=== PATIENT | female | born 1935 | race Caucasian/White ===

== ENCOUNTER 2016-06-19 20:59 | Inpatient (IN) | payer OTHER, MEDICAID ==
[~2016-06-19] VITALS: Ht 149.9 cm; Wt 35.8 kg
[2016-06-19 21:25] VITALS: Ht 149.9 cm; Wt 35.8 kg
[2016-06-19] MEDS ORDERED: SOD CHLORIDE 0.9% 1,000 ML IV STA (21:25)
[2016-06-19 21:37] LABS: ADD SCAN DIFF NO
[2016-06-19 21:39] LABS: ABNORMAL IP MESSAGE 1; HEMATOCRIT 43.8 % (37.0-47.0); HEMOGLOBIN 14.2 g/dl (12.0-16.0); MEAN CORPUSCULAR HEMOGLOBIN 28.9 pg (29.0-33.0); MEAN CORPUSCULAR HGB CONC 32.4 g/dl (32.0-37.0); MEAN CORPUSCULAR VOLUME 89.2 fl (82.0-101.0); MEAN PLATELET VOLUME 9.8 fl (7.4-10.4); PLATELET COUNT 291 10^3/UL (140-415); RED BLOOD COUNT 4.91 10^6/ul (4.20-5.40); RED CELL DISTRIBUTION WIDTH 12.3 % (11.5-14.5); WHITE BLOOD COUNT 21.2 10^3/ul (4.8-10.8)
[2016-06-19 21:50] LABS: INR 1.08; PT RATIO 1.1
[2016-06-19 21:52] LABS: ALBUMIN 3.6 g/dl (3.3-4.9)
[2016-06-19 21:53] LABS: POTASSIUM 3.9 mmol/L (3.5-5.1)
[2016-06-19 21:55] LABS: ALBUMIN/GLOBULIN RATIO 1.56; BILIRUBIN,INDIRECT 0.7 mg/dl (0-1.1); BILIRUBIN,TOTAL 0.7 mg/dl (0.2-1.3); CALCIUM 9.2 mg/dl (8.4-10.2); CREATININE 0.6 mg/dl (0.44-1.00); TOTAL PROTEIN 5.9 g/dl (6.1-8.1)
[2016-06-19 22:05] LABS: TROPONIN-I 0.049 ng/ml (0.00-0.12)
--- NOTE | 2016-06-19 22:07 | RADRPT ---
PROCEDURE: XR Chest. CLINICAL INDICATION: Chest pain. Abdominal pain TECHNIQUE: Portable AP upright view of the chest was obtained. COMPARISON: None. FINDINGS: The cardiomediastinal silhouette is within normal limits. The lungs are hyperinflated but show no e vidence of infiltrates. There is no evidence for pleural effusion, pneumothorax or pulmonary vascul ar congestion. The osseous structures are intact with no evidence for acute abnormality. Calcificat ion of the aorta is present. No free air seen below the diaphragm. RPTAT:HJJR IMPRESSION: 1. Hyperinflation of the lungs concerning for chronic obstructive pulmonary disease without evidenc e of acute intrathoracic abnormality. 2. Aortic atherosclerosis is present. Physician Osvaldo Date Time Electronically viewed and signed by Antonio Garibay Physician on 06/19/2016 22:07 JR/
[2016-06-19 22:10] LABS: LYMPHOCYTES # 1.5 10^3/ul (0.8-2.9); MONOCYTE # 2.3 10^3/ul (0.3-0.9); NEUTROPHIL # 17.4 10^3/ul (1.6-7.5)
[2016-06-19 22:29] LABS: ADD UMIC YES; URINE BILIRUBIN (Dip) 1+ (NEGATIVE); URINE BLOOD (Dip) NEGATIVE (NEGATIVE); URINE COLOR YELLOW (YELLOW); URINE GLUCOSE (Dip) NEGATIVE (NEGATIVE); URINE KETONES (Dip) 15 (NEGATIVE); URINE LEUKOCYTE ESTERASE (Dip) NEGATIVE (NEGATIVE); URINE NITRITE (Dip) NEGATIVE (NEGATIVE); URINE TOTAL PROTEIN (Dip) 2+ (NEGATIVE); URINE UROBILINOGEN (Dip) 1.0 E.U./dL (0.1-1.0)
[2016-06-19 22:30] VITALS: TEMP 98.7
[2016-06-19] MEDS ORDERED: ACETAMINOPHEN 325 MG TAB PO PRN (22:30)
[2016-06-19] MEDS ORDERED: ONDANSETRON 4 MG INJ IV PRN (22:30)
[2016-06-19 22:45] LABS: SQUAMOUS EPITHELIAL CELL,UR MODERATE; URINE RBCS 0-2 /HPF (0)
--- NOTE | 2016-06-19 22:58 | ERA ---
ER Documentation Chief Complaint Date/Time DATE: 06/19/16 TIME: 22:56 Chief Complaint N/V X 6 MONTHS, MESENTERIC ISCHEMIA PER OUTSIDE HOSPITAL. HPI Patient is a 1-year-old female with CHF, hypertension, and diabetes who presents with mesenteric ischemia. The patient was brought in by ambulance. The patient was diagnosed with mesenteric ischemia at another hospital. The patient was transferred to [facility] for consultation with Dr. James who is planning to put in a stent. The patient has abdominal pain with nausea and vomiting over the past 6 months. She denies bloody stools. The abdominal pain was diffuse. Her white blood cell count was elevated at the outside hospital. Upon review of old medical records this is the first visit to our emergency department. She says that her primary doctor is in [place]. ROS All systems reviewed and are negative except as per history of present illness. Allergies Allergies: Coded Allergies: aspirin (Unverified Allergy, Unknown, 06/19/16) bee venom protein (honey bee) (Unverified Allergy, Unknown, 06/19/16) ibuprofen (Unverified Allergy, Unknown, 06/19/16) PMhx/Soc Anesthesia Reaction: No Hx Neurological Disorder: No Hx Respiratory Disorders: No Hx Psychiatric Problems: No Hx Miscellaneous Medical Probl: Yes (DM, CKD, COPD) Hx Alcohol Use: No Hx Substance Use: No Hx Tobacco Use: No Smoking Status: Unknown if ever smoked FmHx Family History: No diabetes Physical Exam Vitals Vital Signs Date Time Temp Pulse Resp B/P Pulse Ox O2 Delivery O2 Flow Rate FiO2 06/19/16 21:25 98.6 79 17 148/99 100 Physical Exam Const: Mild distress secondary to pain Head: Atraumatic Eyes: Normal Conjunctiva ENT: Normal External Ears, Nose and Mouth. Neck: Full range of motion..~ No meningismus. Resp: Clear to auscultation bilaterally Cardio: Regular rate and rhythm, no murmurs Abd: Soft, diffuse tenderness to palpation Skin: No petechiae or rashes Back: No midline or flank tenderness Ext: No cyanosis, or edema Neur: Awake and alert Psych: Normal Mood and Affect Result Diagram: 06/19/16213106/19/162131 Results 24 hrs Laboratory Tests Test 06/19/16 21:32 06/19/16 22:10 White Blood Count 21.210^3/ul Red Blood Count 4.9110^6/ul Hemoglobin 14.2g/dl Hematocrit 43.8% Mean Corpuscular Volume 89.2fl Mean Corpuscular Hemoglobin 28.9pg Mean Corpuscular Hemoglobin Concent 32.4g/dl Red Cell Distribution Width 12.3% Platelet Count 49711^3/UL Mean Platelet Volume 9.8fl Neutrophils % 82.0% Lymphocytes % 7.0% Monocytes % 11.0% Neutrophils # 17.410^3/ul Lymphocytes # 1.510^3/ul Monocytes # 2.310^3/ul Prothrombin Time 14.0Sec Prothrombin Time Ratio 1.1 INR International Normalized Ratio 1.08 Activated Partial Thromboplast Time 25.0Sec Sodium Level 136mmol/L Potassium Level 3.9mmol/L Chloride Level 98mmol/L Carbon Dioxide Level 26mmol/L Anion Gap 16 Blood Urea Nitrogen 15mg/dl Creatinine 0.60mg/dl Glucose Level 171mg/dl Calcium Level 9.2mg/dl Total Bilirubin 0.7mg/dl Direct Bilirubin 0.00mg/dl Indirect Bilirubin 0.7mg/dl Aspartate Amino Transf (AST/SGOT) 21IU/L Alanine Aminotransferase (ALT/SGPT) 26IU/L Alkaline Phosphatase 78IU/L Troponin I 0.049ng/ml Total Protein 5.9g/dl Albumin 3.6g/dl Globulin 2.30g/dl Albumin/Globulin Ratio 1.56 Lipase 13U/L Urine Color YELLOW Urine Clarity CLEAR Urine pH 6.0 Urine Specific [place] >=1.030 Urine Ketones 15 Urine Nitrite NEGATIVE Urine Bilirubin 1+ Urine Ictotest Pending Urine Urobilinogen 1.0 E.U./dL Urine Leukocyte Esterase NEGATIVE Urine Microscopic RBC 0-2/HPF Urine Microscopic WBC 0-2/HPF Urine Squamous Epithelial Cells MODERATE Urine Hemoglobin NEGATIVE Urine Glucose NEGATIVE% Urine Total Protein 2+ Current Medications Medications (Trade) Dose Ordered Sig/Gregory Route PRN Reason Start Time Stop Time Status Last Admin Dose Admin Sodium Chloride (NS) 1,000 ml @ 1,000 mls/hr Q1H STAT IV 06/19/16 21:25 06/19/16 22:24 DC 06/19/16 21:39 Ondansetron HCl (Zofran Inj) 4 mg BRIDGE ORDER PRN IV NAUSEA AND/OR VOMITING 06/19/16 22:30 06/20/16 22:29 Acetaminophen (Tylenol Tab) 650 mg ER BRIDGE PRN PO MILD PAIN/FEVER 06/19/16 22:30 06/20/16 22:29 Procedures/MDM EKG read by me: Rate/Rhythm: Regular rate and rhythm at a normal rate Intervals: Normal Impression: No evidence of ischemia or arrhythmia Smoking Cessation Therapy: Pt. was lectured for greater than 3 minutes on the health risks of continued smoking and the benefits of cessation. Patient is a 80-year-old female who presents with leukocytosis and acute mesenteric ischemia. I spoke with Dr. James who will see the patient in consultation. I spoke with Dr. Shah as the patient has SCAN O and will admit the patient to a medical surgical bed. Departure Diagnosis: Primary Impression: Leukocytosis Qualified Code: D72.829 - Leukocytosis, unspecified type Additional Impression: Acute mesenteric ischemia FRANCISCA SELBY MD Jun 19, 2016 22:58
[2016-06-19 23:04] LABS: ICTOTEST NEGATIVE (NEGATIVE)
[2016-06-19 23:30] VITALS: BP 138/62; RESP 18
[2016-06-20] MEDS ORDERED: LOVA20TA PO (01:34)
[2016-06-20] MEDS ORDERED: GABA300C16 PO (01:34)
[2016-06-20] MEDS ORDERED: CLOP75TA27 PO (01:34)
[2016-06-20] MEDS ORDERED: METF500T4 PO ×2 (01:34→06:22)
[2016-06-20] MEDS ORDERED: LISI40TA9 PO (01:34)
--- NOTE | 2016-06-20 01:40 | QN ---
Documentation Comment H&P dict a/p 1. gi: abdo pain, weight loss, nausea and vomiting, likely all related to mesenteric ischemia, await angiogram and anticipated angioplasty/stent 2. leukocytosis, likelty related to #1 3. dm 4. tobacco abuse, cessartion counselled 5. copd 6. dm 7. proph: KAYLEIGH Palm MD Jun 20, 2016 01:40
--- NOTE | 2016-06-20 01:57 | HP ---
DATE OF ADMISSION: 06/19/2016 CHIEF COMPLAINT: Abdominal pain. HISTORY OF PRESENT ILLNESS: Ms. Beckett presents to the emergency room at [facility] with ab dominal pain and nausea. This has been ongoing for the last 6 months or so, but has become progress ively worse with ____ pain with any attempt at eating. When she eats, the pain is worse. She occas ionally does vomit and occasionally not. She does state there has been mild diarrhea. No fevers or chills. She has known stenosis of the superior mesenteric artery for the last 6 months or so while this has been going on. She does acknowledge there has been approximately 40 pounds of weight loss over the same period of time. PAST MEDICAL HISTORY: Significant for tobacco abuse, hypertension, hyperlipidemia, COPD. MEDICATIONS OUTPATIENT: Include: 1. Plavix 75 mg daily. 2. Lisinopril 40 mg daily. 3. Lovastatin 20 mg daily. 4. Neurontin 300 mg daily. 5. Metformin 500 mg daily. ALLERGIES: 1. ASPIRIN. 2. IBUPROFEN. SOCIAL HISTORY: The patient lives at home in [place] with her , independent of activities of daily living. Does occasionally use a cane or walker for ambulation. Is a current smoker. Leonard es alcohol or illicit drug use. FAMILY HISTORY: Noncontributory. REVIEW OF SYSTEMS: Five systems reviewed and found not to be revealing. PHYSICAL EXAMINATION: VITAL SIGNS: Blood pressure is 138/62, pulse rate 68, respirations 18, temperature is 98.3, satting 95% on room air. GENERAL: Pleasant woman in no acute distress, alert, and oriented x3. HEENT: Normocephalic, atraumatic without scleral icterus, perioral cyanosis. Mucous membranes are dry. NECK: Soft and supple without masses. No evidence of jugular venous distention or carotid bruits. CHEST: Clear to auscultation and percussion bilaterally. HEART: Regular rate and rhythm. S1, S2. No added sounds. ABDOMEN: Soft, nontender, nondistended without palpable hepatosplenomegaly. EXTREMITIES: Without clubbing, cyanosis, or edema. Feet are cold. Pedal pulses are not palpable w ith delayed capillary refill. SKIN: Without rashes. NEUROLOGIC: Grossly intact. LABORATORY STUDIES: Reveal a hemoglobin of 14.2 g/dL, white count 21,200; platelets of 291,000. IN R is 1.08. Sodium 136, potassium 3.9, chloride 98, bicarbonate 26, BUN 15, creatinine 0.6, glucose 171. Liver function tests are unremarkable. UA is negative for signs of infection. The patient joseph d a chest x-ray, which is normal. She brings a copy of the report from a CT scan done in the ambula tory setting, which does comment on high grade stenosis of the superior mesenteric artery, which was done in April of this year. ASSESSMENT AND PLAN: 1. Gastrointestinal. The patient with abdominal pain, nausea, vomiting, weight loss, likely all re lated to superior mesenteric artery stenosis. Dr. James has been notified prior to the patient' s arrival and he plans to do angioplasty in the morning. We will plan to keep patient n.p.o. at thi s time. 2. Leukocytosis, almost certainly related to gastrointestinal complaint. Continue to monitor. 3. Cardiac. The patient with peripheral vascular disease. Continue secondary prevention. 4. Pulmonary. The patient with ongoing tobacco abuse, cessation is counseled. 5. Chronic obstructive pulmonary disease, currently quiescent. Continue to monitor. 6. Prophylaxis with DWAYNE hector. Dictated By: KAYLEIGH CUBA MD RER/NTS Conf#: [id number] DID#: [id number]
[2016-06-20] MEDS ORDERED: INSULIN ASPART [NOVOLOG] 3 ML PEN SC ONE (02:00)
[2016-06-20] MEDS ORDERED: LISINOPRIL 20 MG TAB PO PRN (02:00)
[2016-06-20] MEDS ORDERED: ALBUTEROL/IPRATROPIUM (NEB) 3 ML AMP HHN PRN (02:00)
[2016-06-20] MEDS ORDERED: ACETAMINOPHEN 325 MG TAB PO PRN (02:00)
[2016-06-20] MEDS: SOD CHLORIDE 0.9% 1,000 ML IV SCH ×3 (02:21→13:12)
[2016-06-20 07:53] VITALS: BP 135/64; RESP 19
[2016-06-20] MEDS: GABAPENTIN 300 MG CAP PO SCH (08:34)
[2016-06-20] MEDS: CLOPIDOGREL 75 MG TAB PO SCH (08:34)
[2016-06-20] MEDS: morphine 4 MG/ML VIAL IV PRN (10:42)
--- NOTE | 2016-06-20 12:39 | PN ---
Date/Time of Note Date/Time of Note DATE: 06/20/16 TIME: 12:38 Assessment/Plan VTE Prophylaxis VTE Prophylaxis Intervention: SCD's Lines/Catheters IV Catheter Type (from Nrsg): Saline Lock Assessment/Plan Assessment/Plan 80 yo female with: 1. Abdominal pain, nausea, vomiting, weight loss, likely all related to superior mesenteric artery stenosis and concerns for mesenteric ischemia now Dr. James has been notified prior to the patient's arrival and he plans to do angioplasty today per reports Keeping NPO Continue IVF and IV abx and anticoag with Lovenox added Follow up vascular recs after repeat CT today 2. Leukocytosis, almost certainly related to gastrointestinal complaint and possible ischemic colitis/mesenteric ischemia. Start Imipenem 3. Peripheral vascular disease. Continue secondary prevention. 4. Chronic obstructive pulmonary disease, with known tobacco use Nebs prn Monitor respiratory status. 5. Tobacco abuse, cessation is counseled. Prophylaxis: Lovenox treatment dose and PPI with GI ppx. Disposition: Vascular Surgery eval and mesenteric angio pending Subjective 24 Hr Interval Summary Free Text/Dictation Patient doing Ok today, pain controlled and NPO on IVF CT a/p with contrast pending and started on anticoag and abx per Vascular Exam/Review of Systems Vital Signs Vitals Vital Signs Date Time Temp Pulse Resp B/P Pulse Ox O2 Delivery O2 Flow Rate FiO2 06/20/16 07:53 98.0 80 19 135/64 100 06/19/16 22:30 Room Air Intake and Output 06/19/16 06/19/16 06/20/16 15:00 23:00 07:00 Intake Total 500 ml Balance 500 ml Exam Constitutional: alert, oriented, well developed Respiratory: clear to auscultation, normal air movement Cardiovascular: nl pulses, regular rate and rhythm Gastrointestinal: soft, tender (diffuse abdomen ) Musculoskeletal: nl extremities to inspection Extremities: normal pulses, other (no edema, clubbing or cyaosis ) Neurological: LABORER CHEMICAL PROCESSING II-XII intact, nl mental status, nl speech, nl strength Results Result Diagram: 06/19/16213106/19/162131 Results 24 hrs Laboratory Tests Test 06/19/16 21:32 06/19/16 22:10 06/20/16 02:19 06/20/16 03:14 White Blood Count 21.2 H Red Blood Count 4.91 Hemoglobin 14.2 Hematocrit 43.8 Mean Corpuscular Volume 89.2 Mean Corpuscular Hemoglobin 28.9 L Mean Corpuscular Hemoglobin Concent 32.4 Red Cell Distribution Width 12.3 Platelet Count 291 Mean Platelet Volume 9.8 Neutrophils % 82.0 H Lymphocytes % 7.0 L Monocytes % 11.0 Neutrophils # 17.4 H Lymphocytes # 1.5 Monocytes # 2.3 H Prothrombin Time 14.0 Prothrombin Time Ratio 1.1 INR International Normalized Ratio 1.08 Activated Partial Thromboplast Time 25.0 Sodium Level 136 Potassium Level 3.9 Chloride Level 98 Carbon Dioxide Level 26 Anion Gap 16 Blood Urea Nitrogen 15 Creatinine 0.60 Glucose Level 171 Calcium Level 9.2 Total Bilirubin 0.7 Direct Bilirubin 0.00 Indirect Bilirubin 0.7 Aspartate Amino Transf (AST/SGOT) 21 Alanine Aminotransferase (ALT/SGPT) 26 Alkaline Phosphatase 78 Troponin I 0.049 Total Protein 5.9 L Albumin 3.6 Globulin 2.30 Albumin/Globulin Ratio 1.56 Lipase 13 L Urine Color YELLOW Urine Clarity CLEAR Urine pH 6.0 Urine Specific [place] >=1.030 H Urine Ketones 15 Urine Nitrite NEGATIVE Urine Bilirubin 1+ H Urine Ictotest NEGATIVE Urine Urobilinogen 1.0 E.U./dL Urine Leukocyte Esterase NEGATIVE Urine Microscopic RBC 0-2 Urine Microscopic WBC 0-2 Urine Squamous Epithelial Cells MODERATE Urine Hemoglobin NEGATIVE Urine Glucose NEGATIVE Urine Total Protein 2+ H Bedside Glucose 176 156 Medications Medications Current Medications Sodium Chloride (NS) 1,000 ml @ 100 mls/hr Q10H IV Last administered on 02:21; Admin Dose 100 MLS/HR; Start 06/20/16 at 02:00 Acetaminophen (Tylenol Tab) 650 mg Q4H PRN PO PAIN AND OR ELEVATED TEMP; Start 06/20/16 at 02:00 Morphine Sulfate (morphine) 4 mg Q4H PRN IV pain Last administered on 10:42; Admin Dose 4 MG; Start 06/20/16 at 02:00 Ondansetron HCl (Zofran Inj) 4 mg Q4H PRN IV NAUSEA AND/OR VOMITING; Start 02/24 at 02:00 Hydralazine HCl (Apresoline) 25 mg Q6 PRN PO sbp>160; Start 06/20/16 at 02:00 Clopidogrel Bisulfate (plaVIX) 75 mg DAILY PO Last administered on 06/20/16 08 :34; Admin Dose 75 MG; Start 06/20/16 at 09:00 Gabapentin (Neurontin) 300 mg DAILY PO Last administered on 06/20/16 08:34; Admin Dose 300 MG; Start 06/20/16 at 09:00 Lisinopril (Zestril) 40 mg DAILY PRN PO ELEVATED BLOOD PRESSURE; Start at 02:00 Atorvastatin Calcium (Lipitor) 10 mg DAILY@21 PO ; Start 06/20/16 at 21:00 NITIN ZEPEDA Jun 20, 2016 12:39
[2016-06-20] MEDS ORDERED: IOHEXOL 14.3 MG(I)/ML (ADULT) BTL PO ONE (13:30)
[2016-06-20] MEDS: NICOTINE (21 MG/24 HR) PATCH TRANSDERM SCH (13:30)
[2016-06-20] MEDS ORDERED: ENOXAPARIN 40 MG/0.4 ML SYG SC SCH (13:30)
[2016-06-20] MEDS ORDERED: GLUCAGON 1 MG INJ IM PRN (14:00)
[2016-06-20] MEDS ORDERED: DEXTROSE 50% 50 ML SYRINGE IV PRN ×2 (14:00)
[2016-06-20] MEDS ORDERED: GLUCOSE GEL 15 GRAM TUBE BUCCAL PRN (14:00)
[2016-06-20] MEDS ORDERED: GLUCOSE GEL 15 GRAM TUBE PO PRN ×2 (14:00)
[2016-06-20 14:13] LABS: INR 1.17; PT RATIO 1.2
[2016-06-20 14:14] LABS: PARTIAL THROMBOPLASTIN TIME 27.2 Sec (25.0-35.0)
[2016-06-20] MEDS ORDERED: SOD CHLORIDE 0.9% 100 ML ONE (14:23)
[2016-06-20] MEDS ORDERED: IODIXANOL LOCM 100 ML BTL ONE (14:23)
[2016-06-20] MEDS: INSULIN ASPART [NOVOLOG] 3 ML PEN SC SCH ×3 (15:00→23:43)
[2016-06-20] MEDS: IMIPENEM-CILAST 250MG IV (PMX) 100 ML IVPB SCH ×2 (15:03→23:39)
--- NOTE | 2016-06-20 16:40 | RADRPT ---
PROCEDURE: CT Abdomen and Pelvis with contrast. CLINICAL INDICATION: Abdominal pain. Evaluate for mesenteric ischemia. TECHNIQUE: CT scan of the abdomen and pelvis with contrast was performed on a multi-detector high- resolution CT scanner. The patient was scanned following the uncomplicated intravenous administrati on of 75 cc of Visipaque 320. Coronal and sagittal reformatted images were obtained from the axial source images. Images were reviewed on a high-resolution PACS workstation. The total exam CTDI equal s 4.47 mGy and the total exam DLP equals 198.11 mGy-cm. One or more of the following dose reduction techniques were used: Automated exposure control. Adjustment of the mA and/or kV according to patient size. Use of iterative reconstruction technique. COMPARISON: None. FINDINGS: CT abdomen: The lung bases are clear. The heart size is normal, without pericardial thickening or effusion. Th e liver is normal in size and density without focal mass or intrahepatic biliary dilatation. The sp derek is normal in size and homogeneous in density. The stomach is partially collapsed, but is gross ly unremarkable. The pancreas as visualized is normal. The gallbladder and biliary tree are unrema rkable and there is no evidence for biliary dilatation. The adrenal glands are symmetric and normal . There is atrophic left kidney with mild delayed enhancement. Right kidney is unremarkable. There a re a few small cortical cysts in bilateral kidneys measures up to 1.2 cm in the lower pole right kid curt. Extensive concentric calcific atherosclerotic plaques are seen involving the abdominal aorta and jo ann ac arteries with no aneurysmal dilatation. There is some ostial stenosis of the celiac artery. Ther e is suspected high-grade stenosis of the SMA. There is severe ostial stenosis of the left renal art maddy. There is probable moderate stenosis of the right renal artery. There is probable moderate sten osis of the proximal left common iliac artery. Heavily calcified circumferential plaque involving t he iliac arteries with suspected a high-grade stenosis in mid distal right common iliac artery. There is no retroperitoneal lymphadenopathy. The willy hepatis region is clear. The bowel and mese ntery, as visualized, are equally unremarkable. CT pelvis: The evaluation of the pelvis is somewhat limited due to orthopedic hardware in the hips. The small bowel loops situated within the pelvis are unremarkable. The pelvic organs are normal. The pelvic sidewalls and inguinal regions are clear. The sigmoid colon and rectum are unremarkable. No mass, lymphadenopathy, or free fluid is seen. No acute inflammation is seen. The bladder is normal. The surrounding osseous structures are unremarkable. No osteolytic or osteoblastic lesion is detected. IMPRESSION: The evaluation of the vascularity is somewhat limited due to venous phase of the study. Consider CT A of the abdomen and pelvis for better assessment of the arteries. 1. 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 2. Heavily calcified circumferential plaque involving the abdominal aorta and iliac arteries with s uspected high-grade stenosis of the mid distal right common iliac artery and moderate stenosis of th e proximal left common iliac artery. 3. 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 4. No secondary signs of ischemic bowel. 5. Atrophic left kidney. RPTAT: BB .Arnaldo Carlin MD, MD Date Time Electronically viewed and signed by .Arnaldo Carlin MD, on 06/20/2016 16:40 .O/
[2016-06-20 19:00] VITALS: BP 115/52; RESP 20
[2016-06-20] MEDS: ATORVASTATIN 10 MG TAB PO SCH (21:12)
[2016-06-20] MEDS: DEXTROSE 5%-0.9% NACL 1,000 ML IV SCH (21:13)
--- NOTE | 2016-06-20 22:03 | CONS ---
DATE OF ADMISSION: 06/20/2016 DATE OF CONSULTATION: REASON FOR CONSULTATION: SMA stenosis. Thank you, Dr. Lloyd, for asking me to see this patient. HISTORY OF PRESENT ILLNESS: This is an 80-year-old female with a history of abdominal pain, previou sly had been worked up to have possible SMA stenosis. The patient has lost 40 pounds over the cours e of the last 6 months. The patient tells me that her pain is mostly in the mid abdomen and does ge t worse after eating. The patient was admitted, was kept n.p.o., had a CT of the abdomen with contr ast which has shown high-grade stenosis of the superior mesenteric artery, ____ heavily calcified ci rcumferential plaque involving the abdominal aorta and iliac arteries and high-grade stenosis of the right common iliac artery, moderate stenosis of the proximal left common iliac artery. PAST MEDICAL HISTORY: Significant for history of coronary artery disease. 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 Also positive for diabetes. PAST SURGICAL HISTORY: None. MEDICATIONS: 1. Plavix. 2. Lisinopril. 3. Lovastatin. 4. ____. 5. Metformin. ALLERGIES: NONE. SOCIAL HISTORY: Positive for smoking and is a current smoker. PHYSICAL EXAMINATION: GENERAL: The patient is awake, alert. She tells me her pain has subsided. VITAL SIGNS: Blood pressure is 135/64, pulse is 80, respirations 19, saturation is 100%. CARDIOVASCULAR: Regular rate and rhythm. Normal S1, S2. LUNGS: Clear. ABDOMEN: Soft. Nontender at the time of the exam. EXTREMITIES: Warm. Palpable femoral pulses. LABORATORY VALUES: White count is 21 with a left-sided shift, hemoglobin 14. INR 1.17 and a creati nine of 0.6. 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 RECOMMENDATIONS: The patient will need an angiogram, possible angioplasty. However, she is at high risk of dissection secondary to high calcification. RECOMMENDATIONS: The patient will need cardiac clearance secondary to previous MIs and congestive h eart failure prior to any procedures which may bleed into open surgical procedure. Discussed with t he patient. Will discuss with Dr. Lloyd. Dictated By: MALIA BUTLER/MARIBELL Conf#: [id number] [facility]#: [id number]
[2016-06-21] MEDS: morphine 4 MG/ML VIAL IV PRN ×2 (03:58→21:59)
[2016-06-21] MEDS: INSULIN ASPART [NOVOLOG] 3 ML PEN SC SCH ×3 (05:41→18:08)
[2016-06-21] MEDS: DEXTROSE 5%-0.9% NACL 1,000 ML IV SCH ×3 (05:43→21:55)
[2016-06-21 05:58] LABS: ADD SCAN DIFF NO
[2016-06-21 06:03] LABS: BASOPHILS % 0.4 % (0.0-2.0); EOSINOPHILS % 0.2 % (0.0-7.0); HEMATOCRIT 36.3 % (37.0-47.0); HEMOGLOBIN 11.6 g/dl (12.0-16.0); LYMPHOCYTES # 0.8 10^3/ul (0.8-2.9); LYMPHOCYTES % 10.2 % (15.0-51.0); MEAN CORPUSCULAR HEMOGLOBIN 29.1 pg (29.0-33.0); MEAN CORPUSCULAR VOLUME 91.2 fl (82.0-101.0); MEAN PLATELET VOLUME 10.1 fl (7.4-10.4); MONOCYTE # 1.2 10^3/ul (0.3-0.9); MONOCYTES % 15.1 % (0.0-11.0); NEUTROPHILS % 73.7 % (39.0-77.0); PLATELET COUNT 217 10^3/UL (140-415); RED BLOOD COUNT 3.98 10^6/ul (4.20-5.40); RED CELL DISTRIBUTION WIDTH 12.5 % (11.5-14.5); WHITE BLOOD COUNT 8.2 10^3/ul (4.8-10.8)
[2016-06-21 06:18] LABS: MAGNESIUM 1.5 mg/dl (1.7-2.5)
[2016-06-21 06:20] LABS: ALBUMIN 2.3 g/dl (3.3-4.9); ALBUMIN/GLOBULIN RATIO 1.15; BILIRUBIN,INDIRECT 0.2 mg/dl (0-1.1); BILIRUBIN,TOTAL 0.2 mg/dl (0.2-1.3); CALCIUM 7.6 mg/dl (8.4-10.2); CREATININE 0.5 mg/dl (0.44-1.00); POTASSIUM 3.6 mmol/L (3.5-5.1); TOTAL PROTEIN 4.3 g/dl (6.1-8.1)
[2016-06-21 07:31] VITALS: BP 112/56; RESP 16
[2016-06-21] MEDS: GABAPENTIN 300 MG CAP PO SCH (08:53)
[2016-06-21] MEDS: CLOPIDOGREL 75 MG TAB PO SCH (08:53)
[2016-06-21] MEDS: IMIPENEM-CILAST 250MG IV (PMX) 100 ML IVPB SCH ×2 (08:54→21:15)
[2016-06-21] MEDS: NICOTINE (21 MG/24 HR) PATCH TRANSDERM SCH (09:11)
[2016-06-21 10:48] LABS: CK-MB 5.62 ng/ml (0.0-2.4)
[2016-06-21 10:51] LABS: TROPONIN-I 0.028 ng/ml (0.00-0.12)
[2016-06-21] MEDS ORDERED: MAGNESIUM SULFATE 2 GM/50 ML 50 ML IVPB ONE (11:00)
--- NOTE | 2016-06-21 13:38 | CONS ---
DATE OF ADMISSION: 06/20/2016 DATE OF CONSULTATION: 06/21/2016 REASON FOR CONSULTATION: Preoperative evaluation. REQUESTING PHYSICIAN: Dr. Zepeda HISTORY OF PRESENT ILLNESS: Ms. Beckett is an 80-year-old female with a history of ongoing tobacco us e, hypertension, dyslipidemia, chronic obstructive pulmonary disease, who presents with 6 months of worsening abdominal pain with decreased p.o. intake and significant weight loss of approximately 30 to 40 pounds. The patient since arrival has undergone abdominal pelvic CT which revealed a suspecte d high-grade stenosis of the SMA and a heavily calcified circumferential plaque involving the abdomi nal aortoiliac arteries, suspect high-grade stenosis of the mid distal right common iliac artery and moderate stenosis of the proximal left common iliac. 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 The patient additionally was noted to have a white blood cell count on admission of 21. 2. Sodium low 134 with a normal creatinine and BUN ratio. Normal PT/INR and a negative UA. The pa francisnt's electrocardiogram reveals normal sinus rhythm, rate of 62 with normal axis and inferior biph asic T-wave abnormalities. The patient subsequently has been evaluated by vascular surgery, Dr. Kimani mcginnis, with plans to attempt a percutaneous procedure which may turn into an open procedure, and as was requested for preoperative evaluation. At this time, the patient denies chest pain, shor tness of breath, but does state that she had a VT in 2004, for which she did not receive a stent, an giogram or stress test. The patient at this time does not to exertional activities. PAST MEDICAL HISTORY: As above in the HPI. MEDICATIONS CURRENTLY IN THE HOSPITAL: 1. Lipitor 10 mg at bedtime. 2. IV fluid hydration. 3. Imipenem 4. Lovenox 40 mg subcutaneous daily. 5. Plavix 75 mg daily. 6. Gabapentin 300 mg daily. 7. Tylenol p.r.n. 8. Morphine p.r.n. 9. Zofran p.r.n. 10. Zestril 40 mg p.o. p.r.n. 11. Hydralazine p.o. p.r.n. MEDICATIONS CURRENTLY IN HOSPITAL: 1. Magnesium. 2. Lipitor 20 mg at bedtime. 3. IV fluid hydration. 4. Imipenem 5. Lovenox 35 mg subcutaneous daily. 6. Plavix 75 mg daily. 7. Gabapentin 300 mg daily. 8. Tylenol p.r.n. 9. Morphine p.r.n. 10. Zofran p.r.n. 11. Hydralazine p.r.n. 12. Zestril p.r.n. 13. DuoNeb p.r.n. ALLERGIES 1. ASPIRIN. 2. IBUPROFEN. SOCIAL HISTORY: Positive ongoing tobacco usage. Rare social ETOH. No illicit drug use. FAMILY HISTORY: No history of sudden cardiac or early CAD. REVIEW OF SYSTEMS: As above in the HPI. CONSTITUTIONAL: No fevers or chills. PULMONARY: No current shortness of breath. CARDIOVASCULAR: No current chest pain. GASTROINTESTINAL: Abdominal pain. GENITOURINARY: No hematuria. MUSCULOSKELETAL: Degenerative joint disease. PSYCHIATRIC: The patient denies depression. NEUROLOGIC: No documented history of CVA. PHYSICAL EXAMINATION: VITAL SIGNS: Temperature 98.4, blood pressure 112/56, pulse 68, respirations 16, temperature . GENERAL: The patient is alert, awake, complaining of mild abdominal discomfort. NECK: JVP approximately 8 cm of water. CHEST: Fair air movement throughout. HEART: Regular rate and rhythm. Normal S1, S2. A I/ systolic murmur, nondisplaced PMI. ABDOMEN: Positive bowel sounds. Soft. EXTREMITIES: No edema. 1+ pulses bilaterally posterior tibial. LABORATORIES: As above in HPI, with most recently from today, sodium 134, potassium 3.6, creatinine 0.5, BUN 8. White blood cell count 8.2, hemoglobin 11.6, platelet count 217. INR 1.1. UA negativ e. IMAGING STUDIES: As above in HPI. No further imaging studies for my review at this time. ECG: As above in HPI. No further electrocardiograms for my review at this time. IMPRESSION: 1. Preoperative evaluation prior to treatment for likely ischemic bowel. 2. History of myocardial infarction. 3. Abnormal electrocardiogram, with biphasic inferior T-wave abnormalities. 4. Hypertension, borderline. 5. Dyslipidemia. 6. Ongoing tobacco usage. 7. Ischemic bowel. 8. Poor p.o. intake secondary to ischemic bowel, with subsequent weight loss. 9. Hyponatremia. RECOMMENDATIONS: 1. At this time would check a repeat EKG to assess for any significant changes and one additional t roponin to ensure the patient has not had any recent coronary syndrome lending to abnormal electroca rdiogram findings. 2. Additionally check a fasting lipid panel for general risk stratification and adjust the patient' s statin therapy as necessary. 3. Will follow the patient's blood pressure currently off antihypertensives, but if blood pressure does continue to elevate intermittently will start the patient on a beta cira in the setting of p robable coronary artery disease. 4. Check a 2D echo to further assess the patient's ejection fraction, wall motion or any major valv e abnormalities, given the possibility of significant vascular procedure with stressing the body, mu ltiple cardiac risk factors, EKG abnormalities, I believe this patient would benefit from further ri sk stratification, inpatient stress testing will thus be scheduled to take place in the morning. Thank you for allowing me to take part in the care of this patient. I will continue to follow along very closely with you. Further recommendations will be made as the patient progresses through her inpatient hospital clinical course. Dictated By: BALDO MCARTHUR/MARIBELL Conf#: [id number] DID#: [id number] CC: NITIN ZEPEDA MD;*EndCC*
--- NOTE | 2016-06-21 14:47 | PN ---
Date/Time of Note Date/Time of Note DATE: 06/21/16 TIME: 14:00 Assessment/Plan VTE Prophylaxis VTE Prophylaxis Intervention: SCD's Lines/Catheters IV Catheter Type (from Nrsg): Peripheral IV Assessment/Plan Assessment/Plan 80 yo female with: 1. Abdominal pain, nausea, vomiting, weight loss, likely all related to superior mesenteric artery stenosis and concerns for mesenteric ischemia now Dr. James has been notified prior to the patient's arrival and he plans to do angioplasty today per reports CT a/p here with suspected high-grade stenosis of the SMA. Per Dr Etienne, patient needs Cardiology eval, appreciate Dr Brannon' evaluation, given high risk of procedure, patient will require stress test in AM and further rec per Cardio and scheduling of procedure per Dr Etienne Will put on clears with NPO after midnight if Ok with Vascular Continue IVF and IV abx and anticoag with Lovenox 40 mg q24h per pharm recs Follow up vascular recs after repeat CT today 2. Leukocytosis, almost certainly related to gastrointestinal complaint and possible ischemic colitis/mesenteric ischemia. WBC back down to normal. On Imipenem 3. Peripheral vascular disease. Continue secondary prevention. 4. Chronic obstructive pulmonary disease, with known tobacco use Nebs prn Monitor respiratory status. 5. Tobacco abuse, cessation is counseled. Nicotine patch Prophylaxis: Lovenox treatment dose and PPI with GI ppx. Disposition: Clears, NPO after midnight, Stress test in AM, and vascular Surgery eval and mesenteric angio pending cardio evaluation. Subjective 24 Hr Interval Summary Free Text/Dictation Patient doing Ok this AM Cardiac eval ongoing with stress test planned for AM Clears and NPO after MN Exam/Review of Systems Vital Signs Vitals Vital Signs Date Time Temp Pulse Resp B/P Pulse Ox O2 Delivery O2 Flow Rate FiO2 06/21/16 07:31 98.4 68 16 112/56 96 06/19/16 22:30 Room Air Intake and Output 06/20/16 06/20/16 06/21/16 15:00 23:00 07:00 Intake Total 700 ml 900 ml 750 ml Output Total 200 ml Balance 700 ml 900 ml 550 ml Exam Constitutional: alert, frail, oriented Respiratory: clear to auscultation, normal air movement Cardiovascular: nl pulses, regular rate and rhythm Gastrointestinal: other (diffuse TTP), soft Musculoskeletal: nl extremities to inspection Extremities: normal pulses, other (no edema, clubbing or cyanosis ) Neurological: YOUTUBER II-XII intact, nl mental status, nl speech, nl strength Results Result Diagram: 06/21/1651706/21/1618 Results 24 hrs Laboratory Tests Test 06/20/16 15:20 06/20/16 19:08 06/20/16 19:37 06/20/16 19:53 Bedside Glucose 79 65 L 144 158 Test 06/20/16 23:38 06/21/16 05:18 06/21/16 05:36 06/21/16 10:18 Bedside Glucose 150 159 White Blood Count 8.2 # Red Blood Count 3.98 L Hemoglobin 11.6 L Hematocrit 36.3 L Mean Corpuscular Volume 91.2 Mean Corpuscular Hemoglobin 29.1 Mean Corpuscular Hemoglobin Concent 32.0 Red Cell Distribution Width 12.5 Platelet Count 217 # Mean Platelet Volume 10.1 Neutrophils % 73.7 Lymphocytes % 10.2 L Monocytes % 15.1 H Eosinophils % 0.2 Basophils % 0.4 Nucleated Red Blood Cells % 0.0 Neutrophils # 6.0 Lymphocytes # 0.8 Monocytes # 1.2 H Eosinophils # 0.0 Basophils # 0.0 Nucleated Red Blood Cells # 0.0 Sodium Level 134 L Potassium Level 3.6 Chloride Level 107 Carbon Dioxide Level 27 Anion Gap 4 #L Blood Urea Nitrogen 8 Creatinine 0.50 Glucose Level 166 Calcium Level 7.6 L Phosphorus Level 2.0 L Magnesium Level 1.5 L Total Bilirubin 0.2 Direct Bilirubin 0.00 Indirect Bilirubin 0.2 Aspartate Amino Transf (AST/SGOT) 17 Alanine Aminotransferase (ALT/SGPT) 26 Alkaline Phosphatase 59 Total Protein 4.3 #L Albumin 2.3 #L Globulin 2.00 Albumin/Globulin Ratio 1.15 Creatine Kinase 52 Creatine Kinase Index 10.8 Creatinine Kinase MB (Mass) 5.62 H Troponin I 0.028 Test 06/21/16 11:59 Bedside Glucose 164 Medications Medications Current Medications Acetaminophen (Tylenol Tab) 650 mg Q4H PRN PO PAIN AND OR ELEVATED TEMP; Start 06/20/16 at 02:00 Morphine Sulfate (morphine) 4 mg Q4H PRN IV pain Last administered on t 03:58; Admin Dose 4 MG; Start 06/20/16 at 02:00 Ondansetron HCl (Zofran Inj) 4 mg Q4H PRN IV NAUSEA AND/OR VOMITING; Start 02/24 at 02:00 Hydralazine HCl (Apresoline) 25 mg Q6 PRN PO sbp>160; Start 06/20/16 at 02:00 Clopidogrel Bisulfate (plaVIX) 75 mg DAILY PO Last administered on 06/21/16 08 :53; Admin Dose 75 MG; Start 06/20/16 at 09:00 Gabapentin (Neurontin) 300 mg DAILY PO Last administered on 06/21/16 08:53; Admin Dose 300 MG; Start 06/20/16 at 09:00 Lisinopril (Zestril) 40 mg DAILY PRN PO ELEVATED BLOOD PRESSURE; Start at 02:00 Atorvastatin Calcium 10 mg 10 mg DAILY@21 PO Last administered on 06/20/16 21: 12; Admin Dose 10 MG; Start 06/20/16 at 21:00 Imipenem/ Cilastatin Sodium (Primaxin 250 Mg/ 100 ml (Pmx)) 100 ml @ 100 mls/ hr Q12 IVPB Last administered on 06/21/16 08:54; Admin Dose 100 MLS/HR; Start 06/20/16 at 14:30 Nicotine (Nicoderm 21 Mg/ 24hr) 1 patch DAILY TRANSDERM Last administered on 09:11; Admin Dose 1 PATCH; Start 06/20/16 at 13:30 Insulin Aspart (Novolog Insulin Pen) NOVOLOG *MILD* ALGORI... Q6 SC Last administered on 06/21/16 12:30; Admin Dose 1 UNIT; Start 06/20/16 at 14:30 Miscellaneous Information 1 ea NOTE XX ; Start 06/20/16 at 14:00 Glucose (Glutose) 15 gm Q15M PRN PO DECREASED GLUCOSE; Start 06/20/16 at 14:00 Glucose (Glutose) 22.5 gm Q15M PRN PO DECREASED GLUCOSE; Start 06/20/16 at 14: 00 Dextrose (D50w Syringe) 25 ml Q15M PRN IV DECREASED GLUCOSE Last administered on 06/20/16 19:19; Admin Dose 25 ML; Start 06/20/16 at 14:00 Dextrose (D50w Syringe) 50 ml Q15M PRN IV DECREASED GLUCOSE; Start 06/20/16 at 14:00 Glucagon (Glucagen) 1 mg Q15M PRN IM DECREASED GLUCOSE; Start 06/20/16 at 14:00 Glucose 15 gm 15 gm Q15M PRN BUCCAL DECREASED GLUCOSE; Start 06/20/16 at 14:00 Dextrose/Sodium Chloride (D5-NS) 1,000 ml @ 100 mls/hr Q10H IV Last administered on 06/21/16t 09:15; Admin Dose 100 MLS/HR; Start 06/20/16 at 20:30 Enoxaparin Sodium (Lovenox) 40 mg Q24H SC ; Start 06/21/16 at 14:00 Procedures Procedures PROCEDURE: CT Abdomen and Pelvis with contrast. CLINICAL INDICATION: Abdominal pain. Evaluate for mesenteric ischemia. TECHNIQUE: CT scan of the abdomen and pelvis with contrast was performed on a multi-detector high-resolution CT scanner. The patient was scanned following the uncomplicated intravenous administration of 75 cc of Visipaque 320. Coronal and sagittal reformatted images were obtained from the axial source images. Images were reviewed on a high-resolution PACS workstation. The total exam CTDI equals 4.47 mGy and the total exam DLP equals 198.11 mGy-cm. One or more of the following dose reduction techniques were used: Automated exposure control. Adjustment of the mA and/or kV according to patient size. Use of iterative reconstruction technique. COMPARISON: None. FINDINGS: CT abdomen: The lung bases are clear. The heart size is normal, without pericardial thickening or effusion. The liver is normal in size and density without focal mass or intrahepatic biliary dilatation. The spleen is normal in size and homogeneous in density. The stomach is partially collapsed, but is grossly unremarkable. The pancreas as visualized is normal. The gallbladder and biliary tree are unremarkable and there is no evidence for biliary dilatation. The adrenal glands are symmetric and normal. There is atrophic left kidney with mild delayed enhancement. Right kidney is unremarkable. There are a few small cortical cysts in bilateral kidneys measures up to 1.2 cm in the lower pole right kidney. Extensive concentric calcific atherosclerotic plaques are seen involving the abdominal aorta and iliac arteries with no aneurysmal dilatation. There is some ostial stenosis of the celiac artery. There is suspected high-grade stenosis of the SMA. There is severe ostial stenosis of the left renal artery. There is probable moderate stenosis of the right renal artery. There is probable moderate stenosis of the proximal left common iliac artery. Heavily calcified circumferential plaque involving the iliac arteries with suspected a high-grade stenosis in mid distal right common iliac artery. There is no retroperitoneal lymphadenopathy. The willy hepatis region is clear. The bowel and mesentery, as visualized, are equally unremarkable. CT pelvis: The evaluation of the pelvis is somewhat limited due to orthopedic hardware in the hips. The small bowel loops situated within the pelvis are unremarkable. The pelvic organs are normal. The pelvic sidewalls and inguinal regions are clear. The sigmoid colon and rectum are unremarkable. No mass, lymphadenopathy , or free fluid is seen. No acute inflammation is seen. The bladder is normal. The surrounding osseous structures are unremarkable. No osteolytic or osteoblastic lesion is detected. IMPRESSION: The evaluation of the vascularity is somewhat limited due to venous phase of the study. Consider CTA of the abdomen and pelvis for better assessment of the arteries. 1. 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 2. Heavily calcified circumferential plaque involving the abdominal aorta and iliac arteries with suspected high-grade stenosis of the mid distal right common iliac artery and moderate stenosis of the proximal left common iliac artery. 3. 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 4. No secondary signs of ischemic bowel. 5. Atrophic left kidney. RPTAT: BB .Arnaldo Carlin MD, MD Date Time Electronically viewed and signed by .Arnaldo Carlin MD, MD on 06/20/2016 16:40 NITIN ZEPEDA Jun 21, 2016 14:47
[2016-06-21] MEDS: ENOXAPARIN 40 MG/0.4 ML SYG SC SCH (14:53)
[2016-06-21 19:01] LABS: CK-MB 4.91 ng/ml (0.0-2.4)
[2016-06-21 19:04] LABS: TROPONIN-I 0.025 ng/ml (0.00-0.12)
[2016-06-21 19:38] VITALS: BP 114/59; RESP 18
--- NOTE | 2016-06-21 20:27 | PN ---
Date/Time of Note Date/Time of Note DATE: 06/21/16 TIME: 20:24 Assessment/Plan VTE Prophylaxis VTE Prophylaxis Intervention: other Lines/Catheters IV [facility]ter Type [facility] Central line still needed: No Urinary Cath still in place: No Assessment/Plan Chief Complaint/Hosp Course RECOMMENDATIONS: The patient will need an angiogram, possible angioplasty. However, she is at high risk of dissection secondary to high calcification. RECOMMENDATIONS: The patient will need cardiac clearance secondary to previous MIs and congestive heart failure prior to any procedures which may bleed into open surgical procedure. Discussed with the patient. Will discuss with Dr. Lloyd. Problems: Subjective 24 Hr Interval Summary Gastrointestinal: no complaints Genitourinary: no complaints Musculoskeletal: no complaints Skin: no complaints Exam/Review of Systems Vital Signs Vitals Vital Signs Date Time Temp Pulse Resp B/P Pulse Ox O2 Delivery O2 Flow Rate FiO2 06/21/16 19:38 98.0 82 18 114/59 96 06/19/16 22:30 Room Air Intake and Output 06/20/16 06/20/16 06/21/16 15:00 23:00 07:00 Intake Total 700 ml 900 ml 750 ml Output Total 200 ml Balance 700 ml 900 ml 550 ml Exam Neck: non-tender, supple Respiratory: clear to auscultation, normal air movement Cardiovascular: nl pulses, regular rate and rhythm Gastrointestinal: nl liver, spleen, non-tender, soft Results Result Diagram: 06/21/16 0518 06/21/16 0518 Results 24 hrs Laboratory Tests Test 06/20/16 23:38 06/21/16 05:18 06/21/16 05:36 06/21/16 10:18 Bedside Glucose 150 159 White Blood Count 8.2 # Red Blood Count 3.98 L Hemoglobin 11.6 L Hematocrit 36.3 L Mean Corpuscular Volume 91.2 Mean Corpuscular Hemoglobin 29.1 Mean Corpuscular Hemoglobin Concent 32.0 Red Cell Distribution Width 12.5 Platelet Count 217 # Mean Platelet Volume 10.1 Neutrophils % 73.7 Lymphocytes % 10.2 L Monocytes % 15.1 H Eosinophils % 0.2 Basophils % 0.4 Nucleated Red Blood Cells % 0.0 Neutrophils # 6.0 Lymphocytes # 0.8 Monocytes # 1.2 H Eosinophils # 0.0 Basophils # 0.0 Nucleated Red Blood Cells # 0.0 Sodium Level 134 L Potassium Level 3.6 Chloride Level 107 Carbon Dioxide Level 27 Anion Gap 4 #L Blood Urea Nitrogen 8 Creatinine 0.50 Glucose Level 166 Calcium Level 7.6 L Phosphorus Level 2.0 L Magnesium Level 1.5 L Total Bilirubin 0.2 Direct Bilirubin 0.00 Indirect Bilirubin 0.2 Aspartate Amino Transf (AST/SGOT) 17 Alanine Aminotransferase (ALT/SGPT) 26 Alkaline Phosphatase 59 Total Protein 4.3 #L Albumin 2.3 #L Globulin 2.00 Albumin/Globulin Ratio 1.15 Creatine Kinase 52 Creatine Kinase Index 10.8 Creatinine Kinase MB (Mass) 5.62 H Troponin I 0.028 Test 06/21/16 11:59 06/21/16 17:59 06/21/16 18:25 Bedside Glucose 164 162 Creatine Kinase 50 Creatine Kinase Index 9.8 Creatinine Kinase MB (Mass) 4.91 H Troponin I 0.025 Medications Medications Current Medications Acetaminophen (Tylenol Tab) 650 mg Q4H PRN PO PAIN AND OR ELEVATED TEMP; Start 06/20/16 at 02:00 Morphine Sulfate (morphine) 4 mg Q4H PRN IV pain Last administered on 03:58; Admin Dose 4 MG; Start 06/20/16 at 02:00 Ondansetron HCl (Zofran Inj) 4 mg Q4H PRN IV NAUSEA AND/OR VOMITING; Start 02/24 at 02:00 Hydralazine HCl (Apresoline) 25 mg Q6 PRN PO sbp>160; Start 06/20/16 at 02:00 Clopidogrel Bisulfate (plaVIX) 75 mg DAILY PO Last administered on 06/21/16 08 :53; Admin Dose 75 MG; Start 06/20/16 at 09:00 Gabapentin (Neurontin) 300 mg DAILY PO Last administered on 06/21/16 08:53; Admin Dose 300 MG; Start 06/20/16 at 09:00 Lisinopril (Zestril) 40 mg DAILY PRN PO ELEVATED BLOOD PRESSURE; Start at 02:00 Atorvastatin Calcium 10 mg 10 mg DAILY@21 PO Last administered on 06/20/16 21: 12; Admin Dose 10 MG; Start 06/20/16 at 21:00 Imipenem/ Cilastatin Sodium (Primaxin 250 Mg/ 100 ml (Pmx)) 100 ml @ 100 mls/ hr Q12 IVPB Last administered on 06/21/16 08:54; Admin Dose 100 MLS/HR; Start 06/20/16 at 14:30 Nicotine (Nicoderm 21 Mg/ 24hr) 1 patch DAILY TRANSDERM Last administered on 09:11; Admin Dose 1 PATCH; Start 06/20/16 at 13:30 Insulin Aspart (Novolog Insulin Pen) NOVOLOG *MILD* ALGORI... Q6 SC Last administered on 06/21/16 18:08; Admin Dose 1 UNIT; Start 06/20/16 at 14:30 Miscellaneous Information 1 ea NOTE XX ; Start 06/20/16 at 14:00 Glucose (Glutose) 15 gm Q15M PRN PO DECREASED GLUCOSE; Start 06/20/16 at 14:00 Glucose (Glutose) 22.5 gm Q15M PRN PO DECREASED GLUCOSE; Start 06/20/16 at 14: 00 Dextrose (D50w Syringe) 25 ml Q15M PRN IV DECREASED GLUCOSE Last administered on 06/20/16 19:19; Admin Dose 25 ML; Start 06/20/16 at 14:00 Dextrose (D50w Syringe) 50 ml Q15M PRN IV DECREASED GLUCOSE; Start 06/20/16 at 14:00 Glucagon (Glucagen) 1 mg Q15M PRN IM DECREASED GLUCOSE; Start 06/20/16 at 14:00 Glucose 15 gm 15 gm Q15M PRN BUCCAL DECREASED GLUCOSE; Start 06/20/16 at 14:00 Dextrose/Sodium Chloride (D5-NS) 1,000 ml @ 100 mls/hr Q10H IV Last administered on 06/21/16 09:15; Admin Dose 100 MLS/HR; Start 06/20/16 at 20:30 Enoxaparin Sodium (Lovenox) 40 mg Q24H SC Last administered on 06/21/16 14:53 ; Admin Dose 40 MG; Start 06/21/16 at 14:00 MALIA COLLAZO MD Jun 21, 2016 20:27
[2016-06-21] MEDS: ATORVASTATIN 10 MG TAB PO SCH (21:15)
[2016-06-22] MEDS: INSULIN ASPART [NOVOLOG] 3 ML PEN SC SCH ×3 (00:32→12:00)
[2016-06-22 06:15] LABS: ADD SCAN DIFF NO
[2016-06-22 06:38] LABS: CALCIUM 7.6 mg/dl (8.4-10.2); CREATININE 0.41 mg/dl (0.44-1.00); MAGNESIUM 1.9 mg/dl (1.7-2.5)
[2016-06-22 06:39] LABS: CHOL/HDL RATIO 1.8 RATIO; MONOCYTE # 0.7 10^3/ul (0.3-0.9); MONOCYTES % 11.3 % (0.0-11.0)
[2016-06-22 06:46] LABS: BASOPHIL # 0.1 10^3/ul (0.0-0.1); BASOPHILS % 0.8 % (0.0-2.0); EOSINOPHILS # 0.1 10^3/ul (0.0-0.5); HEMATOCRIT 34.5 % (37.0-47.0); HEMOGLOBIN 11.1 g/dl (12.0-16.0); LYMPHOCYTES # 1.5 10^3/ul (0.8-2.9); LYMPHOCYTES % 24.1 % (15.0-51.0); MEAN CORPUSCULAR HEMOGLOBIN 29.1 pg (29.0-33.0); MEAN CORPUSCULAR HGB CONC 32.2 g/dl (32.0-37.0); MEAN CORPUSCULAR VOLUME 90.6 fl (82.0-101.0); MEAN PLATELET VOLUME 10.1 fl (7.4-10.4); NEUTROPHIL # 3.9 10^3/ul (1.6-7.5); NEUTROPHILS % 62.5 % (39.0-77.0); PLATELET COUNT 220 10^3/UL (140-415); RED BLOOD COUNT 3.81 10^6/ul (4.20-5.40); RED CELL DISTRIBUTION WIDTH 12.4 % (11.5-14.5); WHITE BLOOD COUNT 6.3 10^3/ul (4.8-10.8)
[2016-06-22 07:01] LABS: POTASSIUM 2.8 mmol/L (3.5-5.1)
[2016-06-22] MEDS ORDERED: POTASSIUM CHLORIDE (SR) 20 MEQ TAB PO STA (07:20)
[2016-06-22 07:34] VITALS: BP 141/63; RESP 18
[2016-06-22] MEDS ORDERED: MAGNESIUM SULFATE 1 GM/D5W 100 ML IVPB ONE (08:00)
[2016-06-22] MEDS ORDERED: POTASSIUM PHOSPHATE 30 MM in SOD CHLORIDE 0.9% 250 ML IVPB ONE (08:30)
[2016-06-22] MEDS: IMIPENEM-CILAST 250MG IV (PMX) 100 ML IVPB SCH ×2 (09:00→20:44)
[2016-06-22] MEDS: GABAPENTIN 300 MG CAP PO SCH (09:00)
[2016-06-22] MEDS: CLOPIDOGREL 75 MG TAB PO SCH (09:00)
[2016-06-22] MEDS: POTASSIUM CHLORIDE 40 MEQ in SOD CHLORIDE 0.9% 1,000 ML IV SCH (09:05)
--- NOTE | 2016-06-22 09:45 | RADRPT ---
Echocardiogram Report Patient Name: GIOVANA PAGAN Gender: Female Date: 1935 Study Date: 21-Jun-2016 Nuclear Medicine Tech: Emily Mack [facility] Location: [id number] Ref. Physician: BENITA ZEPEDA Quality: Good Procedures: Transthoracic echocardiogram with complete 2D, M-Mode, and doppler examination. Indications: Pre-op. 2D/M Mode Doppler Measurement Value Normal Ranges Measurement Value Normal Ranges LVIDd 2D 4.6 3.5 - 5.6 cm AV Peak Claudio 1.2 m/sec LVIDs 2D 2.0 2.1 - 4.1 cm AV Peak PG 5.7 mmHg LVPWd 2D 1.0 0.6 - 1.1 cm LVOT Peak Claudio 0.8 m/sec IVSd 2D 0.9 0.6 - 1.1 cm LVOT Peak PG 2.9 mmHg AoR Diam 2D 2.7 2.0 - 3.7 cm MV E Peak Claudio 0.6 m/sec EDV 2D 99.8 cm3 MV A Peak Claudio 1.1 m/sec ESV 2D 8.5 cm3 MV E/A 0.5 LA Dimen 2D 2.6 2.3 - 4.0 cm MV Decel Time 228 msec MV Decel Bolivar 3 MV E/A 0.5 TR Peak Claudio 2.6 m/sec TR Peak PG 27.7 mmHg RVSP 31.0 mmHg Findings Left Ventricle: Normal left ventricular systolic function. Normal left ventricular cavity size. Mild concentric left ventricular hypertrophy. Ejection fraction is visually estimated at 55 %. Tissue Doppler/Mitral Doppler indices are consistent with impaired relaxation (Stage I diastolic dysfunction). Right Ventricle: Normal right ventricular size. Normal right ventricular systolic function. Left Atrium: The left atrium is normal in size. Right Atrium: The right atrium is normal in size. Mitral Valve: Normal appearance of the mitral valve. Mild mitral valve regurgitation. Aortic Valve: Normal appearance of the aortic valve. No significant aortic stenosis or insufficiency. Tricuspid Valve: Normal appearance of the tricuspid valve. Estimated peak PA systolic pressure 31 mmHg. There is trace to mild tricuspid regurgitation. Pulmonic Valve: Pulmonic valve not well visualized. Pericardium: Trivial pericardial effusion. Aorta: Normal aortic root. IVC: Normal size and normal respiratory collapse consistent with normal right atrial pressure. Conclusions Normal left ventricular systolic function. Normal left ventricular cavity size. Mild concentric left ventricular hypertrophy. Ejection fraction is visually estimated at 55 %. Tissue Doppler/Mitral Doppler indices are consistent with impaired relaxation (Stage I diastolic dysfunction). Normal appearance of the mitral valve. Mild mitral valve regurgitation. Normal appearance of the tricuspid valve. Estimated peak PA systolic pressure 31 mmHg. There is trace to mild tricuspid regurgitation. Electronically Signed By: Jayden Brannon 21-Jun-2016 19:11:53 -0700 Patient Name: GIOVANA PAGAN Study Date: 21-Jun-2016 [id number]
[2016-06-22] MEDS ORDERED: REGADENOSON 0.4 MG/5 ML SYG ONE (09:47)
--- NOTE | 2016-06-22 10:34 | CONS ---
Date/Time of Note Date/Time of Note DATE: 06/22/16 TIME: 10:29 Assessment/Plan Assessment/Plan Chief Complaint/Hosp Course IMPRESSION: 1. Preoperative evaluation prior to treatment for likely ischemic bowel.- negative troponin x 3/NL EF by echo this admit 2. History of myocardial infarction. 3. Abnormal electrocardiogram, with biphasic inferior T-wave abnormalities. 4. Hypertension, borderline. 5. Dyslipidemia. 6. Ongoing tobacco usage. 7. Ischemic bowel. 8. Poor p.o. intake secondary to ischemic bowel, with subsequent weight loss. 9. Hyponatremia. Recc: -Continue zestril -Continue statin -Continue plavix -Lexiscan stress test today with further reccs pertianing to patient's surgical candidacy to be made after completion of stress test. Problems: Consultation Date/Type/Reason Admit Date/Time Jun 20, 2016 at 15:01 Initial Consult Date 06/21/2016 Type of Consultation: Cardiology Reason for Consultation Pre-op eval Referring Provider: NITIN ZEPEDA Exam/Review of Systems Vital Signs Vitals Vital Signs Date Time Temp Pulse Resp B/P Pulse Ox O2 Delivery O2 Flow Rate FiO2 06/22/16 07:34 97.7 72 18 141/63 93 06/19/16 22:30 Room Air Intake and Output 06/21/16 06/21/16 06/22/16 15:00 23:00 07:00 Intake Total 880 ml 1040 ml Output Total 650 ml 920 ml Balance 230 ml 120 ml Exam Review of Systems: CONSTITUTIONAL: No fevers, chills. PULMONARY: No sob CARDIOVASCULAR: No chest pain/palpitations GASTROINTESTINAL: Mild abd pain GENITOURINARY: No hematuria/dysuria. MUSCULOSKELETAL: No myagias/arthalgias. PSYCHIATRIC: The patient denies depression. NEUROLOGIC: No weakness Constitutional: alert, oriented Psych: no complaints Head: normocephalic ENMT: mucosa pink and moist Neck: jvd (9 cm water), supple Respiratory: clear to auscultation Cardiovascular: regular rate and rhythm Gastrointestinal: non-tender, soft Results Result Diagram: 06/22/16 0516 06/22/16 0516 Results 24 hrs Laboratory Tests Test 06/21/16 11:59 06/21/16 17:59 06/21/16 18:25 06/22/16 00:28 Bedside Glucose 164 162 180 Creatine Kinase 50 Creatine Kinase Index 9.8 Creatinine Kinase MB (Mass) 4.91 H Troponin I 0.025 Test 06/22/16 05:16 06/22/16 06:01 White Blood Count 6.3 # Red Blood Count 3.81 L Hemoglobin 11.1 L Hematocrit 34.5 L Mean Corpuscular Volume 90.6 Mean Corpuscular Hemoglobin 29.1 Mean Corpuscular Hemoglobin Concent 32.2 Red Cell Distribution Width 12.4 Platelet Count 220 Mean Platelet Volume 10.1 Neutrophils % 62.5 Lymphocytes % 24.1 Monocytes % 11.3 H Eosinophils % 1.0 Basophils % 0.8 Nucleated Red Blood Cells % 0.0 Neutrophils # 3.9 Lymphocytes # 1.5 Monocytes # 0.7 Eosinophils # 0.1 Basophils # 0.1 Nucleated Red Blood Cells # 0.0 Sodium Level 137 Potassium Level 2.8 *L Chloride Level 110 Carbon Dioxide Level 26 Anion Gap 4 L Blood Urea Nitrogen 5 L Creatinine 0.41 L Glucose Level 140 Calcium Level 7.6 L Phosphorus Level 2.0 L Magnesium Level 1.9 Triglycerides Level 77 Cholesterol Level 72 L LDL Cholesterol, Calculated 19 HDL Cholesterol 38 Cholesterol/HDL Ratio 1.8 Bedside Glucose 147 Medications Medications Current Medications Acetaminophen (Tylenol Tab) 650 mg Q4H PRN PO PAIN AND OR ELEVATED TEMP; Start 06/20/16 at 02:00 Morphine Sulfate (morphine) 4 mg Q4H PRN IV pain Last administered on 21:59; Admin Dose 4 MG; Start 06/20/16 at 02:00 Ondansetron HCl (Zofran Inj) 4 mg Q4H PRN IV NAUSEA AND/OR VOMITING; Start 02/24 at 02:00 Hydralazine HCl (Apresoline) 25 mg Q6 PRN PO sbp>160; Start 06/20/16 at 02:00 Clopidogrel Bisulfate (plaVIX) 75 mg DAILY PO Last administered on 06/21/16 08 :53; Admin Dose 75 MG; Start 06/20/16 at 09:00 Gabapentin (Neurontin) 300 mg DAILY PO Last administered on 06/21/16 08:53; Admin Dose 300 MG; Start 06/20/16 at 09:00 Lisinopril (Zestril) 40 mg DAILY PRN PO ELEVATED BLOOD PRESSURE; Start at 02:00 Atorvastatin Calcium 10 mg 10 mg DAILY@21 PO Last administered on 06/21/16 21: 15; Admin Dose 10 MG; Start 06/20/16 at 21:00 Imipenem/ Cilastatin Sodium (Primaxin 250 Mg/ 100 ml (Pmx)) 100 ml @ 100 mls/ hr Q12 IVPB Last administered on 06/21/16 21:15; Admin Dose 100 MLS/HR; Start 06/20/16 at 14:30 Nicotine (Nicoderm 21 Mg/ 24hr) 1 patch DAILY TRANSDERM Last administered on 09:11; Admin Dose 1 PATCH; Start 06/20/16 at 13:30 Insulin Aspart (Novolog Insulin Pen) NOVOLOG *MILD* ALGORI... Q6 SC Last administered on 06/22/16 06:05; Admin Dose 1 UNIT; Start 06/20/16 at 14:30 Miscellaneous Information 1 ea NOTE XX ; Start 06/20/16 at 14:00 Glucose (Glutose) 15 gm Q15M PRN PO DECREASED GLUCOSE; Start 06/20/16 at 14:00 Glucose (Glutose) 22.5 gm Q15M PRN PO DECREASED GLUCOSE; Start 06/20/16 at 14: 00 Dextrose (D50w Syringe) 25 ml Q15M PRN IV DECREASED GLUCOSE Last administered on 06/20/16 19:19; Admin Dose 25 ML; Start 06/20/16 at 14:00 Dextrose (D50w Syringe) 50 ml Q15M PRN IV DECREASED GLUCOSE; Start 06/20/16 at 14:00 Glucagon (Glucagen) 1 mg Q15M PRN IM DECREASED GLUCOSE; Start 06/20/16 at 14:00 Glucose (Glutose) 15 gm Q15M PRN BUCCAL DECREASED GLUCOSE; Start 06/20/16 at 14 :00 Enoxaparin Sodium 40 mg 40 mg Q24H SC Last administered on 06/21/16 14:53; Admin Dose 40 MG; Start 06/21/16 at 14:00 Potassium Chloride 40 meq/ Sodium Chloride 1,020 ml @ 100 mls/hr [id number] IV Last administered on 06/22/16 09:05; Admin Dose 100 MLS/HR; Start 06/22/16 at 09:00 Potassium Phosphate/Sodium Chloride (K Phos (Mm)/NS) 260 ml @ 65 mls/hr ONCE ONCE IVPB Last administered on 06/22/16t 09:06; Admin Dose 65 MLS/HR; Start at 08:30; Stop 06/22/16 at 12:29 BALDO VASQUES Jun 22, 2016 10:33
--- NOTE | 2016-06-22 10:52 | CARRPT ---
DATE OF PROCEDURE: 06/22/2016 PROCEDURE PERFORMED: Lexiscan Cardiolite stress test, electrocardiogram portion. REASON FOR STRESS TESTING: Preoperative with abnormal electrocardiographic findings. REQUESTING PHYSICIAN: Dr. Zepeda from the hospitalist service and Dr. James, vascular surgery ser vice. Baseline vital signs of electrocardiogram: Pulse 84, blood pressure 119/82. Electrocardiogram was normal sinus rhythm at a rate of 84, normal axis, normal intervals, with inferolateral biphasic T-wa ve abnormalities. PROCEDURE: The patient underwent standard Lexiscan infusion protocol over 10 seconds followed by ra diolabeled tracer. The patient's test was stopped due to completion of protocol. Maximal achieved blood pressure during the test 169/83. Maximal achieved heart rate during the test 148. ECG FINDINGS: During Lexiscan infusion with tachycardia, the patient developed inferior ST depressi ons in lateral which returned to normal during recovery. SYMPTOMS: The patient had complaints of chest pain during stress test that resolved during recovery . IMPRESSION: 1. Lexiscan induced ST and T-wave changes from baseline abnormalities that are suggestive but nondi agnostic for cardiac ischemia due to baseline abnormalities for cardiac ischemia. 2. Complaints of chest pain during stress test that resolved during recovery. 3. No documented premature ventricular contractions during stress testing. 4. Report of nuclear images to follow in separate dictation. Dictated By: BALDO MCARTHUR/MARIBELL Conf#: [id number] DID#: [id number] CC: NITIN ZEPEDA MD; MALIA JAMES MD;*EndCC*
--- NOTE | 2016-06-22 12:28 | RADRPT ---
PROCEDURE: Lexiscan myocardial perfusion study CLINICAL INDICATION: 80 -year-old patient complaining of chest pain. TECHNIQUE: Lexiscan 0.4 mg intravenously separate acquisition gated myocardial perfusion SPECT usi ng Tc 99m Myoview 27.7 mCi intravenously at stress and Tc-99m Myoview, 9.3 mCi intravenously at rest was performed using the rest/stress sequence. Poststress Myoview SPECT images were obtained in the supine position. COMPARISON: No prior studies. FINDINGS: Perfusion images reveal no evidence of perfusion defects. Lexiscan post stress gated SPECT images demonstrate no wall motion abnormalities. IMPRESSION: 1. No evidence of perfusion defects. 2. No wall motion abnormalities. 3. The left ventricle ejection fraction at stress is 56%. A call report was made to the bobcat driver/labor at 12:20 p.m. on June 22, 2016. RPTAT: HH .Anjelica Bell MD, Date Time Electronically viewed and signed by .Anjelica Bell MD, on 06/22/2016 12:28 .L/
[2016-06-22] MEDS ORDERED: LIDOCAINE 1% (MDV) 20 ML INJ ONE (13:25)
[2016-06-22] MEDS ORDERED: ENOXAPARIN 40 MG/0.4 ML SYG SC SCH (13:30)
[2016-06-22] MEDS ORDERED: HEPARIN 1000 UNITS/ML 10 ML INJ ONE (14:37)
[2016-06-22] MEDS ORDERED: IODIXANOL LOCM 50 ML BTL ONE (14:37)
[2016-06-22] MEDS ORDERED: IODIXANOL LOCM 100 ML BTL ONE (14:37)
[2016-06-22 15:51] VITALS: BP 144/66; RESP 19
[2016-06-22] MEDS: ENOXAPARIN 40 MG/0.4 ML SYG SC SCH (15:57)
--- NOTE | 2016-06-22 16:20 | PN ---
Date/Time of Note Date/Time of Note DATE: 06/22/16 TIME: 16:12 Assessment/Plan VTE Prophylaxis VTE Prophylaxis Intervention: LMWH Lines/Catheters IV C[facility]ter Type [facility]from [facility] Urinary Cath still in place: No Assessment/Plan Assessment/Plan 80 yo female with: 1. 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 CT abdo/pelvis here with suspected high-grade stenosis of the SMA. Appreciate Cardiology eval from Dr Brannon, stress test negative this AM Dr. James has attempted stenting today but too much calcification through femoral, so will have to try with different access Patient back on anticoagulation, IVF and diet resumed. 2. Leukocytosis, almost certainly related to gastrointestinal complaint and possible ischemic colitis/mesenteric ischemia. Resolved. On Imipenem 3. Peripheral vascular disease. Continue secondary prevention. 4. Chronic obstructive pulmonary disease, with known tobacco use. Respiratory status stable so far. Nebs prn. 5. Tobacco abuse, cessation is counseled. Nicotine patch 6. Hypokalemia: repleting, also Kphos and Mag given Prophylaxis: Lovenox treatment dose and PPI with GI ppx. Disposition: Vascular Surgery re eval and 2nd attempt at mesenteric angio pending early next week? Subjective 24 Hr Interval Summary Free Text/Dictation Patient doing Ok post attemped mesenteric stenting Exam/Review of Systems Vital Signs Vitals Vital Signs Date Time Temp Pulse Resp B/P Pulse Ox O2 Delivery O2 Flow Rate FiO2 06/22/16 15:51 97.7 75 19 144/66 99 06/19/16 22:30 Room Air Intake and Output 06/21/16 06/21/16 06/22/16 15:00 23:00 07:00 Intake Total 880 ml 1040 ml Output Total 650 ml 920 ml Balance 230 ml 120 ml Exam Constitutional: alert, frail, oriented, other (thin, elderly) Respiratory: clear to auscultation, normal air movement Cardiovascular: nl pulses, regular rate and rhythm Gastrointestinal: non-tender, soft Musculoskeletal: nl extremities to inspection, other (no edema, clubbing or cyanosis ) Extremities: normal pulses Neurological: LINE MOVER II-XII intact, nl mental status, nl speech, nl strength Results Result Diagram: 06/22/16 0516 06/22/16 0516 Results 24 hrs Laboratory Tests Test 06/21/16 17:59 06/21/16 18:25 06/22/16 00:28 06/22/16 05:16 Bedside Glucose 162 180 Creatine Kinase 50 Creatine Kinase Index 9.8 Creatinine Kinase MB (Mass) 4.91 H Troponin I 0.025 White Blood Count 6.3 # Red Blood Count 3.81 L Hemoglobin 11.1 L Hematocrit 34.5 L Mean Corpuscular Volume 90.6 Mean Corpuscular Hemoglobin 29.1 Mean Corpuscular Hemoglobin Concent 32.2 Red Cell Distribution Width 12.4 Platelet Count 220 Mean Platelet Volume 10.1 Neutrophils % 62.5 Lymphocytes % 24.1 Monocytes % 11.3 H Eosinophils % 1.0 Basophils % 0.8 Nucleated Red Blood Cells % 0.0 Neutrophils # 3.9 Lymphocytes # 1.5 Monocytes # 0.7 Eosinophils # 0.1 Basophils # 0.1 Nucleated Red Blood Cells # 0.0 Sodium Level 137 Potassium Level 2.8 *L Chloride Level 110 Carbon Dioxide Level 26 Anion Gap 4 L Blood Urea Nitrogen 5 L Creatinine 0.41 L Glucose Level 140 Calcium Level 7.6 L Phosphorus Level 2.0 L Magnesium Level 1.9 Triglycerides Level 77 Cholesterol Level 72 L LDL Cholesterol, Calculated 19 HDL Cholesterol 38 Cholesterol/HDL Ratio 1.8 Test 06/22/16 06:01 06/22/16 12:02 Bedside Glucose 147 133 Medications Medications Current Medications Acetaminophen (Tylenol Tab) 650 mg Q4H PRN PO PAIN AND OR ELEVATED TEMP; Start 06/20/16 at 02:00 Morphine Sulfate (morphine) 4 mg Q4H PRN IV pain Last administered on 21:59; Admin Dose 4 MG; Start 06/20/16 at 02:00 Ondansetron HCl (Zofran Inj) 4 mg Q4H PRN IV NAUSEA AND/OR VOMITING; Start 02/24 at 02:00 Hydralazine HCl (Apresoline) 25 mg Q6 PRN PO sbp>160; Start 06/20/16 at 02:00 Clopidogrel Bisulfate (plaVIX) 75 mg DAILY PO Last administered on 06/21/16 08 :53; Admin Dose 75 MG; Start 06/20/16 at 09:00 Gabapentin (Neurontin) 300 mg DAILY PO Last administered on 06/21/16 08:53; Admin Dose 300 MG; Start 06/20/16 at 09:00 Lisinopril (Zestril) 40 mg DAILY PRN PO ELEVATED BLOOD PRESSURE; Start at 02:00 Atorvastatin Calcium 10 mg 10 mg DAILY@21 PO Last administered on 06/21/16 21: 15; Admin Dose 10 MG; Start 06/20/16 at 21:00 Imipenem/ Cilastatin Sodium (Primaxin 250 Mg/ 100 ml (Pmx)) 100 ml @ 100 mls/ hr Q12 IVPB Last administered on 06/21/16 21:15; Admin Dose 100 MLS/HR; Start 06/20/16 at 14:30 Nicotine (Nicoderm 21 Mg/ 24hr) 1 patch DAILY TRANSDERM Last administered on 09:11; Admin Dose 1 PATCH; Start 06/20/16 at 13:30 Miscellaneous Information 1 ea NOTE XX ; Start 06/20/16 at 14:00 Glucose (Glutose) 15 gm Q15M PRN PO DECREASED GLUCOSE; Start 06/20/16 at 14:00 Glucose (Glutose) 22.5 gm Q15M PRN PO DECREASED GLUCOSE; Start 06/20/16 at 14: 00 Dextrose (D50w Syringe) 25 ml Q15M PRN IV DECREASED GLUCOSE Last administered on 06/20/16 19:19; Admin Dose 25 ML; Start 06/20/16 at 14:00 Dextrose (D50w Syringe) 50 ml Q15M PRN IV DECREASED GLUCOSE; Start 06/20/16 at 14:00 Glucagon (Glucagen) 1 mg Q15M PRN IM DECREASED GLUCOSE; Start 06/20/16 at 14:00 Glucose (Glutose) 15 gm Q15M PRN BUCCAL DECREASED GLUCOSE; Start 06/20/16 at 14 :00 Enoxaparin Sodium 40 mg 40 mg Q24H SC Last administered on 06/21/16 14:53; Admin Dose 40 MG; Start 06/21/16 at 14:00 Potassium Chloride/Sodium Chloride (KCl/NS) 1,020 ml @ 100 mls/hr [id number] IV Last administered on 06/22/16 09:05; Admin Dose 100 MLS/HR; Start 06/22/16 at 09:00 Diagnostic Test (Pha) (Accu-Chek) 1 ea 02 XX ; Start 06/22/16 at 16:00 NITIN ZEPEDA Jun 22, 2016 16:20
[2016-06-22] MEDS: NICOTINE (21 MG/24 HR) PATCH TRANSDERM SCH (17:39)
[2016-06-22] MEDS ORDERED: INSULIN ASPART [NOVOLOG] 3 ML PEN SC SCH (17:45)
[2016-06-22 19:50] VITALS: BP 173/81; RESP 20
--- NOTE | 2016-06-22 20:21 | OPR ---
Date/Time of Note Date/Time of Note DATE: 06/22/16 TIME: 20:20 Operative Report Preoperative Diagnosis SMA Stenosis Postoperative Diagnosis same Operation Performed Aortogram Surgeon: MALIA COLLAZO MD Gasfitter: URIAH LANDEROS MD Anesthesia: other Estimated Blood Loss: minimal Complications: None Pt Condition Post Procedure: stable MALIA COLLAZO MD Jun 22, 2016 20:21
[2016-06-22 20:44] LABS: POTASSIUM 3.4 mmol/L (3.5-5.1)
[2016-06-22] MEDS: morphine 4 MG/ML VIAL IV PRN (20:44)
[2016-06-22] MEDS: ATORVASTATIN 10 MG TAB PO SCH (20:45)
[2016-06-22] MEDS: Insulin NOVOLOG SS MILD Algorithm (SS with meals and bedtime) SC SCH ×2 (20:45→21:00)
[2016-06-22 20:46] LABS: CREATININE 0.43 mg/dl (0.44-1.00)
[2016-06-22 20:47] LABS: CALCIUM 8.4 mg/dl (8.4-10.2)
--- NOTE | 2016-06-22 20:57 | RADRPT ---
Vent Rate: 62 bpm RR Interval: 0 msec DC Interval: 124 msec QRS Duration: 98 msec QT Interval: 450 msec QTC Interval: 456 msec P-R-T [place]: 0 - 85 - -28 degrees Normal sinus rhythm Abnormal QRS-T angle, consider primary T wave abnormality Abnormal ECG Electronically Signed By: Curits Lamar [id number]
--- NOTE | 2016-06-22 20:59 | OPR ---
DATE OF OPERATION: PREOPERATIVE DIAGNOSIS: Ischemic bowel. POSTOPERATIVE DIAGNOSIS: Ischemic bowel. OPERATION PERFORMED: 1. Abdominal aortogram. 2. Mesenteric angiogram. 3. Ultrasound guidance into the central artery. 4. Catheter introduction into the abdominal aorta. 5. Interpretation and supervision of the angiogram. 6. Closure of the femoral artery using Angio-Seal. SURGEON: Malia James MD PROFESSIONAL MODEL: Sergio Martino MD CONSENT: Risks, benefits, complications, and alternative therapies explained to the patient and the family, consent obtained. OPERATIVE TECHNIQUE: The patient was placed in supine position, prepped and draped in usual sterile fashion, and 1% lidocaine was used throughout the operation for local anesthesia. Under ultrasonic guidance, access was gained in the right common femoral artery. Guidewire was advanced through wit hout any difficulty. Subcutaneous tissues dilated, and a 5-[place] sheath advanced over guidewire, a nd a Publicate guidewire was advanced all the way up to the abdominal aorta. At this time, a pigtail catheter was advanced into the abdominal aorta and aortogram was done. 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 Guidewire was advanced through the superior mesenteric artery; however, because of a very acute orig in of the superior mesenteric artery, we were not able to advance any other catheters over the guide wire, also because of severe calcifications. Multiple attempts were made with different wires and c atheters to advance the catheter or a balloon angioplasty catheter into the stenotic area of the SMA . However, again because of the very acute nature of the SMA, we were unsuccessful. All hardware w as removed. The catheter site was closed using Angio-Seal. This patient will be arrested and creat inine levels will be checked and attempts will be made again in cannulating the superior mesenteric artery through the arm blood vessels, which could be more of a straight shot. Discussed with the shyam marie. Dictated By: MALAI JAMES MD FM/NTS Conf#: [id number] DID#: [id number]
--- NOTE | 2016-06-22 21:01 | RADRPT ---
Vent Rate: 74 bpm RR Interval: 0 msec PA Interval: 160 msec QRS Duration: 102 msec QT Interval: 420 msec QTC Interval: 466 msec P-R-T [place]: 81 - 82 - 65 degrees Normal sinus rhythm Normal ECG Electronically Signed By: Curtis Lamar [id number]
[2016-06-23] MEDS: ACCUCHECK 2 AM XX SCH (02:00)
[2016-06-23] MEDS: POTASSIUM CHLORIDE 40 MEQ in SOD CHLORIDE 0.9% 1,000 ML IV SCH ×3 (03:27→16:45)
[2016-06-23 06:15] LABS: ADD SCAN DIFF NO
[2016-06-23 06:24] LABS: BASOPHILS % 0.3 % (0.0-2.0); HEMOGLOBIN 13.8 g/dl (12.0-16.0); LYMPHOCYTES # 0.7 10^3/ul (0.8-2.9); LYMPHOCYTES % 5.9 % (15.0-51.0); MEAN CORPUSCULAR HEMOGLOBIN 30.5 pg (29.0-33.0); MEAN CORPUSCULAR HGB CONC 34.5 g/dl (32.0-37.0); MEAN CORPUSCULAR VOLUME 88.3 fl (82.0-101.0); MONOCYTE # 0.9 10^3/ul (0.3-0.9); MONOCYTES % 7.7 % (0.0-11.0); NEUTROPHIL # 9.7 10^3/ul (1.6-7.5); NEUTROPHILS % 85.7 % (39.0-77.0); PLATELET COUNT 313 10^3/UL (140-415); RED BLOOD COUNT 4.53 10^6/ul (4.20-5.40); RED CELL DISTRIBUTION WIDTH 12.4 % (11.5-14.5); WHITE BLOOD COUNT 11.3 10^3/ul (4.8-10.8)
[2016-06-23 06:35] LABS: ALBUMIN 3.1 g/dl (3.3-4.9); ALBUMIN/GLOBULIN RATIO 1.14; BILIRUBIN,INDIRECT 0.2 mg/dl (0-1.1); BILIRUBIN,TOTAL 0.2 mg/dl (0.2-1.3); CALCIUM 8.5 mg/dl (8.4-10.2); CREATININE 0.43 mg/dl (0.44-1.00); POTASSIUM 3.8 mmol/L (3.5-5.1); TOTAL PROTEIN 5.8 g/dl (6.1-8.1)
[2016-06-23 07:27] LABS: MAGNESIUM 1.8 mg/dl (1.7-2.5); PHOSPHORUS 2.8 mg/dl (2.5-4.9)
[2016-06-23 07:33] VITALS: BP 156/87; RESP 18
[2016-06-23] MEDS: Insulin NOVOLOG SS MILD Algorithm (SS with meals and bedtime) SC SCH ×2 (08:41→12:08)
[2016-06-23] MEDS: NICOTINE (21 MG/24 HR) PATCH TRANSDERM SCH (08:45)
[2016-06-23] MEDS: ONDANSETRON 4 MG INJ IV PRN (08:45)
[2016-06-23] MEDS: GABAPENTIN 300 MG CAP PO SCH (08:45)
[2016-06-23] MEDS: IMIPENEM-CILAST 250MG IV (PMX) 100 ML IVPB SCH ×2 (08:45→20:06)
[2016-06-23] MEDS: CLOPIDOGREL 75 MG TAB PO SCH (08:45)
--- NOTE | 2016-06-23 13:31 | PN ---
Date/Time of Note Date/Time of Note DATE: 06/23/16 TIME: 13:30 Assessment/Plan Lines/Catheters IV Catheter Type (from Nrs): Peripheral IV Hansen in Place (from Nrs): No Assessment/Plan Chief Complaint/Hosp Course RECOMMENDATIONS: The patient will need an angiogram, possible angioplasty. However, she is at high risk of dissection secondary to high calcification. RECOMMENDATIONS: SMA Stenosis Plan for SMA Angioplasty and stent placement in the OR on Saturday . Discussed with the patient. Problems: Subjective 24 Hr Interval Summary Constitutional: improved Pain Control: mild Exam/Review of Systems Vital Signs Vitals Vital Signs Date Time Temp Pulse Resp B/P Pulse Ox O2 Delivery O2 Flow Rate FiO2 06/23/16 07:33 98.2 100 18 156/87 96 06/19/16 22:30 Room Air Intake and Output 06/22/16 06/22/16 06/23/16 14:59 22:59 06:59 Intake Total 260 ml 475 ml 1100 ml Output Total 200 ml 700 ml Balance 260 ml 275 ml 400 ml Exam ENMT: mucosa pink and moist, nl external ears & nose, nl lips & teeth, nl nasal mucosa & septum Neck: non-tender, supple Respiratory: clear to auscultation, normal air movement Cardiovascular: nl pulses, regular rate and rhythm Results Result Diagram: 06/23/16 0539 06/23/16 0539 MALIA COLLAZO MD Jun 23, 2016 13:31
[2016-06-23] MEDS: ENOXAPARIN 40 MG/0.4 ML SYG SC SCH (14:00)
--- NOTE | 2016-06-23 14:27 | PN ---
Date/Time of Note Date/Time of Note DATE: 06/23/16 TIME: 14:22 Assessment/Plan VTE Prophylaxis VTE Prophylaxis Intervention: other (Plavix, per Dr. Lamar) Lines/Catheters IV C[facility] Type (from [facility] Peripheral IV Urinary Cath still in place: No Assessment/Plan Assessment/Plan [facility] 1. 80 yo woman who presented two days ago with abdominal pain, nausea, vomiting , weight loss, likely all related to superior mesenteric artery stenosis and concerns for mesenteric ischemia now. CT abd/pelvis showed suspected high-grade stenosis of the SMA. First attempt at stenting yesterday was not successful. Cardiac stress test showed no ischemia. * Renew diet * Dr. Lamar suggested holding Lovenox, given patient is on Plavix * Attempt in two days to complete procedure. 2. Leukocytosis,possibly secondary to ischemic colitis/mesenteric ischemia. Resolved now. * Continue Imipenem 3. Peripheral vascular disease. * Continue secondary prevention. 4. Chronic obstructive pulmonary disease, with known tobacco use. Respiratory status stable so far. * Nebulizers PRN 5. Tobacco use, cessation is counseled. * Nicotine patch 6. Hypokalemia * Repleting potassium, Kphos and Magnesium 7. Prophylaxis: PPI with GI ppx. 8. Disposition: Vascular Surgery re eval and 2nd attempt at mesenteric angio pending early next week Fabiana Chao MD PhD [phone] Subjective 24 Hr Interval Summary Free Text/Dictation Concerned about a possible fall this morning while getting up to the washroom, but didn't hit her head. No focal pain now, apart from her usual back pain. Eating well, and mostly keeping up with her fluids. Exam/Review of Systems Vital Signs Vitals Vital Signs Date Time Temp Pulse Resp B/P Pulse Ox O2 Delivery O2 Flow Rate FiO2 06/23/16 07:33 98.2 100 18 156/87 96 06/19/16 22:30 Room Air Intake and Output 06/22/16 06/22/16 06/23/16 15:00 23:00 07:00 Intake Total 260 ml 475 ml 1100 ml Output Total 200 ml 700 ml Balance 260 ml 275 ml 400 ml Exam Constitutional: Alert, conversant, frail, comfortable-appearing in bed. Respiratory: clear to auscultation, normal air movement Cardiovascular: Symmetric pulses, regular rhythm, normal rate Gastrointestinal: non-tender, soft, bowel sounds normal. Musculoskeletal: No edema, clubbing or cyanosis. 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 Results Result Diagram: 06/23/16 0539 06/23/16 0539 Results 24 hrs Laboratory Tests Test 06/22/16 17:35 06/22/16 20:10 06/22/16 20:41 06/23/16 05:39 Bedside Glucose 193 122 Sodium Level 139 134 L Potassium Level 3.4 L 3.8 Chloride Level 106 105 Carbon Dioxide Level 25 26 Anion Gap 11 # 7 L Blood Urea Nitrogen 4 L 3 L Creatinine 0.43 L 0.43 L Glucose Level 152 167 Calcium Level 8.4 8.5 White Blood Count 11.3 #H Red Blood Count 4.53 Hemoglobin 13.8 # Hematocrit 40.0 Mean Corpuscular Volume 88.3 Mean Corpuscular Hemoglobin 30.5 Mean Corpuscular Hemoglobin Concent 34.5 Red Cell Distribution Width 12.4 Platelet Count 313 # Mean Platelet Volume 10.0 Neutrophils % 85.7 H Lymphocytes % 5.9 L Monocytes % 7.7 Eosinophils % 0.0 Basophils % 0.3 Nucleated Red Blood Cells % 0.0 Neutrophils # 9.7 H Lymphocytes # 0.7 L Monocytes # 0.9 Eosinophils # 0.0 Basophils # 0.0 Nucleated Red Blood Cells # 0.0 Phosphorus Level 2.8 Magnesium Level 1.8 Total Bilirubin 0.2 Direct Bilirubin 0.00 Indirect Bilirubin 0.2 Aspartate Amino Transf (AST/SGOT) 18 Alanine Aminotransferase (ALT/SGPT) 27 Alkaline Phosphatase 90 Total Protein 5.8 L Albumin 3.1 L Globulin 2.70 Albumin/Globulin Ratio 1.14 Test 06/23/16 07:47 06/23/16 11:56 Bedside Glucose 167 200 Medications Medications Current Medications Acetaminophen (Tylenol Tab) 650 mg Q4H PRN PO PAIN AND OR ELEVATED TEMP; Start 06/20/16 at 02:00 Morphine Sulfate (morphine) 4 mg Q4H PRN IV pain Last administered on 20:44; Admin Dose 4 MG; Start 06/20/16 at 02:00 Ondansetron HCl (Zofran Inj) 4 mg Q4H PRN IV NAUSEA AND/OR VOMITING Last administered on 06/23/16 08:45; Admin Dose 4 MG; Start 06/20/16 at 02:00 Hydralazine HCl (Apresoline) 25 mg Q6 PRN PO sbp>160; Start 06/20/16 at 02:00 Clopidogrel Bisulfate (plaVIX) 75 mg DAILY PO Last administered on 06/23/16 08 :45; Admin Dose 75 MG; Start 06/20/16 at 09:00 Gabapentin (Neurontin) 300 mg DAILY PO Last administered on 06/23/16 08:45; Admin Dose 300 MG; Start 06/20/16 at 09:00 Lisinopril (Zestril) 40 mg DAILY PRN PO ELEVATED BLOOD PRESSURE; Start at 02:00 Atorvastatin Calcium 10 mg 10 mg DAILY@21 PO Last administered on 06/22/16 20: 45; Admin Dose 10 MG; Start 06/20/16 at 21:00 Imipenem/ Cilastatin Sodium (Primaxin 250 Mg/ 100 ml (Pmx)) 100 ml @ 100 mls/ hr Q12 IVPB Last administered on 06/23/16 08:45; Admin Dose 100 MLS/HR; Start 06/20/16 at 14:30 Nicotine (Nicoderm 21 Mg/ 24hr) 1 patch DAILY TRANSDERM Last administered on 08:45; Admin Dose 1 PATCH; Start 06/20/16 at 13:30 Miscellaneous Information 1 ea NOTE XX ; Start 06/20/16 at 14:00 Glucose (Glutose) 15 gm Q15M PRN PO DECREASED GLUCOSE; Start 06/20/16 at 14:00 Glucose (Glutose) 22.5 gm Q15M PRN PO DECREASED GLUCOSE; Start 06/20/16 at 14: 00 Dextrose (D50w Syringe) 25 ml Q15M PRN IV DECREASED GLUCOSE Last administered on 06/20/16 19:19; Admin Dose 25 ML; Start 06/20/16 at 14:00 Dextrose (D50w Syringe) 50 ml Q15M PRN IV DECREASED GLUCOSE; Start 06/20/16 at 14:00 Glucagon (Glucagen) 1 mg Q15M PRN IM DECREASED GLUCOSE; Start 06/20/16 at 14:00 Glucose (Glutose) 15 gm Q15M PRN BUCCAL DECREASED GLUCOSE; Start 06/20/16 at 14 :00 Enoxaparin Sodium 40 mg 40 mg Q24H SC Last administered on 06/21/16 14:53; Admin Dose 40 MG; Start 06/21/16 at 14:00 Potassium Chloride/Sodium Chloride (KCl/NS) 1,020 ml @ 100 mls/hr [id number] IV Last administered on 06/23/16 03:27; Admin Dose 100 MLS/HR; Start 06/22/16 at 09:00 Diagnostic Test (Pha) (Accu-Chek) 1 ea 02 XX ; Start 06/22/16 at 16:00 KELLY CHAO M.D. Jun 23, 2016 14:27
--- NOTE | 2016-06-23 15:20 | CONS ---
Date/Time of Note Date/Time of Note DATE: 06/23/16 TIME: 14:51 Assessment/Plan Assessment/Plan Additional Assessment/Plan 1. 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 S/P myocardial infarction. 3. Abnormal electrocardiogram 4. Hypertension 5. Dyslipidemia. 6. Tobacco Abuse. Hypertensive Stress test shows no reversible ischemia She is scheduled for SMA angioplasty on Saturday Continue Plavix Continue Lipitor Continue Antibiotics Started on Lisinopril Continue Nicotine patch Consultation Date/Type/Reason Admit Date/Time Jun 20, 2016 at 15:01 Gastrointestinal: no complaints Genitourinary: no complaints Musculoskeletal: no complaints Skin: no complaints Psychological: no complaints Social History Smoking Status: Current every day smoker Exam/Review of Systems Vital Signs Vitals Vital Signs Date Time Temp Pulse Resp B/P Pulse Ox O2 Delivery O2 Flow Rate FiO2 06/23/16 07:33 98.2 100 18 156/87 96 06/19/16 22:30 Room Air Intake and Output 06/22/16 06/22/16 06/23/16 14:59 22:59 06:59 Intake Total 260 ml 475 ml 1100 ml Output Total 200 ml 700 ml Balance 260 ml 275 ml 400 ml Exam Head: atraumatic, normocephalic Neck: non-tender, supple Respiratory: diminished breath sounds Cardiovascular: regular rate and rhythm Gastrointestinal: nl liver, spleen, non-tender, soft Extremities: normal pulses Results Result Diagram: 06/23/16 0539 06/23/16 0539 Results 24 hrs Laboratory Tests Test 06/22/16 17:35 06/22/16 20:10 06/22/16 20:41 06/23/16 05:39 Bedside Glucose 193 122 Sodium Level 139 134 L Potassium Level 3.4 L 3.8 Chloride Level 106 105 Carbon Dioxide Level 25 26 Anion Gap 11 # 7 L Blood Urea Nitrogen 4 L 3 L Creatinine 0.43 L 0.43 L Glucose Level 152 167 Calcium Level 8.4 8.5 White Blood Count 11.3 #H Red Blood Count 4.53 Hemoglobin 13.8 # Hematocrit 40.0 Mean Corpuscular Volume 88.3 Mean Corpuscular Hemoglobin 30.5 Mean Corpuscular Hemoglobin Concent 34.5 Red Cell Distribution Width 12.4 Platelet Count 313 # Mean Platelet Volume 10.0 Neutrophils % 85.7 H Lymphocytes % 5.9 L Monocytes % 7.7 Eosinophils % 0.0 Basophils % 0.3 Nucleated Red Blood Cells % 0.0 Neutrophils # 9.7 H Lymphocytes # 0.7 L Monocytes # 0.9 Eosinophils # 0.0 Basophils # 0.0 Nucleated Red Blood Cells # 0.0 Phosphorus Level 2.8 Magnesium Level 1.8 Total Bilirubin 0.2 Direct Bilirubin 0.00 Indirect Bilirubin 0.2 Aspartate Amino Transf (AST/SGOT) 18 Alanine Aminotransferase (ALT/SGPT) 27 Alkaline Phosphatase 90 Total Protein 5.8 L Albumin 3.1 L Globulin 2.70 Albumin/Globulin Ratio 1.14 Test 06/23/16 07:47 06/23/16 11:56 Bedside Glucose 167 200 Medications Medications Current Medications Acetaminophen (Tylenol Tab) 650 mg Q4H PRN PO PAIN AND OR ELEVATED TEMP; Start 06/20/16 at 02:00 Morphine Sulfate (morphine) 4 mg Q4H PRN IV pain Last administered on 20:44; Admin Dose 4 MG; Start 06/20/16 at 02:00 Ondansetron HCl (Zofran Inj) 4 mg Q4H PRN IV NAUSEA AND/OR VOMITING Last administered on 06/23/16 08:45; Admin Dose 4 MG; Start 06/20/16 at 02:00 Hydralazine HCl (Apresoline) 25 mg Q6 PRN PO sbp>160; Start 06/20/16 at 02:00 Clopidogrel Bisulfate (plaVIX) 75 mg DAILY PO Last administered on 06/23/16 08 :45; Admin Dose 75 MG; Start 06/20/16 at 09:00 Gabapentin (Neurontin) 300 mg DAILY PO Last administered on 06/23/16 08:45; Admin Dose 300 MG; Start 06/20/16 at 09:00 Lisinopril (Zestril) 40 mg DAILY PRN PO ELEVATED BLOOD PRESSURE; Start at 02:00 Atorvastatin Calcium 10 mg 10 mg DAILY@21 PO Last administered on 06/22/16 20: 45; Admin Dose 10 MG; Start 06/20/16 at 21:00 Imipenem/ Cilastatin Sodium (Primaxin 250 Mg/ 100 ml (Pmx)) 100 ml @ 100 mls/ hr Q12 IVPB Last administered on 06/23/16 08:45; Admin Dose 100 MLS/HR; Start 06/20/16 at 14:30 Nicotine (Nicoderm 21 Mg/ 24hr) 1 patch DAILY TRANSDERM Last administered on 08:45; Admin Dose 1 PATCH; Start 06/20/16 at 13:30 Miscellaneous Information 1 ea NOTE XX ; Start 06/20/16 at 14:00 Glucose (Glutose) 15 gm Q15M PRN PO DECREASED GLUCOSE; Start 06/20/16 at 14:00 Glucose (Glutose) 22.5 gm Q15M PRN PO DECREASED GLUCOSE; Start 06/20/16 at 14: 00 Dextrose (D50w Syringe) 25 ml Q15M PRN IV DECREASED GLUCOSE Last administered on 06/20/16 19:19; Admin Dose 25 ML; Start 06/20/16 at 14:00 Dextrose (D50w Syringe) 50 ml Q15M PRN IV DECREASED GLUCOSE; Start 06/20/16 at 14:00 Glucagon (Glucagen) 1 mg Q15M PRN IM DECREASED GLUCOSE; Start 06/20/16 at 14:00 Glucose (Glutose) 15 gm Q15M PRN BUCCAL DECREASED GLUCOSE; Start 06/20/16 at 14 :00 Enoxaparin Sodium 40 mg 40 mg Q24H SC Last administered on 06/21/16 14:53; Admin Dose 40 MG; Start 06/21/16 at 14:00 Potassium Chloride/Sodium Chloride (KCl/NS) 1,020 ml @ 100 mls/hr [id number] IV Last administered on 06/23/16 03:27; Admin Dose 100 MLS/HR; Start 06/22/16 at 09:00 Diagnostic Test (Pha) (Accu-Chek) 1 ea 02 XX ; Start 06/22/16 at 16:00 MARCUS KEENE M.D. Jun 23, 2016 15:01
[2016-06-23] MEDS: INSULIN ASPART [NOVOLOG] 3 ML PEN SC SCH (17:16)
[2016-06-23] MEDS: ATORVASTATIN 10 MG TAB PO SCH (20:06)
[2016-06-24] MEDS: ACCUCHECK 2 AM XX SCH (02:20)
[2016-06-24 07:22] VITALS: BP 137/64; RESP 18
[2016-06-24] MEDS: CLOPIDOGREL 75 MG TAB PO SCH (08:16)
[2016-06-24] MEDS: NICOTINE (21 MG/24 HR) PATCH TRANSDERM SCH (08:16)
[2016-06-24] MEDS: GABAPENTIN 300 MG CAP PO SCH (08:16)
[2016-06-24] MEDS: INSULIN ASPART [NOVOLOG] 3 ML PEN SC SCH ×3 (08:20→17:17)
[2016-06-24] MEDS: IMIPENEM-CILAST 250MG IV (PMX) 100 ML IVPB SCH ×2 (08:58→20:14)
--- NOTE | 2016-06-24 10:45 | PN ---
Date/Time of Note Date/Time of Note DATE: 06/24/16 TIME: 10:44 Assessment/Plan Lines/Catheters IV Catheter Type (from Nrsg): Peripheral IV Hansen in Place (from Nrsg): No Assessment/Plan Chief Complaint/Hosp Course RECOMMENDATIONS: The patient will need an angiogram, possible angioplasty. However, she is at high risk of dissection secondary to high calcification. RECOMMENDATIONS: SMA Stenosis Plan for SMA Angioplasty and stent placement in the OR tomorrow . Discussed with the patient. Problems: Subjective 24 Hr Interval Summary Constitutional: improved Pain Control: mild Exam/Review of Systems Vital Signs Vitals Vital Signs Date Time Temp Pulse Resp B/P Pulse Ox O2 Delivery O2 Flow Rate FiO2 06/24/16 07:22 98.3 92 18 137/64 96 Intake and Output 06/23/16 06/23/16 06/24/16 15:00 23:00 07:00 Intake Total 830 ml 650 ml Output Total 850 ml Balance -20 ml 650 ml Exam Neck: non-tender, supple Respiratory: clear to auscultation, normal air movement Cardiovascular: nl pulses, regular rate and rhythm Results Result Diagram: 06/23/16 0539 06/23/16 0539 MALIA COLLAZO MD Jun 24, 2016 10:45
[2016-06-24] MEDS: POTASSIUM CHLORIDE 40 MEQ in SOD CHLORIDE 0.9% 1,000 ML IV SCH ×2 (12:36→15:29)
--- NOTE | 2016-06-24 12:54 | CONS ---
Date/Time of Note Date/Time of Note DATE: 06/24/16 TIME: 12:53 Assessment/Plan Assessment/Plan Additional Assessment/Plan 1. 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 S/P myocardial infarction. 3. Abnormal electrocardiogram 4. Hypertension 5. Dyslipidemia. 6. Tobacco Abuse. Stress test shows no reversible ischemia She is scheduled for SMA angioplasty on Saturday Continue Plavix Continue Lipitor Continue Antibiotics Continue Lisinopril Continue Nicotine patch Consultation Date/Type/Reason Admit Date/Time Jun 20, 2016 at 15:01 Initial Consult Date Type of Consultation: Cardiology Referring Provider: NITIN ZEPEDA Exam/Review of Systems Vital Signs Vitals Vital Signs Date Time Temp Pulse Resp B/P Pulse Ox O2 Delivery O2 Flow Rate FiO2 06/24/16 07:22 98.3 92 18 137/64 96 Intake and Output 06/23/16 06/23/16 06/24/16 15:00 23:00 07:00 Intake Total 830 ml 650 ml Output Total 850 ml Balance -20 ml 650 ml Exam Head: atraumatic, normocephalic Neck: non-tender, supple Respiratory: diminished breath sounds Cardiovascular: regular rate and rhythm Gastrointestinal: nl liver, spleen, non-tender, soft Extremities: normal pulses Results Result Diagram: 06/23/16 0539 06/23/16 0539 Results 24 hrs Laboratory Tests Test 06/23/16 16:46 06/24/16 02:13 06/24/16 07:59 06/24/16 11:52 Bedside Glucose 156 165 124 250 H Medications Medications Current Medications Acetaminophen (Tylenol Tab) 650 mg Q4H PRN PO PAIN AND OR ELEVATED TEMP; Start 06/20/16 at 02:00 Morphine Sulfate (morphine) 4 mg Q4H PRN IV pain Last administered on 20:44; Admin Dose 4 MG; Start 06/20/16 at 02:00 Ondansetron HCl (Zofran Inj) 4 mg Q4H PRN IV NAUSEA AND/OR VOMITING Last administered on 06/23/16 08:45; Admin Dose 4 MG; Start 06/20/16 at 02:00 Hydralazine HCl (Apresoline) 25 mg Q6 PRN PO sbp>160; Start 06/20/16 at 02:00 Clopidogrel Bisulfate (plaVIX) 75 mg DAILY PO Last administered on 06/24/16 08 :16; Admin Dose 75 MG; Start 06/20/16 at 09:00 Gabapentin (Neurontin) 300 mg DAILY PO Last administered on 06/24/16 08:16; Admin Dose 300 MG; Start 06/20/16 at 09:00 Lisinopril (Zestril) 40 mg DAILY PRN PO ELEVATED BLOOD PRESSURE; Start at 02:00 Atorvastatin Calcium 10 mg 10 mg DAILY@21 PO Last administered on 06/23/16 20: 06; Admin Dose 10 MG; Start 06/20/16 at 21:00 Imipenem/ Cilastatin Sodium (Primaxin 250 Mg/ 100 ml (Pmx)) 100 ml @ 100 mls/ hr Q12 IVPB Last administered on 06/24/16 08:58; Admin Dose 100 MLS/HR; Start 06/20/16 at 14:30 Nicotine (Nicoderm 21 Mg/ 24hr) 1 patch DAILY TRANSDERM Last administered on 08:16; Admin Dose 1 PATCH; Start 06/20/16 at 13:30 Miscellaneous Information 1 ea NOTE XX ; Start 06/20/16 at 14:00 Glucose (Glutose) 15 gm Q15M PRN PO DECREASED GLUCOSE; Start 06/20/16 at 14:00 Glucose (Glutose) 22.5 gm Q15M PRN PO DECREASED GLUCOSE; Start 06/20/16 at 14: 00 Dextrose (D50w Syringe) 25 ml Q15M PRN IV DECREASED GLUCOSE Last administered on 06/20/16 19:19; Admin Dose 25 ML; Start 06/20/16 at 14:00 Dextrose (D50w Syringe) 50 ml Q15M PRN IV DECREASED GLUCOSE; Start 06/20/16 at 14:00 Glucagon (Glucagen) 1 mg Q15M PRN IM DECREASED GLUCOSE; Start 06/20/16 at 14:00 Glucose 15 gm 15 gm Q15M PRN BUCCAL DECREASED GLUCOSE; Start 06/20/16 at 14:00 Potassium Chloride/Sodium Chloride (KCl/NS) 1,020 ml @ 50 mls/hr [id number] IV Last administered on 06/23/16 16:45; Admin Dose 50 MLS/HR; Start 06/22/16 at 09 :00 Diagnostic Test (Pha) (Accu-Chek) 1 ea 02 XX Last administered on 06/24/16t 02: 20; Admin Dose 1 EA; Start 06/22/16 at 16:00 Acetaminophen/ Hydrocodone Bitart ([place] (5/325)) 1 tab Q4H PRN PO pain; Start 06/23/16 at 17:30 MARCUS KEENE M.D. Jun 24, 2016 12:54
[2016-06-24 19:00] VITALS: BP 143/79; RESP 18
[2016-06-24] MEDS: ATORVASTATIN 10 MG TAB PO SCH (20:13)
[2016-06-24] MEDS: DOCUSATE SODIUM 100 MG CAP PO SCH (20:13)
--- NOTE | 2016-06-24 20:20 | PN ---
Date/Time of Note Date/Time of Note DATE: 06/24/16 TIME: 20:20 Assessment/Plan VTE Prophylaxis VTE Prophylaxis Intervention: SCD's Lines/Catheters IV [facility] Peripheral IV Urinary Cath still in place: No Assessment/Plan Assessment/Plan [facility] 1. 80 yo woman hospital day 3 with abdominal pain, nausea, vomiting, weight loss , likely all related to superior mesenteric artery stenosis and concerns for mesenteric ischemia now. CT abd/pelvis showed suspected high-grade stenosis of the SMA. First attempt at stenting Saturday was not successful. Cardiac stress test showed no ischemia. * Renew diet * Dr. Lamar suggested holding Lovenox, given patient is on Plavix * Attempt tomorrow planned to complete procedure. 2. Leukocytosis,possibly secondary to ischemic colitis/mesenteric ischemia. Resolved now. * Continue Imipenem 3. Peripheral vascular disease. * Continue secondary prevention. 4. Chronic obstructive pulmonary disease, with known tobacco use. Respiratory status stable so far. * Nebulizers PRN 5. Tobacco use, cessation is counseled. * Nicotine patch 6. Hypokalemia * Repleting potassium, Kphos and Magnesium 7. Prophylaxis: PPI with GI ppx. 8. Disposition: Vascular Surgery re eval and 2nd attempt at mesenteric angio pending tomorrow morning. * Repeat labs with INR. Fabiana Chao MD PhD [phone] Subjective 24 Hr Interval Summary Free Text/Dictation No complaints. No dyspnea. Mild cabin fever. Occasional discomfort in epigastric region in recent weeks with smoking, which we discussed. Exam/Review of Systems Vital Signs Vitals Vital Signs Date Time Temp Pulse Resp B/P Pulse Ox O2 Delivery O2 Flow Rate FiO2 06/24/16 07:22 98.3 92 18 137/64 96 Intake and Output 06/23/16 06/23/16 06/24/16 15:00 23:00 07:00 Intake Total 830 ml 650 ml Output Total 850 ml Balance -20 ml 650 ml Exam Constitutional: Alert, conversant, frail, comfortable-appearing in bed. Respiratory: clear to auscultation, normal air movement Cardiovascular: Symmetric pulses, regular rhythm, normal rate Gastrointestinal: non-tender, soft, bowel sounds normal. Musculoskeletal: No edema, clubbing or cyanosis. 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 Results Result Diagram: 06/23/16 0539 06/23/16 0539 Results 24 hrs Laboratory Tests Test 06/24/16 02:13 06/24/16 07:59 06/24/16 11:52 06/24/16 17:01 Bedside Glucose 165 124 250 H 240 H Medications Medications Current Medications Acetaminophen (Tylenol Tab) 650 mg Q4H PRN PO PAIN AND OR ELEVATED TEMP; Start 06/20/16 at 02:00 Morphine Sulfate (morphine) 4 mg Q4H PRN IV pain Last administered on 20:44; Admin Dose 4 MG; Start 06/20/16 at 02:00 Ondansetron HCl (Zofran Inj) 4 mg Q4H PRN IV NAUSEA AND/OR VOMITING Last administered on 06/23/16 08:45; Admin Dose 4 MG; Start 06/20/16 at 02:00 Hydralazine HCl (Apresoline) 25 mg Q6 PRN PO sbp>160; Start 06/20/16 at 02:00 Clopidogrel Bisulfate (plaVIX) 75 mg DAILY PO Last administered on 06/24/16 08 :16; Admin Dose 75 MG; Start 06/20/16 at 09:00 Gabapentin (Neurontin) 300 mg DAILY PO Last administered on 06/24/16 08:16; Admin Dose 300 MG; Start 06/20/16 at 09:00 Lisinopril (Zestril) 40 mg DAILY PRN PO ELEVATED BLOOD PRESSURE; Start at 02:00 Atorvastatin Calcium 10 mg 10 mg DAILY@21 PO Last administered on 06/24/16 20: 13; Admin Dose 10 MG; Start 06/20/16 at 21:00 Imipenem/ Cilastatin Sodium (Primaxin 250 Mg/ 100 ml (Pmx)) 100 ml @ 100 mls/ hr Q12 IVPB Last administered on 06/24/16 20:14; Admin Dose 100 MLS/HR; Start 06/20/16 at 14:30 Nicotine (Nicoderm 21 Mg/ 24hr) 1 patch DAILY TRANSDERM Last administered on 08:16; Admin Dose 1 PATCH; Start 06/20/16 at 13:30 Miscellaneous Information 1 ea NOTE XX ; Start 06/20/16 at 14:00 Glucose (Glutose) 15 gm Q15M PRN PO DECREASED GLUCOSE; Start 06/20/16 at 14:00 Glucose (Glutose) 22.5 gm Q15M PRN PO DECREASED GLUCOSE; Start 06/20/16 at 14: 00 Dextrose (D50w Syringe) 25 ml Q15M PRN IV DECREASED GLUCOSE Last administered on 06/20/16 19:19; Admin Dose 25 ML; Start 06/20/16 at 14:00 Dextrose (D50w Syringe) 50 ml Q15M PRN IV DECREASED GLUCOSE; Start 06/20/16 at 14:00 Glucagon (Glucagen) 1 mg Q15M PRN IM DECREASED GLUCOSE; Start 06/20/16 at 14:00 Glucose 15 gm 15 gm Q15M PRN BUCCAL DECREASED GLUCOSE; Start 06/20/16 at 14:00 Potassium Chloride/Sodium Chloride (KCl/NS) 1,020 ml @ 50 mls/hr [id number] IV Last administered on 06/24/16 15:29; Admin Dose 50 MLS/HR; Start 06/22/16 at 09 :00 Diagnostic Test (Pha) (Accu-Chek) 1 ea 02 XX Last administered on 06/24/16 02: 20; Admin Dose 1 EA; Start 06/22/16 at 16:00 Acetaminophen/ Hydrocodone Bitart ([place] (5/325)) 1 tab Q4H PRN PO pain; Start 06/23/16 at 17:30 Docusate Sodium (Colace) 100 mg BID PO Last administered on 06/24/16 20:13; Admin Dose 100 MG; Start 06/24/16 at 21:00 KELLY CHAO M.D. Jun 24, 2016 20:20
[2016-06-25] MEDS: ACCUCHECK 2 AM XX SCH (02:32)
[2016-06-25] MEDS: HYDROCODONE/APAP (5/325) TAB PO PRN ×2 (04:34→14:44)
[2016-06-25] MEDS: INSULIN ASPART [NOVOLOG] 3 ML PEN SC SCH ×3 (07:56→17:30)
[2016-06-25 08:13] VITALS: BP 135/64; RESP 19
[2016-06-25] MEDS: CLOPIDOGREL 75 MG TAB PO SCH (09:00)
[2016-06-25] MEDS: GABAPENTIN 300 MG CAP PO SCH (09:00)
[2016-06-25] MEDS: DOCUSATE SODIUM 100 MG CAP PO SCH ×2 (09:00→20:33)
[2016-06-25 09:16] LABS: ADD SCAN DIFF NO
[2016-06-25 09:19] LABS: BASOPHILS % 0.4 % (0.0-2.0); EOSINOPHILS # 0.1 10^3/ul (0.0-0.5); EOSINOPHILS % 1.4 % (0.0-7.0); HEMATOCRIT 35.7 % (37.0-47.0); HEMOGLOBIN 11.4 g/dl (12.0-16.0); LYMPHOCYTES # 1.5 10^3/ul (0.8-2.9); LYMPHOCYTES % 19.3 % (15.0-51.0); MEAN CORPUSCULAR HEMOGLOBIN 29.2 pg (29.0-33.0); MEAN CORPUSCULAR HGB CONC 31.9 g/dl (32.0-37.0); MEAN CORPUSCULAR VOLUME 91.3 fl (82.0-101.0); MEAN PLATELET VOLUME 9.6 fl (7.4-10.4); MONOCYTE # 1.1 10^3/ul (0.3-0.9); NEUTROPHIL # 5.1 10^3/ul (1.6-7.5); NEUTROPHILS % 64.5 % (39.0-77.0); PLATELET COUNT 252 10^3/UL (140-415); RED BLOOD COUNT 3.91 10^6/ul (4.20-5.40); RED CELL DISTRIBUTION WIDTH 12.5 % (11.5-14.5); WHITE BLOOD COUNT 7.8 10^3/ul (4.8-10.8)
[2016-06-25] MEDS: IMIPENEM-CILAST 250MG IV (PMX) 100 ML IVPB SCH ×2 (09:26→20:33)
[2016-06-25] MEDS: NICOTINE (21 MG/24 HR) PATCH TRANSDERM SCH (09:33)
[2016-06-25 09:38] LABS: CALCIUM 9.1 mg/dl (8.4-10.2); CREATININE 0.51 mg/dl (0.44-1.00); INR 1.13; POTASSIUM 4.3 mmol/L (3.5-5.1); PROTIME 14.5 Sec (12.2-14.2); PT RATIO 1.1
--- NOTE | 2016-06-25 16:40 | PN ---
Date/Time of Note Date/Time of Note DATE: 06/25/16 TIME: 16:34 Assessment/Plan VTE Prophylaxis VTE Prophylaxis Intervention: LMWH Lines/Catheters IV C[facility]ter Type (from [facility]): Peripheral IV Urinary Cath still in place: No Assessment/Plan Assessment/Plan 80 yo female with: 1. 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 CT abdo/pelvis here with suspected high-grade stenosis of the SMA. Appreciate Cardiology eval from Dr Brannon, stress test negative last week Dr. James has attempted stenting Saturday but too much calcification through femoral, so will have to try with different access rescheduled for tomorrow AM now. Patient back on anticoagulation, IVF and NPO after MN again. 2. Leukocytosis, almost certainly related to gastrointestinal complaint and possible ischemic colitis/mesenteric ischemia. Resolved. On Imipenem 3. Peripheral vascular disease. Continue secondary prevention. 4. Chronic obstructive pulmonary disease, with known tobacco use. Respiratory status stable so far. Nebs prn. 5. Tobacco abuse, cessation is counseled. Nicotine patch Prophylaxis: Lovenox treatment dose and PPI with GI ppx. Disposition: Vascular Surgery re eval and 2nd attempt at mesenteric angio pending tomorrow AM. Subjective 24 Hr Interval Summary Free Text/Dictation Patient remains stable and awaiting repeat procedure in AM with vascular Exam/Review of Systems Vital Signs Vitals Vital Signs Date Time Temp Pulse Resp B/P Pulse Ox O2 Delivery O2 Flow Rate FiO2 06/25/16 08:13 97.7 73 19 135/64 99 Intake and Output 06/24/16 06/24/16 06/25/16 14:59 22:59 06:59 Intake Total 1950 ml 980 ml Output Total 400 ml Balance 1950 ml 580 ml Exam Constitutional: alert, frail, oriented Respiratory: clear to auscultation, normal air movement Cardiovascular: nl pulses, regular rate and rhythm Gastrointestinal: soft, tender (some upper abdo tenderness ) Musculoskeletal: nl extremities to inspection Extremities: normal pulses Neurological: [employer] II-XII intact, nl mental status, nl speech, nl strength (at baseline ) Results Result Diagram: 06/25/16 0902 06/25/16 0902 Results 24 hrs Laboratory Tests Test 06/24/16 17:01 06/25/16 02:31 06/25/16 07:47 06/25/16 09:02 Bedside Glucose 240 H 187 137 White Blood Count 7.8 # Red Blood Count 3.91 L Hemoglobin 11.4 L Hematocrit 35.7 L Mean Corpuscular Volume 91.3 Mean Corpuscular Hemoglobin 29.2 Mean Corpuscular Hemoglobin Concent 31.9 L Red Cell Distribution Width 12.5 Platelet Count 252 Mean Platelet Volume 9.6 Neutrophils % 64.5 Lymphocytes % 19.3 Monocytes % 14.0 H Eosinophils % 1.4 Basophils % 0.4 Nucleated Red Blood Cells % 0.0 Neutrophils # 5.1 Lymphocytes # 1.5 Monocytes # 1.1 H Eosinophils # 0.1 Basophils # 0.0 Nucleated Red Blood Cells # 0.0 Prothrombin Time 14.5 H Prothrombin Time Ratio 1.1 INR International Normalized Ratio 1.13 Sodium Level 136 Potassium Level 4.3 Chloride Level 103 Carbon Dioxide Level 29 Anion Gap 8 Blood Urea Nitrogen 5 L Creatinine 0.51 Glucose Level 128 Calcium Level 9.1 Test 06/25/16 11:42 Bedside Glucose 138 Medications Medications Current Medications Acetaminophen (Tylenol Tab) 650 mg Q4H PRN PO PAIN AND OR ELEVATED TEMP; Start 06/20/16 at 02:00 Morphine Sulfate (morphine) 4 mg Q4H PRN IV pain Last administered on 20:44; Admin Dose 4 MG; Start 06/20/16 at 02:00 Ondansetron HCl (Zofran Inj) 4 mg Q4H PRN IV NAUSEA AND/OR VOMITING Last administered on 06/23/16 08:45; Admin Dose 4 MG; Start 06/20/16 at 02:00 Hydralazine HCl (Apresoline) 25 mg Q6 PRN PO sbp>160; Start 06/20/16 at 02:00 Clopidogrel Bisulfate (plaVIX) 75 mg DAILY PO Last administered on 06/24/16 08 :16; Admin Dose 75 MG; Start 06/20/16 at 09:00 Gabapentin (Neurontin) 300 mg DAILY PO Last administered on 06/24/16 08:16; Admin Dose 300 MG; Start 06/20/16 at 09:00 Lisinopril (Zestril) 40 mg DAILY PRN PO ELEVATED BLOOD PRESSURE; Start at 02:00 Atorvastatin Calcium 10 mg 10 mg DAILY@21 PO Last administered on 06/24/16 20: 13; Admin Dose 10 MG; Start 06/20/16 at 21:00 Imipenem/ Cilastatin Sodium (Primaxin 250 Mg/ 100 ml (Pmx)) 100 ml @ 100 mls/ hr Q12 IVPB Last administered on 06/25/16 09:26; Admin Dose 100 MLS/HR; Start 06/20/16 at 14:30 Nicotine (Nicoderm 21 Mg/ 24hr) 1 patch DAILY TRANSDERM Last administered on 09:33; Admin Dose 1 PATCH; Start 06/20/16 at 13:30 Miscellaneous Information 1 ea NOTE XX ; Start 06/20/16 at 14:00 Glucose (Glutose) 15 gm Q15M PRN PO DECREASED GLUCOSE; Start 06/20/16 at 14:00 Glucose (Glutose) 22.5 gm Q15M PRN PO DECREASED GLUCOSE; Start 06/20/16 at 14: 00 Dextrose (D50w Syringe) 25 ml Q15M PRN IV DECREASED GLUCOSE Last administered on 06/20/16 19:19; Admin Dose 25 ML; Start 06/20/16 at 14:00 Dextrose (D50w Syringe) 50 ml Q15M PRN IV DECREASED GLUCOSE; Start 06/20/16 at 14:00 Glucagon (Glucagen) 1 mg Q15M PRN IM DECREASED GLUCOSE; Start 06/20/16 at 14:00 Glucose 15 gm 15 gm Q15M PRN BUCCAL DECREASED GLUCOSE; Start 06/20/16 at 14:00 Potassium Chloride/Sodium Chloride (KCl/NS) 1,020 ml @ 50 mls/hr [id number] IV Last administered on 06/24/16 15:29; Admin Dose 50 MLS/HR; Start 06/22/16 at 09 :00 Diagnostic Test (Pha) (Accu-Chek) 1 ea 02 XX Last administered on 06/25/16 02: 32; Admin Dose 1 EA; Start 06/22/16 at 16:00 Acetaminophen/ Hydrocodone Bitart ([place] (5/325)) 1 tab Q4H PRN PO pain Last administered on 06/25/16 14:44; Admin Dose 1 TAB; Start 06/23/16 at 17:30 Docusate Sodium (Colace) 100 mg BID PO Last administered on 4/16/17at 20:13; Admin Dose 100 MG; Start 06/24/16 at 21:00 NITIN ZEPEDA Jun 25, 2016 16:40 NITIN ZEPEDA Jun 25, 2016 16:40
[2016-06-25] MEDS: POTASSIUM CHLORIDE 40 MEQ in SOD CHLORIDE 0.9% 1,000 ML IV SCH (17:15)
--- NOTE | 2016-06-25 18:14 | CONS ---
Date/Time of Note Date/Time of Note DATE: 06/25/16 TIME: 18:11 Assessment/Plan Assessment/Plan Chief Complaint/Hosp Course IMPRESSION: 1. Preoperative evaluation prior to treatment for likely ischemic bowel.- negative troponin x 3/NL EF by echo this admit. Lexiscan negative for ischemia with NL EF 06/21/16 2. History of myocardial infarction. 3. Abnormal electrocardiogram, with biphasic inferior T-wave abnormalities. 4. Hypertension, borderline. 5. Dyslipidemia. 6. Ongoing tobacco usage. 7. Ischemic bowel. 8. Poor p.o. intake secondary to ischemic bowel, with subsequent weight loss. 9. Hyponatremia. Recc: -Continue zestril -Continue statin -Continue plavix -Will be taken to OR tomorrow for repeat attempt at opening mesenteric vessel Problems: Consultation Date/Type/Reason Admit Date/Time Jun 20, 2016 at 15:01 Initial Consult Date 06/21/2016 Type of Consultation: Cardiology Reason for Consultation Pre-op Referring Provider: NITIN ZEPEDA Exam/Review of Systems Vital Signs Vitals Vital Signs Date Time Temp Pulse Resp B/P Pulse Ox O2 Delivery O2 Flow Rate FiO2 06/25/16 08:13 97.7 73 19 135/64 99 Intake and Output 06/24/16 06/24/16 06/25/16 15:00 23:00 07:00 Intake Total 1950 ml 980 ml Output Total 400 ml Balance 1950 ml 580 ml Exam Review of Systems: CONSTITUTIONAL: No fevers, chills. PULMONARY: No sob CARDIOVASCULAR: No chest pain/palpitations GASTROINTESTINAL: Abd pain GENITOURINARY: No hematuria/dysuria. MUSCULOSKELETAL: No myagias/arthalgias. PSYCHIATRIC: The patient denies depression. NEUROLOGIC: No weakness Constitutional: alert Psych: no complaints Head: normocephalic ENMT: mucosa pink and moist Neck: jvd (8 cm water), supple Respiratory: clear to auscultation Cardiovascular: regular rate and rhythm Gastrointestinal: non-tender, soft Extremities: edema (none) Neurological: other (No focal deficits) Results Result Diagram: 06/25/16 0902 06/25/16 0902 Results 24 hrs Laboratory Tests Test 06/25/16 02:31 06/25/16 07:47 06/25/16 09:02 06/25/16 11:42 Bedside Glucose 187 137 138 White Blood Count 7.8 # Red Blood Count 3.91 L Hemoglobin 11.4 L Hematocrit 35.7 L Mean Corpuscular Volume 91.3 Mean Corpuscular Hemoglobin 29.2 Mean Corpuscular Hemoglobin Concent 31.9 L Red Cell Distribution Width 12.5 Platelet Count 252 Mean Platelet Volume 9.6 Neutrophils % 64.5 Lymphocytes % 19.3 Monocytes % 14.0 H Eosinophils % 1.4 Basophils % 0.4 Nucleated Red Blood Cells % 0.0 Neutrophils # 5.1 Lymphocytes # 1.5 Monocytes # 1.1 H Eosinophils # 0.1 Basophils # 0.0 Nucleated Red Blood Cells # 0.0 Prothrombin Time 14.5 H Prothrombin Time Ratio 1.1 INR International Normalized Ratio 1.13 Sodium Level 136 Potassium Level 4.3 Chloride Level 103 Carbon Dioxide Level 29 Anion Gap 8 Blood Urea Nitrogen 5 L Creatinine 0.51 Glucose Level 128 Calcium Level 9.1 Test 06/25/16 17:13 Bedside Glucose 239 H Medications Medications Current Medications Acetaminophen (Tylenol Tab) 650 mg Q4H PRN PO PAIN AND OR ELEVATED TEMP; Start 06/20/16 at 02:00 Morphine Sulfate (morphine) 4 mg Q4H PRN IV pain Last administered on 20:44; Admin Dose 4 MG; Start 06/20/16 at 02:00 Ondansetron HCl (Zofran Inj) 4 mg Q4H PRN IV NAUSEA AND/OR VOMITING Last administered on 06/23/16 08:45; Admin Dose 4 MG; Start 06/20/16 at 02:00 Hydralazine HCl (Apresoline) 25 mg Q6 PRN PO sbp>160; Start 06/20/16 at 02:00 Clopidogrel Bisulfate (plaVIX) 75 mg DAILY PO Last administered on 06/24/16 08 :16; Admin Dose 75 MG; Start 06/20/16 at 09:00 Gabapentin (Neurontin) 300 mg DAILY PO Last administered on 06/24/16 08:16; Admin Dose 300 MG; Start 06/20/16 at 09:00 Lisinopril (Zestril) 40 mg DAILY PRN PO ELEVATED BLOOD PRESSURE; Start at 02:00 Atorvastatin Calcium 10 mg 10 mg DAILY@21 PO Last administered on 06/24/16 20: 13; Admin Dose 10 MG; Start 06/20/16 at 21:00 Imipenem/ Cilastatin Sodium (Primaxin 250 Mg/ 100 ml (Pmx)) 100 ml @ 100 mls/ hr Q12 IVPB Last administered on 06/25/16 09:26; Admin Dose 100 MLS/HR; Start 06/20/16 at 14:30 Nicotine (Nicoderm 21 Mg/ 24hr) 1 patch DAILY TRANSDERM Last administered on 09:33; Admin Dose 1 PATCH; Start 06/20/16 at 13:30 Miscellaneous Information 1 ea NOTE XX ; Start 06/20/16 at 14:00 Glucose (Glutose) 15 gm Q15M PRN PO DECREASED GLUCOSE; Start 06/20/16 at 14:00 Glucose (Glutose) 22.5 gm Q15M PRN PO DECREASED GLUCOSE; Start 06/20/16 at 14: 00 Dextrose (D50w Syringe) 25 ml Q15M PRN IV DECREASED GLUCOSE Last administered on 06/20/16 19:19; Admin Dose 25 ML; Start 06/20/16 at 14:00 Dextrose (D50w Syringe) 50 ml Q15M PRN IV DECREASED GLUCOSE; Start 06/20/16 at 14:00 Glucagon (Glucagen) 1 mg Q15M PRN IM DECREASED GLUCOSE; Start 06/20/16 at 14:00 Glucose 15 gm 15 gm Q15M PRN BUCCAL DECREASED GLUCOSE; Start 06/20/16 at 14:00 Potassium Chloride/Sodium Chloride (KCl/NS) 1,020 ml @ 50 mls/hr [id number] IV Last administered on 06/25/16 17:15; Admin Dose 50 MLS/HR; Start 06/22/16 at 09 :00 Diagnostic Test (Pha) (Accu-Chek) 1 ea 02 XX Last administered on 06/25/16 02: 32; Admin Dose 1 EA; Start 06/22/16 at 16:00 Acetaminophen/ Hydrocodone Bitart ([place] (5/325)) 1 tab Q4H PRN PO pain Last administered on 06/25/16 14:44; Admin Dose 1 TAB; Start 06/23/16 at 17:30 Docusate Sodium (Colace) 100 mg BID PO Last administered on 06/24/16 20:13; Admin Dose 100 MG; Start 06/24/16 at 21:00 BALDO VASQUES Jun 25, 2016 18:13
[2016-06-25] MEDS: ATORVASTATIN 10 MG TAB PO SCH (20:33)
[2016-06-25 21:08] VITALS: BP 138/62; RESP 16
--- NOTE | 2016-06-25 21:44 | PN ---
Date/Time of Note Date/Time of Note DATE: 06/25/16 TIME: 21:43 Assessment/Plan Lines/Catheters IV Catheter Type (from Nrs): Peripheral IV Hansen in Place (from Nrs): No Assessment/Plan Chief Complaint/Hosp Course RECOMMENDATIONS: The patient will need an angiogram, possible angioplasty. However, she is at high risk of dissection secondary to high calcification. RECOMMENDATIONS: SMA Stenosis C Arm not available today Plan for SMA Angioplasty and stent placement in the OR tomorrow . Discussed with the patient. Problems: Subjective 24 Hr Interval Summary Constitutional: improved Pain Control: mild Exam/Review of Systems Vital Signs Vitals Vital Signs Date Time Temp Pulse Resp B/P Pulse Ox O2 Delivery O2 Flow Rate FiO2 06/25/16 21:08 98.2 81 16 138/62 95 Intake and Output 06/24/16 06/24/16 06/25/16 15:00 23:00 07:00 Intake Total 1950 ml 980 ml Output Total 400 ml Balance 1950 ml 580 ml Exam Neck: non-tender, supple Respiratory: clear to auscultation, normal air movement Cardiovascular: nl pulses, regular rate and rhythm Gastrointestinal: nl liver, spleen, non-tender, soft Results Result Diagram: 06/25/16 0902 06/25/1602 MALIA COLLAZO MD Jun 25, 2016 21:44
[2016-06-26] VITALS (19 sets, daily range): BP systolic 121–167; BP diastolic 63–98; PULSE 82–118; RESP 12–24
[2016-06-26] MEDS: ACCUCHECK 2 AM XX SCH (02:29)
[2016-06-26 05:57] LABS: ADD SCAN DIFF NO
[2016-06-26 06:13] LABS: POTASSIUM 3.9 mmol/L (3.5-5.1)
[2016-06-26 06:16] LABS: CREATININE 0.52 mg/dl (0.44-1.00)
[2016-06-26 06:17] LABS: CALCIUM 9.1 mg/dl (8.4-10.2)
[2016-06-26 06:21] LABS: MAGNESIUM 1.5 mg/dl (1.7-2.5); PHOSPHORUS 3.8 mg/dl (2.5-4.9)
[2016-06-26 06:33] LABS: BASOPHIL # 0.1 10^3/ul (0.0-0.1); BASOPHILS % 0.5 % (0.0-2.0); EOSINOPHILS # 0.2 10^3/ul (0.0-0.5); EOSINOPHILS % 1.4 % (0.0-7.0); HEMATOCRIT 33.2 % (37.0-47.0); HEMOGLOBIN 10.9 g/dl (12.0-16.0); LYMPHOCYTES # 1.2 10^3/ul (0.8-2.9); LYMPHOCYTES % 11.7 % (15.0-51.0); MEAN CORPUSCULAR HEMOGLOBIN 29.6 pg (29.0-33.0); MEAN CORPUSCULAR HGB CONC 32.8 g/dl (32.0-37.0); MEAN CORPUSCULAR VOLUME 90.2 fl (82.0-101.0); MEAN PLATELET VOLUME 9.6 fl (7.4-10.4); MONOCYTE # 1.4 10^3/ul (0.3-0.9); MONOCYTES % 13.2 % (0.0-11.0); NEUTROPHIL # 7.6 10^3/ul (1.6-7.5); NEUTROPHILS % 72.7 % (39.0-77.0); PLATELET COUNT 266 10^3/UL (140-415); RED BLOOD COUNT 3.68 10^6/ul (4.20-5.40); RED CELL DISTRIBUTION WIDTH 12.3 % (11.5-14.5); WHITE BLOOD COUNT 10.4 10^3/ul (4.8-10.8)
[2016-06-26] MEDS: INSULIN ASPART [NOVOLOG] 3 ML PEN SC SCH ×3 (08:00→18:28)
[2016-06-26] MEDS: NICOTINE (21 MG/24 HR) PATCH TRANSDERM SCH (08:30)
[2016-06-26] MEDS: DOCUSATE SODIUM 100 MG CAP PO SCH ×2 (08:34→20:49)
[2016-06-26] MEDS: IMIPENEM-CILAST 250MG IV (PMX) 100 ML IVPB SCH ×2 (08:34→20:47)
[2016-06-26] MEDS: CLOPIDOGREL 75 MG TAB PO SCH (08:34)
[2016-06-26] MEDS: GABAPENTIN 300 MG CAP PO SCH (08:34)
[2016-06-26] MEDS ORDERED: IOHEXOL 300MG/ML 30 ML BTL ONE (09:06)
[2016-06-26] MEDS ORDERED: HEPARIN 1000 UNITS/ML 10 ML INJ ONE ×2 (09:06→10:40)
[2016-06-26] MEDS ORDERED: FENTAnyl 50 MCG/ML VIAL ONE (09:32)
[2016-06-26] MEDS ORDERED: MIDAZOLAM 1 MG/ML 2 ML INJ ONE (09:32)
[2016-06-26] MEDS ORDERED: LIDOCAINE 1% (MPF) 30 ML INJ ONE (09:55)
[2016-06-26] MEDS ORDERED: PHENYLephrine (100 MCG/ML) 5ML SYG ONE (10:16)
[2016-06-26] MEDS ORDERED: THROMBIN 5000 UNIT VIAL ONE (10:23)
[2016-06-26] MEDS ORDERED: GELATIN SIZE 100 SPONGE ONE (10:23)
[2016-06-26] MEDS ORDERED: ONDANSETRON 4 MG INJ IV PRN (10:30)
[2016-06-26] MEDS ORDERED: FENTAnyl 50 MCG/ML VIAL IV PRN (10:30)
[2016-06-26] MEDS ORDERED: morphine (1 MG/ML) 10ML SYRINGE IV PRN (10:30)
[2016-06-26] MEDS ORDERED: MEPERIDINE 25 MG INJ IV PRN (10:30)
[2016-06-26] MEDS ORDERED: DIPHENHYDRAMINE 50 MG INJ IV PRN (10:30)
[2016-06-26] MEDS ORDERED: LABETALOL HCL 20MG INJ IV PRN (10:30)
[2016-06-26] MEDS ORDERED: hydrALAzine 20 MG INJ IV PRN (10:30)
--- NOTE | 2016-06-26 10:40 | CONS ---
Date/Time of Note Date/Time of Note DATE: 06/26/16 TIME: 10:39 Assessment/Plan Assessment/Plan Additional Assessment/Plan In surgery now, will follow post op Consultation Date/Type/Reason Admit Date/Time Jun 20, 2016 at 15:01 Initial Consult Date Type of Consultation: Cardiology Referring Provider: NITIN ZEPEDA Exam/Review of Systems Vital Signs Vitals Vital Signs Date Time Temp Pulse Resp B/P Pulse Ox O2 Delivery O2 Flow Rate FiO2 06/26/16 08:19 97 Room Air 06/26/16 08:10 98.5 86 20 156/78 Intake and Output 06/25/16 06/25/16 06/26/16 14:59 22:59 06:59 Intake Total 520 ml 525 ml Output Total 200 ml 550 ml Balance -200 ml -30 ml 525 ml Results Result Diagram: 06/26/16 0550 06/26/16 0550 Results 24 hrs Laboratory Tests Test 06/25/16 11:42 06/25/16 17:13 06/26/16 02:08 06/26/16 05:50 Bedside Glucose 138 239 H 140 White Blood Count 10.4 # Red Blood Count 3.68 L Hemoglobin 10.9 L Hematocrit 33.2 L Mean Corpuscular Volume 90.2 Mean Corpuscular Hemoglobin 29.6 Mean Corpuscular Hemoglobin Concent 32.8 Red Cell Distribution Width 12.3 Platelet Count 266 Mean Platelet Volume 9.6 Neutrophils % 72.7 Lymphocytes % 11.7 L Monocytes % 13.2 H Eosinophils % 1.4 Basophils % 0.5 Nucleated Red Blood Cells % 0.0 Neutrophils # 7.6 H Lymphocytes # 1.2 Monocytes # 1.4 H Eosinophils # 0.2 Basophils # 0.1 Nucleated Red Blood Cells # 0.0 Sodium Level 134 L Potassium Level 3.9 Chloride Level 101 Carbon Dioxide Level 28 Anion Gap 9 Blood Urea Nitrogen 11 Creatinine 0.52 Glucose Level 149 Calcium Level 9.1 Phosphorus Level 3.8 Magnesium Level 1.5 L Test 06/26/16 07:43 Bedside Glucose 137 Medications Medications Current Medications Acetaminophen (Tylenol Tab) 650 mg Q4H PRN PO PAIN AND OR ELEVATED TEMP; Start 06/20/16 at 02:00 Morphine Sulfate (morphine) 4 mg Q4H PRN IV pain Last administered on t 20:44; Admin Dose 4 MG; Start 06/20/16 at 02:00 Ondansetron HCl (Zofran Inj) 4 mg Q4H PRN IV NAUSEA AND/OR VOMITING Last administered on 06/23/16 08:45; Admin Dose 4 MG; Start 06/20/16 at 02:00 Hydralazine HCl (Apresoline) 25 mg Q6 PRN PO sbp>160; Start 06/20/16 at 02:00 Clopidogrel Bisulfate (plaVIX) 75 mg DAILY PO Last administered on 06/24/16 08 :16; Admin Dose 75 MG; Start 06/20/16 at 09:00 Gabapentin (Neurontin) 300 mg DAILY PO Last administered on 06/24/16 08:16; Admin Dose 300 MG; Start 06/20/16 at 09:00 Lisinopril (Zestril) 40 mg DAILY PRN PO ELEVATED BLOOD PRESSURE; Start at 02:00 Atorvastatin Calcium 10 mg 10 mg DAILY@21 PO Last administered on 06/25/16 20: 33; Admin Dose 10 MG; Start 06/20/16 at 21:00 Imipenem/ Cilastatin Sodium (Primaxin 250 Mg/ 100 ml (Pmx)) 100 ml @ 100 mls/ hr Q12 IVPB Last administered on 06/25/16 20:33; Admin Dose 100 MLS/HR; Start 06/20/16 at 14:30 Nicotine (Nicoderm 21 Mg/ 24hr) 1 patch DAILY TRANSDERM Last administered on 08:30; Admin Dose 1 PATCH; Start 06/20/16 at 13:30 Miscellaneous Information 1 ea NOTE XX ; Start 06/20/16 at 14:00 Glucose (Glutose) 15 gm Q15M PRN PO DECREASED GLUCOSE; Start 06/20/16 at 14:00 Glucose (Glutose) 22.5 gm Q15M PRN PO DECREASED GLUCOSE; Start 06/20/16 at 14: 00 Dextrose (D50w Syringe) 25 ml Q15M PRN IV DECREASED GLUCOSE Last administered on 06/20/16 19:19; Admin Dose 25 ML; Start 06/20/16 at 14:00 Dextrose (D50w Syringe) 50 ml Q15M PRN IV DECREASED GLUCOSE; Start 06/20/16 at 14:00 Glucagon (Glucagen) 1 mg Q15M PRN IM DECREASED GLUCOSE; Start 06/20/16 at 14:00 Glucose 15 gm 15 gm Q15M PRN BUCCAL DECREASED GLUCOSE; Start 06/20/16 at 14:00 Potassium Chloride/Sodium Chloride (KCl/NS) 1,020 ml @ 50 mls/hr [id number] IV Last administered on 06/25/16 17:15; Admin Dose 50 MLS/HR; Start 06/22/16 at 09 :00 Diagnostic Test (Pha) (Accu-Chek) 1 ea 02 XX Last administered on 06/26/16 02: 29; Admin Dose 1 EA; Start 06/22/16 at 16:00 Acetaminophen/ Hydrocodone Bitart ([place] (5/325)) 1 tab Q4H PRN PO pain Last administered on 06/25/16 14:44; Admin Dose 1 TAB; Start 06/23/16 at 17:30 Docusate Sodium (Colace) 100 mg BID PO Last administered on 06/25/16 20:33; Admin Dose 100 MG; Start 06/24/16 at 21:00 TANNA ACKERMAN MD Jun 26, 2016 10:39
--- NOTE | 2016-06-26 12:10 | PN ---
Date/Time of Note Date/Time of Note DATE: 06/26/16 TIME: 12:04 Assessment/Plan VTE Prophylaxis VTE Prophylaxis Intervention: LMWH Lines/Catheters IV C[facility]ter Type (from [facility]): Peripheral IV Urinary Cath still in place: No Assessment/Plan Assessment/Plan 80 yo female with: 1. 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 CT abdo/pelvis here with suspected high-grade stenosis of the SMA. Appreciate Cardiology eval from Dr Brannon, stress test negative last week Dr. James has attempted stenting of SMA again today going through subclavian but unsuccessful due to severe PVD and chronic obstruction, angio revealed severe PAD/PVD with chronic obstructions Dr Etienne still discussing alternative minimally invasive approach vs surgery with patient and her family as risks higher 2. Leukocytosis, almost certainly related to gastrointestinal complaint and possible ischemic colitis/mesenteric ischemia. Resolved. On Imipenem 3. Severe peripheral vascular disease. Continue secondary prevention. 4. Chronic obstructive pulmonary disease, with known tobacco use. Respiratory status stable so far. Nebs prn. 5. Tobacco abuse, cessation is counseled. Nicotine patch Prophylaxis: Lovenox treatment dose and PPI with GI ppx. Disposition: Vascular Surgery re eval and further recommendations after discussion with patient and her family. Subjective 24 Hr Interval Summary Free Text/Dictation Patient post 2nd attempt at Angio, unsuccessful Dr Miller discussing alternative with patient and her family Exam/Review of Systems Vital Signs Vitals Vital Signs Date Time Temp Pulse Resp B/P Pulse Ox O2 Delivery O2 Flow Rate FiO2 06/26/16 08:19 97 Room Air 06/26/16 08:10 98.5 86 20 156/78 Intake and Output 06/25/16 06/25/16 06/26/16 15:00 23:00 07:00 Intake Total 520 ml 525 ml Output Total 200 ml 550 ml Balance -200 ml -30 ml 525 ml Exam Constitutional: alert, oriented, other (post procedure sleeping ), well developed Respiratory: clear to auscultation, normal air movement Cardiovascular: nl pulses, regular rate and rhythm Gastrointestinal: non-tender, soft Musculoskeletal: nl extremities to inspection Extremities: normal pulses, other (no edemal clubbing or cyanosis ) Neurological: PH[employer]IANS [employer] SURGEONS II-XII intact, other (limited exam, sleeping ) Results Result Diagram: 06/26/16 2650 06/26/16 0550 Results 24 hrs Laboratory Tests Test 06/25/16 17:13 06/26/16 02:08 06/26/16 05:50 06/26/16 07:43 Bedside Glucose 239 H 140 137 White Blood Count 10.4 # Red Blood Count 3.68 L Hemoglobin 10.9 L Hematocrit 33.2 L Mean Corpuscular Volume 90.2 Mean Corpuscular Hemoglobin 29.6 Mean Corpuscular Hemoglobin Concent 32.8 Red Cell Distribution Width 12.3 Platelet Count 266 Mean Platelet Volume 9.6 Neutrophils % 72.7 Lymphocytes % 11.7 L Monocytes % 13.2 H Eosinophils % 1.4 Basophils % 0.5 Nucleated Red Blood Cells % 0.0 Neutrophils # 7.6 H Lymphocytes # 1.2 Monocytes # 1.4 H Eosinophils # 0.2 Basophils # 0.1 Nucleated Red Blood Cells # 0.0 Sodium Level 134 L Potassium Level 3.9 Chloride Level 101 Carbon Dioxide Level 28 Anion Gap 9 Blood Urea Nitrogen 11 Creatinine 0.52 Glucose Level 149 Calcium Level 9.1 Phosphorus Level 3.8 Magnesium Level 1.5 L Medications Medications Current Medications Acetaminophen (Tylenol Tab) 650 mg Q4H PRN PO PAIN AND OR ELEVATED TEMP; Start 06/20/16 at 02:00 Morphine Sulfate (morphine) 4 mg Q4H PRN IV pain Last administered on 20:44; Admin Dose 4 MG; Start 06/20/16 at 02:00 Ondansetron HCl (Zofran Inj) 4 mg Q4H PRN IV NAUSEA AND/OR VOMITING Last administered on 06/23/16 08:45; Admin Dose 4 MG; Start 06/20/16 at 02:00 Hydralazine HCl (Apresoline) 25 mg Q6 PRN PO sbp>160; Start 06/20/16 at 02:00 Clopidogrel Bisulfate (plaVIX) 75 mg DAILY PO Last administered on 06/24/16 08 :16; Admin Dose 75 MG; Start 06/20/16 at 09:00 Gabapentin (Neurontin) 300 mg DAILY PO Last administered on 06/24/16 08:16; Admin Dose 300 MG; Start 06/20/16 at 09:00 Lisinopril (Zestril) 40 mg DAILY PRN PO ELEVATED BLOOD PRESSURE; Start at 02:00 Atorvastatin Calcium 10 mg 10 mg DAILY@21 PO Last administered on 06/25/16 20: 33; Admin Dose 10 MG; Start 06/20/16 at 21:00 Imipenem/ Cilastatin Sodium (Primaxin 250 Mg/ 100 ml (Pmx)) 100 ml @ 100 mls/ hr Q12 IVPB Last administered on 06/25/16 20:33; Admin Dose 100 MLS/HR; Start 06/20/16 at 14:30 Nicotine (Nicoderm 21 Mg/ 24hr) 1 patch DAILY TRANSDERM Last administered on 08:30; Admin Dose 1 PATCH; Start 06/20/16 at 13:30 Miscellaneous Information 1 ea NOTE XX ; Start 06/20/16 at 14:00 Glucose (Glutose) 15 gm Q15M PRN PO DECREASED GLUCOSE; Start 06/20/16 at 14:00 Glucose (Glutose) 22.5 gm Q15M PRN PO DECREASED GLUCOSE; Start 06/20/16 at 14: 00 Dextrose (D50w Syringe) 25 ml Q15M PRN IV DECREASED GLUCOSE Last administered on 06/20/16 19:19; Admin Dose 25 ML; Start 06/20/16 at 14:00 Dextrose (D50w Syringe) 50 ml Q15M PRN IV DECREASED GLUCOSE; Start 06/20/16 at 14:00 Glucagon (Glucagen) 1 mg Q15M PRN IM DECREASED GLUCOSE; Start 06/20/16 at 14:00 Glucose 15 gm 15 gm Q15M PRN BUCCAL DECREASED GLUCOSE; Start 06/20/16 at 14:00 Potassium Chloride/Sodium Chloride (KCl/NS) 1,020 ml @ 50 mls/hr [id number] IV Last administered on 06/25/16 17:15; Admin Dose 50 MLS/HR; Start 06/22/16 at 09 :00 Diagnostic Test (Pha) (Accu-Chek) 1 ea 02 XX Last administered on 06/26/16 02: 29; Admin Dose 1 EA; Start 06/22/16 at 16:00 Acetaminophen/ Hydrocodone Bitart ([place] (5/325)) 1 tab Q4H PRN PO pain Last administered on 06/25/16 14:44; Admin Dose 1 TAB; Start 06/23/16 at 17:30 Docusate Sodium (Colace) 100 mg BID PO Last administered on 06/25/16t 20:33; Admin Dose 100 MG; Start 06/24/16 at 21:00 NITIN ZEPEDA Jun 26, 2016 12:10
--- NOTE | 2016-06-26 12:21 | OPR ---
Date/Time of Note Date/Time of Note DATE: 06/26/16 TIME: 12:20 Operative Report Preoperative Diagnosis SMA Stenosis Postoperative Diagnosis same Operation Performed Aortogram, Left arm angiogram, Resection Right femoral pseudoaneurysm Surgeon: MALIA COLLAZO MD Econometrics Professor: URIAH LANDEROS MD Anesthesia: other Estimated Blood Loss: minimal Complications: None Pt Condition Post Procedure: stable Disposition: PACU MALIA COLLAZO MD Jun 26, 2016 12:21
[2016-06-26] MEDS ORDERED: CEFAZOLIN 1 GM INJ ONE (12:29)
[2016-06-26] MEDS ORDERED: ETOMIDATE 20 MG INJ ONE (12:29)
[2016-06-26] MEDS ORDERED: LIDOCAINE 2% (SDV) 5 ML INJ ONE (12:29)
[2016-06-26] MEDS ORDERED: MAGNESIUM SULFATE 2 GM/50 ML 50 ML IVPB ONE (12:30)
[2016-06-26] MEDS ORDERED: ONDANSETRON 4 MG INJ ONE (12:30)
[2016-06-26] MEDS: ONDANSETRON 4 MG INJ IV PRN (14:14)
--- NOTE | 2016-06-26 15:07 | RADRPT ---
PROCEDURE: Intraoperative imaging of the chest with fluoroscopy. CLINICAL INDICATION: Intraoperative. TECHNIQUE: Greater than 50 images of the chest were obtained in the operating room with an image i ntensifier. No radiologist was in attendance. 532 seconds of fluoroscopy time was used. COMPARISON: No prior study is available for comparison. FINDINGS: The first set of images demonstrate a catheter entering the left upper extremity and contrast inject ion into the left subclavian artery. The left subclavian artery is completely occluded at the origi n. The left vertebral artery appears patent. Subsequent images demonstrate contrast injected into the aortic arch via an inferior approach. The left subclavian artery is completely included at the origin. IMPRESSION: 1. Intraoperative imaging of the chest. 2. Completely occluded left subclavian artery. RPTAT: QQ .Johann Ramos MD, Date Time Electronically viewed and signed by .Johann Ramos MD, on 06/26/2016 15:07 .R/
[2016-06-26] MEDS: HYDROCODONE/APAP (5/325) TAB PO PRN ×2 (16:20→20:51)
[2016-06-26] MEDS: POTASSIUM CHLORIDE 40 MEQ in SOD CHLORIDE 0.9% 1,000 ML IV SCH (20:47)
[2016-06-26] MEDS: ATORVASTATIN 10 MG TAB PO SCH (20:48)
[2016-06-27] MEDS: ACCUCHECK 2 AM XX SCH (02:00)
[2016-06-27 06:32] LABS: ADD SCAN DIFF NO
[2016-06-27 06:45] LABS: ABNORMAL IP MESSAGE 1; BASOPHIL # 0.1 10^3/ul (0.0-0.1); BASOPHILS % 0.4 % (0.0-2.0); EOSINOPHILS # 0.1 10^3/ul (0.0-0.5); EOSINOPHILS % 0.5 % (0.0-7.0); HEMATOCRIT 31.8 % (37.0-47.0); HEMOGLOBIN 9.9 g/dl (12.0-16.0); LYMPHOCYTES # 1.2 10^3/ul (0.8-2.9); LYMPHOCYTES % 8.8 % (15.0-51.0); MEAN CORPUSCULAR HEMOGLOBIN 28.9 pg (29.0-33.0); MEAN CORPUSCULAR HGB CONC 31.1 g/dl (32.0-37.0); MEAN CORPUSCULAR VOLUME 92.7 fl (82.0-101.0); NEUTROPHIL # 10.6 10^3/ul (1.6-7.5); NEUTROPHILS % 75.5 % (39.0-77.0); PLATELET COUNT 293 10^3/UL (140-415); RED BLOOD COUNT 3.43 10^6/ul (4.20-5.40); RED CELL DISTRIBUTION WIDTH 12.8 % (11.5-14.5); WHITE BLOOD COUNT 14.1 10^3/ul (4.8-10.8)
[2016-06-27 06:53] LABS: CALCIUM 8.7 mg/dl (8.4-10.2); CREATININE 0.48 mg/dl (0.44-1.00); POTASSIUM 4.1 mmol/L (3.5-5.1)
[2016-06-27 07:00] LABS: MAGNESIUM 1.6 mg/dl (1.7-2.5); PHOSPHORUS 3.5 mg/dl (2.5-4.9)
[2016-06-27 07:02] LABS: MONOCYTES % 14.3 % (0.0-11.0)
--- NOTE | 2016-06-27 07:09 | OPR ---
DATE OF OPERATION: PREOPERATIVE DIAGNOSIS: Superior mesenteric artery stenosis. POSTOPERATIVE DIAGNOSIS: Superior mesenteric artery stenosis. OPERATION PERFORMED: 1. Resection of the right femoral artery pseudoaneurysm. 2. Left arm axillary artery cutdown. 3. Left arm angiogram. 4. Interpretation and supervision of the angiogram. 5. Catheter introduction into the ascending aorta. 6. Cerebral angiogram. 7. Interpretation and supervision of left cerebral angiogram. 8. Fluoroscopy. SURGEON: Malia James MD WEB SITE ADMINISTRATOR: Sergio Martino MD CONSENT: Risks, benefits, complications, alternative therapies explained to the patient and the [facility] sigifredo, consent obtained. INDICATIONS: This is a patient who has severe stenosis of the SMA, had undergone an angiogram. How ever, because of acute angulation of the origin of the SMA, we were unable to put a stent into the S MA. I had a long discussion with the patient's family. We decided to proceed with cannulation to t he left arm. OPERATIVE TECHNIQUE: The patient was taken to the operating room. After induction of general anest hesia, prepped and draped in usual sterile fashion. At this time, I made a 2 cm incision, left arm in the axilla. Brachial artery was identified. Vesseloops were passed around it. It was then mago ulated using micropuncture. Guidewire was advanced through without any difficulties, and a 5-Tuvaluan sheath was advanced over guidewire. We could not advance the guidewire past the origin of the subc lavian artery. 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 At this time, we had noticed pseudoaneurysm in the right groin. A 4 cm incision was made i n the right groin. Incision was taken down to subcutaneous tissue. Femoral artery was identified. The pseudoaneurysm was resected and repaired using 6-0 Prolene in a [id number] fashion. The right common femoral artery was cannulated using Seldinger technique, and a 5-Tuvaluan catheter wa s advanced over a guidewire. A pigtail catheter was advanced all the way into the ascending aorta. Angiogram was done which showed right innominate open, right subclavian open, right carotid open, l eft carotid closed 100% and left subclavian artery completely closed. At this time, I scrubbed out. I had a discussion with the family. I explained to them that our opt ions are either going through the right subclavian vein which has a steep curvature going retrograde , and since we are going to be manipulating the arch of the aorta using long sheaths and catheter, t here is a chance of a stroke versus the second option would be an open abdominal incision with bypas s surgery to the SMA. They told me that they wanted to think about this and talk to the patient. A t this time, the procedure was terminated. The cannula was removed from the left brachial artery, a nd the brachial artery was repaired using interrupted 6-0 Prolenes. The cannula was removed from th e right femoral artery, and the femoral artery was closed using interrupted 6-0 Prolene sutures. Corwin th wounds were then re-irrigated and closed in 2 layers of 2-0 Vicryl suture for the deep and 3-0 Vi cryl suture for running subcuticular skin closure. The patient tolerated procedure well. Dictated By: MALIA BUTLER/MARIBELL Conf#: [id number] DID#: [id number]
[2016-06-27 07:56] VITALS: BP 116/59; RESP 19
[2016-06-27] MEDS: IMIPENEM-CILAST 250MG IV (PMX) 100 ML IVPB SCH ×2 (07:58→21:12)
[2016-06-27] MEDS: CLOPIDOGREL 75 MG TAB PO SCH (07:58)
[2016-06-27] MEDS: GABAPENTIN 300 MG CAP PO SCH (07:58)
[2016-06-27] MEDS: INSULIN ASPART [NOVOLOG] 3 ML PEN SC SCH ×5 (08:09→21:00)
[2016-06-27] MEDS: DOCUSATE SODIUM 100 MG CAP PO SCH ×2 (08:10→21:13)
[2016-06-27] MEDS: NICOTINE (21 MG/24 HR) PATCH TRANSDERM SCH (08:15)
[2016-06-27] MEDS ORDERED: MAGNESIUM SULFATE 2 GM/50 ML 50 ML IVPB ONE (10:30)
[2016-06-27] MEDS: HYDROCODONE/APAP (5/325) TAB PO PRN (10:30)
--- NOTE | 2016-06-27 14:42 | PN ---
Date/Time of Note Date/Time of Note DATE: 06/27/16 TIME: 14:29 Assessment/Plan VTE Prophylaxis VTE Prophylaxis Intervention: SCD's Lines/Catheters IV C[facility]ter Type (from [facility] Peripheral IV Urinary Cath still in place: No Assessment/Plan Assessment/Plan 80 yo female with: 1. 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 CT abdo/pelvis here with high-grade stenosis of the SMA. Appreciate Cardiology eval from Dr Brannon, stress test negative last week Dr. James has attempted stenting of SMA again today going through subclavian but unsuccessful due to severe PVD and chronic obstruction, angio revealed severe PAD/PVD with chronic obstructions Dr Etienne still discussing alternative minimally invasive approach vs surgery with patient and her family as risks higher Continue Plavix 2. Leukocytosis, almost certainly related to gastrointestinal complaint and possible ischemic colitis/mesenteric ischemia. Resolved. On Imipenem 3. Severe peripheral vascular disease. Continue secondary prevention. On Plavix 4. Chronic obstructive pulmonary disease, with known tobacco use. Respiratory status stable so far. Nebs prn. 5. Tobacco abuse, cessation is counseled. Nicotine patch Prophylaxis: Lovenox treatment dose and PPI with GI ppx. Disposition: Vascular Surgery re eval and further recommendations after discussion with patient and her family. Subjective 24 Hr Interval Summary Free Text/Dictation Patient remains stable Awaiting decision re next procedure vs discharge back to [facility] Exam/Review of Systems Vital Signs Vitals Vital Signs Date Time Temp Pulse Resp B/P Pulse Ox O2 Delivery O2 Flow Rate FiO2 06/27/16 07:56 98.7 84 19 116/59 97 06/26/16 16:47 Nasal Cannula 3.0 Intake and Output 06/26/16 06/26/16 06/27/16 15:00 23:00 07:00 Intake Total 1600 ml 545 ml 350 ml Output Total 2450 ml 250 ml 750 ml Balance -850 ml 295 ml -400 ml Exam Constitutional: alert, oriented, well developed Respiratory: clear to auscultation, normal air movement Cardiovascular: nl pulses, regular rate and rhythm Gastrointestinal: soft, tender (diffuse tenderness ) Musculoskeletal: nl extremities to inspection Extremities: normal pulses, other (no edema, clubbing or cyanosis ) Neurological: 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 II-XII intact, nl mental status, nl speech, other ( generalised weakness ) Results Result Diagram: 06/27/16 0538 06/27/16 0538 Results 24 hrs Laboratory Tests Test 06/26/16 17:10 06/27/16 02:34 06/27/16 05:38 06/27/16 07:44 Bedside Glucose 155 158 173 White Blood Count 14.1 #H Red Blood Count 3.43 L Hemoglobin 9.9 L Hematocrit 31.8 L Mean Corpuscular Volume 92.7 Mean Corpuscular Hemoglobin 28.9 L Mean Corpuscular Hemoglobin Concent 31.1 L Red Cell Distribution Width 12.8 Platelet Count 293 Mean Platelet Volume 10.0 Neutrophils % 75.5 Lymphocytes % 8.8 L Monocytes % 14.3 H Eosinophils % 0.5 Basophils % 0.4 Nucleated Red Blood Cells % 0.0 Neutrophils # 10.6 H Lymphocytes # 1.2 Monocytes # 2.0 H Eosinophils # 0.1 Basophils # 0.1 Nucleated Red Blood Cells # 0.0 Sodium Level 134 L Potassium Level 4.1 Chloride Level 102 Carbon Dioxide Level 27 Anion Gap 9 Blood Urea Nitrogen 11 Creatinine 0.48 Glucose Level 147 Calcium Level 8.7 Phosphorus Level 3.5 Magnesium Level 1.6 L Test 06/27/16 11:59 Bedside Glucose 208 Medications Medications Current Medications Acetaminophen (Tylenol Tab) 650 mg Q4H PRN PO PAIN AND OR ELEVATED TEMP; Start 06/20/16 at 02:00 Morphine Sulfate (morphine) 4 mg Q4H PRN IV pain Last administered on 20:44; Admin Dose 4 MG; Start 06/20/16 at 02:00 Ondansetron HCl (Zofran Inj) 4 mg Q4H PRN IV NAUSEA AND/OR VOMITING Last administered on 06/26/16 14:14; Admin Dose 4 MG; Start 06/20/16 at 02:00 Hydralazine HCl (Apresoline) 25 mg Q6 PRN PO sbp>160; Start 06/20/16 at 02:00 Clopidogrel Bisulfate (plaVIX) 75 mg DAILY PO Last administered on 06/27/16 07 :58; Admin Dose 75 MG; Start 06/20/16 at 09:00 Gabapentin (Neurontin) 300 mg DAILY PO Last administered on 06/27/16 07:58; Admin Dose 300 MG; Start 06/20/16 at 09:00 Lisinopril (Zestril) 40 mg DAILY PRN PO ELEVATED BLOOD PRESSURE; Start at 02:00 Atorvastatin Calcium 10 mg 10 mg DAILY@21 PO Last administered on 06/26/16 20: 48; Admin Dose 10 MG; Start 06/20/16 at 21:00 Imipenem/ Cilastatin Sodium (Primaxin 250 Mg/ 100 ml (Pmx)) 100 ml @ 100 mls/ hr Q12 IVPB Last administered on 06/27/16 07:58; Admin Dose 100 MLS/HR; Start 06/20/16 at 14:30 Nicotine (Nicoderm 21 Mg/ 24hr) 1 patch DAILY TRANSDERM Last administered on 08:15; Admin Dose 1 PATCH; Start 06/20/16 at 13:30 Miscellaneous Information 1 ea NOTE XX ; Start 06/20/16 at 14:00 Glucose (Glutose) 15 gm Q15M PRN PO DECREASED GLUCOSE; Start 06/20/16 at 14:00 Glucose (Glutose) 22.5 gm Q15M PRN PO DECREASED GLUCOSE; Start 06/20/16 at 14: 00 Dextrose (D50w Syringe) 25 ml Q15M PRN IV DECREASED GLUCOSE Last administered on 06/20/16 19:19; Admin Dose 25 ML; Start 06/20/16 at 14:00 Dextrose (D50w Syringe) 50 ml Q15M PRN IV DECREASED GLUCOSE; Start 06/20/16 at 14:00 Glucagon (Glucagen) 1 mg Q15M PRN IM DECREASED GLUCOSE; Start 06/20/16 at 14:00 Glucose 15 gm 15 gm Q15M PRN BUCCAL DECREASED GLUCOSE; Start 06/20/16 at 14:00 Potassium Chloride/Sodium Chloride (KCl/NS) 1,020 ml @ 50 mls/hr [id number] IV Last administered on 06/26/16 20:47; Admin Dose 50 MLS/HR; Start 06/22/16 at 09 :00 Diagnostic Test (Pha) (Accu-Chek) 1 ea 02 XX Last administered on 06/26/16 02: 29; Admin Dose 1 EA; Start 06/22/16 at 16:00 Acetaminophen/ Hydrocodone Bitart ([place] (5/325)) 1 tab Q4H PRN PO pain Last administered on 06/27/16 10:30; Admin Dose 1 TAB; Start 06/23/16 at 17:30 Docusate Sodium (Colace) 100 mg BID PO Last administered on 06/25/16 20:33; Admin Dose 100 MG; Start 06/24/16 at 21:00 Procedures Procedures DATE OF OPERATION: PREOPERATIVE DIAGNOSIS: Superior mesenteric artery stenosis. POSTOPERATIVE DIAGNOSIS: Superior mesenteric artery stenosis. OPERATION PERFORMED: 1. Resection of the right femoral artery pseudoaneurysm. 2. Left arm axillary artery cutdown. 3. Left arm angiogram. 4. Interpretation and supervision of the angiogram. 5. Catheter introduction into the ascending aorta. 6. Cerebral angiogram. 7. Interpretation and supervision of left cerebral angiogram. 8. Fluoroscopy. SURGEON: Daniel James MD HOGSHEAD MAT INSPECTOR: Sergio Martino MD CONSENT: Risks, benefits, complications, alternative therapies explained to the patient and the family, consent obtained. INDICATIONS: This is a patient who has severe stenosis of the SMA, had undergone an angiogram. However, because of acute angulation of the origin of the SMA, we were unable to put a stent into the SMA. I had a long discussion with the patient's family. We decided to proceed with cannulation to the left arm. OPERATIVE TECHNIQUE: The patient was taken to the operating room. After induction of general anesthesia, prepped and draped in usual sterile fashion. At this time, I made a 2 cm incision, left arm in the axilla. Brachial artery was identified. Vesseloops were passed around it. It was then cannulated using micropuncture. Guidewire was advanced through without any difficulties, and a 5-[place] sheath was advanced over guidewire. We could not advance the guidewire past the origin of the subclavian artery. 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 At this time, we had noticed pseudoaneurysm in the right groin. A 4 cm incision was made in the right groin. Incision was taken down to subcutaneous tissue. Femoral artery was identified. The pseudoaneurysm was resected and repaired using 6-0 Prolene in a [id number] fashion. The right common femoral artery was cannulated using Seldinger technique, and a 5-Q[place]ari catheter was advanced over a guidewire. A pigtail catheter was advanced all the way into the ascending aorta. Angiogram was done which showed right innominate open, right subclavian open, right carotid open, left carotid closed 100% and left subclavian artery completely closed. At this time, I scrubbed out. I had a discussion with the family. I explained to them that our options are either going through the right subclavian vein which has a steep curvature going retrograde, and since we are going to be manipulating the arch of the aorta using long sheaths and catheter, there is a chance of a stroke versus the second option would be an open abdominal incision with bypass surgery to the SMA. They told me that they wanted to think about this and talk to the patient. At this time, the procedure was terminated. The cannula was removed from the left brachial artery, and the brachial artery was repaired using interrupted 6-0 Prolenes. The cannula was removed from the right femoral artery, and the femoral artery was closed using interrupted 6-0 Prolene sutures. Both wounds were then re-irrigated and closed in 2 layers of 2 -0 Vicryl suture for the deep and 3-0 Vicryl suture for running subcuticular skin closure. The patient tolerated procedure well. NITIN ZEPEDA Jun 27, 2016 14:39
--- NOTE | 2016-06-27 15:43 | CONS ---
Date/Time of Note Date/Time of Note DATE: 06/27/16 TIME: 15:40 Assessment/Plan Assessment/Plan Chief Complaint/Hosp Course IMPRESSION: 1. Preoperative evaluation prior to treatment for likely ischemic bowel.- negative troponin x 3/NL EF by echo this admit. Lexiscan negative for ischemia with NL EF 06/21/16. Now s/p alternative approach attempt in OR unsuccessful due to scl stenosis 2. History of myocardial infarction. 3. Abnormal electrocardiogram, with biphasic inferior T-wave abnormalities. 4. Hypertension, borderline. 5. Dyslipidemia. 6. Ongoing tobacco usage. 7. Ischemic bowel. 8. Poor p.o. intake secondary to ischemic bowel, with subsequent weight loss. 9. Hyponatremia. Recc: -Continue zestril -Continue statin -Continue plavix -Vascular surgery discussing alternative approaches with family Problems: Consultation Date/Type/Reason Admit Date/Time Jun 20, 2016 at 15:01 Initial Consult Date 06/21/2016 Type of Consultation: Cardiology Reason for Consultation preop Referring Provider: NITIN ZEPEDA Exam/Review of Systems Vital Signs Vitals Vital Signs Date Time Temp Pulse Resp B/P Pulse Ox O2 Delivery O2 Flow Rate FiO2 06/27/16 07:56 98.7 84 19 116/59 97 06/26/16 16:47 Nasal Cannula 3.0 Intake and Output 06/26/16 06/26/16 06/27/16 15:00 23:00 07:00 Intake Total 1600 ml 545 ml 350 ml Output Total 2450 ml 250 ml 750 ml Balance -850 ml 295 ml -400 ml Exam Review of Systems: CONSTITUTIONAL: No fevers, chills. PULMONARY: No sob CARDIOVASCULAR: No chest pain/palpitations GASTROINTESTINAL: mild abd pain GENITOURINARY: No hematuria/dysuria. MUSCULOSKELETAL: No myagias/arthalgias. PSYCHIATRIC: The patient denies depression. NEUROLOGIC: No weakness Constitutional: alert Psych: no complaints Head: normocephalic ENMT: mucosa pink and moist Neck: jvd (8 cmn water), supple Respiratory: diminished breath sounds (at bases/B) Cardiovascular: regular rate and rhythm Gastrointestinal: non-tender, soft Musculoskeletal: muscle tone (normal) Extremities: edema (none) Results Result Diagram: 06/27/16 0538 06/27/16 0538 Results 24 hrs Laboratory Tests Test 06/26/16 17:10 06/27/16 02:34 06/27/16 05:38 06/27/16 07:44 Bedside Glucose 155 158 173 White Blood Count 14.1 #H Red Blood Count 3.43 L Hemoglobin 9.9 L Hematocrit 31.8 L Mean Corpuscular Volume 92.7 Mean Corpuscular Hemoglobin 28.9 L Mean Corpuscular Hemoglobin Concent 31.1 L Red Cell Distribution Width 12.8 Platelet Count 293 Mean Platelet Volume 10.0 Neutrophils % 75.5 Lymphocytes % 8.8 L Monocytes % 14.3 H Eosinophils % 0.5 Basophils % 0.4 Nucleated Red Blood Cells % 0.0 Neutrophils # 10.6 H Lymphocytes # 1.2 Monocytes # 2.0 H Eosinophils # 0.1 Basophils # 0.1 Nucleated Red Blood Cells # 0.0 Sodium Level 134 L Potassium Level 4.1 Chloride Level 102 Carbon Dioxide Level 27 Anion Gap 9 Blood Urea Nitrogen 11 Creatinine 0.48 Glucose Level 147 Calcium Level 8.7 Phosphorus Level 3.5 Magnesium Level 1.6 L Test 06/27/16 11:59 Bedside Glucose 208 Medications Medications Current Medications Acetaminophen (Tylenol Tab) 650 mg Q4H PRN PO PAIN AND OR ELEVATED TEMP; Start 06/20/16 at 02:00 Morphine Sulfate (morphine) 4 mg Q4H PRN IV pain Last administered on 20:44; Admin Dose 4 MG; Start 06/20/16 at 02:00 Ondansetron HCl (Zofran Inj) 4 mg Q4H PRN IV NAUSEA AND/OR VOMITING Last administered on 06/26/16 14:14; Admin Dose 4 MG; Start 06/20/16 at 02:00 Hydralazine HCl (Apresoline) 25 mg Q6 PRN PO sbp>160; Start 06/20/16 at 02:00 Clopidogrel Bisulfate (plaVIX) 75 mg DAILY PO Last administered on 06/27/16 07 :58; Admin Dose 75 MG; Start 06/20/16 at 09:00 Gabapentin (Neurontin) 300 mg DAILY PO Last administered on 06/27/16 07:58; Admin Dose 300 MG; Start 06/20/16 at 09:00 Lisinopril (Zestril) 40 mg DAILY PRN PO ELEVATED BLOOD PRESSURE; Start at 02:00 Atorvastatin Calcium 10 mg 10 mg DAILY@21 PO Last administered on 06/26/16 20: 48; Admin Dose 10 MG; Start 06/20/16 at 21:00 Imipenem/ Cilastatin Sodium (Primaxin 250 Mg/ 100 ml (Pmx)) 100 ml @ 100 mls/ hr Q12 IVPB Last administered on 06/27/16 07:58; Admin Dose 100 MLS/HR; Start 06/20/16 at 14:30 Nicotine (Nicoderm 21 Mg/ 24hr) 1 patch DAILY TRANSDERM Last administered on 08:15; Admin Dose 1 PATCH; Start 06/20/16 at 13:30 Miscellaneous Information 1 ea NOTE XX ; Start 06/20/16 at 14:00 Glucose (Glutose) 15 gm Q15M PRN PO DECREASED GLUCOSE; Start 06/20/16 at 14:00 Glucose (Glutose) 22.5 gm Q15M PRN PO DECREASED GLUCOSE; Start 06/20/16 at 14: 00 Dextrose (D50w Syringe) 25 ml Q15M PRN IV DECREASED GLUCOSE Last administered on 06/20/16 19:19; Admin Dose 25 ML; Start 06/20/16 at 14:00 Dextrose (D50w Syringe) 50 ml Q15M PRN IV DECREASED GLUCOSE; Start 06/20/16 at 14:00 Glucagon (Glucagen) 1 mg Q15M PRN IM DECREASED GLUCOSE; Start 06/20/16 at 14:00 Glucose 15 gm 15 gm Q15M PRN BUCCAL DECREASED GLUCOSE; Start 06/20/16 at 14:00 Potassium Chloride/Sodium Chloride (KCl/NS) 1,020 ml @ 50 mls/hr [id number] IV Last administered on 06/26/16 20:47; Admin Dose 50 MLS/HR; Start 06/22/16 at 09 :00 Acetaminophen/ Hydrocodone Bitart ([place] (5/325)) 1 tab Q4H PRN PO pain Last administered on 06/27/16 10:30; Admin Dose 1 TAB; Start 06/23/16 at 17:30 Docusate Sodium (Colace) 100 mg BID PO Last administered on 06/25/16 20:33; Admin Dose 100 MG; Start 06/24/16 at 21:00 Diagnostic Test (Pha) (Accu-Chek) 1 ea 02 XX ; Start 06/28/16 at 02:00 BALDO VASQUES Jun 27, 2016 15:43
--- NOTE | 2016-06-27 18:39 | PN ---
Date/Time of Note Date/Time of Note DATE: 06/27/16 TIME: 18:37 Assessment/Plan Lines/Catheters IV Catheter Type (from Nrs): Peripheral IV Hansen in Place (from Nrs): No Assessment/Plan Chief Complaint/Hosp Course RECOMMENDATIONS: The patient will need an angiogram, possible angioplasty. However, she is at high risk of dissection secondary to high calcification. RECOMMENDATIONS: SMA Stenosis Occlusion Left SCA and Carotid artery options are to cannulate the Right SCA which carries a risk of CVA Family aware and aGREE Plan for SMA Angioplasty and stent placement in the OR . Discussed with the patient. Problems: Subjective 24 Hr Interval Summary Constitutional: improved Pain Control: mild Exam/Review of Systems Vital Signs Vitals Vital Signs Date Time Temp Pulse Resp B/P Pulse Ox O2 Delivery O2 Flow Rate FiO2 06/27/16 07:56 98.7 84 19 116/59 97 06/26/16 16:47 Nasal Cannula 3.0 Intake and Output 06/26/16 06/26/16 06/27/16 15:00 23:00 07:00 Intake Total 1600 ml 545 ml 350 ml Output Total 2450 ml 250 ml 750 ml Balance -850 ml 295 ml -400 ml Exam Neck: non-tender, supple Respiratory: clear to auscultation, normal air movement Cardiovascular: nl pulses, regular rate and rhythm Results Result Diagram: 06/27/16 0538 06/27/16 0538 MALIA COLLAZO MD Jun 27, 2016 18:39
[2016-06-27] MEDS: ATORVASTATIN 10 MG TAB PO SCH (21:12)
[2016-06-27 22:08] VITALS: BP 120/58; RESP 20
[2016-06-27] MEDS: POTASSIUM CHLORIDE 40 MEQ in SOD CHLORIDE 0.9% 1,000 ML IV SCH (22:12)
[2016-06-28] MEDS: HYDROCODONE/APAP (5/325) TAB PO PRN ×2 (01:09→23:46)
[2016-06-28] MEDS: ACCU-CHEK XX SCH (01:23)
[2016-06-28] MEDS: POTASSIUM CHLORIDE 40 MEQ in SOD CHLORIDE 0.9% 1,000 ML IV SCH (03:20)
[2016-06-28 05:55] LABS: ADD SCAN DIFF NO
[2016-06-28 06:19] LABS: BASOPHIL # 0.1 10^3/ul (0.0-0.1); BASOPHILS % 0.5 % (0.0-2.0); EOSINOPHILS # 0.1 10^3/ul (0.0-0.5); EOSINOPHILS % 1.2 % (0.0-7.0); HEMATOCRIT 30.8 % (37.0-47.0); HEMOGLOBIN 9.7 g/dl (12.0-16.0); LYMPHOCYTES # 1.6 10^3/ul (0.8-2.9); MEAN CORPUSCULAR HEMOGLOBIN 29.4 pg (29.0-33.0); MEAN CORPUSCULAR HGB CONC 31.5 g/dl (32.0-37.0); MEAN CORPUSCULAR VOLUME 93.3 fl (82.0-101.0); MEAN PLATELET VOLUME 9.7 fl (7.4-10.4); MONOCYTE # 1.3 10^3/ul (0.3-0.9); MONOCYTES % 12.7 % (0.0-11.0); NEUTROPHIL # 7.3 10^3/ul (1.6-7.5); NEUTROPHILS % 69.9 % (39.0-77.0); PLATELET COUNT 320 10^3/UL (140-415); RED CELL DISTRIBUTION WIDTH 12.8 % (11.5-14.5); WHITE BLOOD COUNT 10.4 10^3/ul (4.8-10.8)
[2016-06-28 06:25] LABS: POTASSIUM 4.4 mmol/L (3.5-5.1)
[2016-06-28 06:28] LABS: CREATININE 0.51 mg/dl (0.44-1.00)
[2016-06-28 06:29] LABS: CALCIUM 8.9 mg/dl (8.4-10.2)
[2016-06-28 06:46] LABS: PHOSPHORUS 2.7 mg/dl (2.5-4.9)
[2016-06-28] MEDS: INSULIN ASPART [NOVOLOG] 3 ML PEN SC SCH ×7 (08:06→20:55)
[2016-06-28 08:51] VITALS: BP 149/73; RESP 16
[2016-06-28] MEDS: NICOTINE (21 MG/24 HR) PATCH TRANSDERM SCH (09:20)
[2016-06-28] MEDS: DOCUSATE SODIUM 100 MG CAP PO SCH ×2 (09:20→20:54)
[2016-06-28] MEDS: GABAPENTIN 300 MG CAP PO SCH (09:20)
[2016-06-28] MEDS: IMIPENEM-CILAST 250MG IV (PMX) 100 ML IVPB SCH ×2 (09:20→20:55)
[2016-06-28] MEDS: CLOPIDOGREL 75 MG TAB PO SCH (09:20)
--- NOTE | 2016-06-28 10:28 | PN ---
Date/Time of Note Date/Time of Note DATE: 06/28/16 TIME: 10:04 Assessment/Plan VTE Prophylaxis VTE Prophylaxis Intervention: SCD's Lines/Catheters IV [facility] Peripheral IV Urinary Cath still in place: No Assessment/Plan Assessment/Plan 80 yo female with: 1. 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 CT abdo/pelvis here with high-grade stenosis of the SMA. 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 Continue Plavix for now 2. Leukocytosis, almost certainly related to gastrointestinal complaint and possible ischemic colitis/mesenteric ischemia. Resolved. On Imipenem 3. Severe peripheral vascular disease. Continue secondary prevention, Plavix 4. Chronic obstructive pulmonary disease, with known tobacco use. Respiratory status stable so far. Nebs prn. 5. Tobacco abuse, cessation is counseled. Nicotine patch Prophylaxis: SCDs and PPI with GI ppx. Disposition: Awaiting Vascular Surgery and family decision which seems to be to proceed with access through right SCA. Further recommendations after discussion between patient, Vascular surgery and her family. Subjective 24 Hr Interval Summary Free Text/Dictation Patient remains stable and awaiting 3rd attempt at SMA stenting at this point to be attempted through right SCA Dr Miller has discussed with Family and patient per his note on 06/27 and all in agreement, OR scheduling pending tentatively for tomorrow per Dr Miller's note but this AM patient claims no decision has been made yet and she has yet to speak to her family and "the doctor" .... Exam/Review of Systems Vital Signs Vitals Vital Signs Date Time Temp Pulse Resp B/P Pulse Ox O2 Delivery O2 Flow Rate FiO2 06/28/16 08:51 98.1 73 16 149/73 96 06/26/16 16:47 Nasal Cannula 3.0 Intake and Output 06/27/16 06/27/16 06/28/16 15:00 23:00 07:00 Intake Total 1590 ml 1510 ml Output Total 450 ml 700 ml Balance 1140 ml 810 ml Exam Constitutional: alert, frail, oriented Respiratory: clear to auscultation, normal air movement Cardiovascular: nl pulses, regular rate and rhythm Gastrointestinal: non-tender, soft Musculoskeletal: nl extremities to inspection Extremities: normal pulses Neurological: [employer] II-XII intact, nl mental status, nl speech Results Result Diagram: 06/28/16 0520 06/28/16 0520 Results 24 hrs Laboratory Tests Test 06/27/16 11:59 06/27/16 16:59 06/27/16 21:02 06/28/16 05:20 Bedside Glucose 208 139 175 White Blood Count 10.4 # Red Blood Count 3.30 L Hemoglobin 9.7 L Hematocrit 30.8 L Mean Corpuscular Volume 93.3 Mean Corpuscular Hemoglobin 29.4 Mean Corpuscular Hemoglobin Concent 31.5 L Red Cell Distribution Width 12.8 Platelet Count 320 Mean Platelet Volume 9.7 Neutrophils % 69.9 Lymphocytes % 15.0 Monocytes % 12.7 H Eosinophils % 1.2 Basophils % 0.5 Nucleated Red Blood Cells % 0.0 Neutrophils # 7.3 Lymphocytes # 1.6 Monocytes # 1.3 H Eosinophils # 0.1 Basophils # 0.1 Nucleated Red Blood Cells # 0.0 Sodium Level 135 Potassium Level 4.4 Chloride Level 101 Carbon Dioxide Level 27 Anion Gap 11 Blood Urea Nitrogen 9 Creatinine 0.51 Glucose Level 143 Calcium Level 8.9 Phosphorus Level 2.7 Magnesium Level 2.0 Test 06/28/16 08:00 Bedside Glucose 135 Medications Medications Current Medications Acetaminophen (Tylenol Tab) 650 mg Q4H PRN PO PAIN AND OR ELEVATED TEMP; Start 06/20/16 at 02:00 Morphine Sulfate (morphine) 4 mg Q4H PRN IV pain Last administered on 20:44; Admin Dose 4 MG; Start 06/20/16 at 02:00 Ondansetron HCl (Zofran Inj) 4 mg Q4H PRN IV NAUSEA AND/OR VOMITING Last administered on 06/26/16 14:14; Admin Dose 4 MG; Start 06/20/16 at 02:00 Hydralazine HCl (Apresoline) 25 mg Q6 PRN PO sbp>160; Start 06/20/16 at 02:00 Clopidogrel Bisulfate (plaVIX) 75 mg DAILY PO Last administered on 06/28/16 09 :20; Admin Dose 75 MG; Start 06/20/16 at 09:00 Gabapentin (Neurontin) 300 mg DAILY PO Last administered on 06/28/16 09:20; Admin Dose 300 MG; Start 06/20/16 at 09:00 Lisinopril (Zestril) 40 mg DAILY PRN PO ELEVATED BLOOD PRESSURE; Start at 02:00 Atorvastatin Calcium 10 mg 10 mg DAILY@21 PO Last administered on 06/27/16 21: 12; Admin Dose 10 MG; Start 06/20/16 at 21:00 Imipenem/ Cilastatin Sodium (Primaxin 250 Mg/ 100 ml (Pmx)) 100 ml @ 100 mls/ hr Q12 IVPB Last administered on 06/28/16 09:20; Admin Dose 100 MLS/HR; Start 06/20/16 at 14:30 Nicotine (Nicoderm 21 Mg/ 24hr) 1 patch DAILY TRANSDERM Last administered on 09:20; Admin Dose 1 PATCH; Start 06/20/16 at 13:30 Miscellaneous Information 1 ea NOTE XX ; Start 06/20/16 at 14:00 Glucose (Glutose) 15 gm Q15M PRN PO DECREASED GLUCOSE; Start 06/20/16 at 14:00 Glucose (Glutose) 22.5 gm Q15M PRN PO DECREASED GLUCOSE; Start 06/20/16 at 14: 00 Dextrose (D50w Syringe) 25 ml Q15M PRN IV DECREASED GLUCOSE Last administered on 06/20/16 19:19; Admin Dose 25 ML; Start 06/20/16 at 14:00 Dextrose (D50w Syringe) 50 ml Q15M PRN IV DECREASED GLUCOSE; Start 06/20/16 at 14:00 Glucagon (Glucagen) 1 mg Q15M PRN IM DECREASED GLUCOSE; Start 06/20/16 at 14:00 Glucose 15 gm 15 gm Q15M PRN BUCCAL DECREASED GLUCOSE; Start 06/20/16 at 14:00 Potassium Chloride/Sodium Chloride (KCl/NS) 1,020 ml @ 50 mls/hr [id number] IV Last administered on 06/28/16 03:20; Admin Dose 50 MLS/HR; Start 4/14/17 at 09 :00 Acetaminophen/ Hydrocodone Bitart ([place] (5/325)) 1 tab Q4H PRN PO pain Last administered on 06/28/16 01:09; Admin Dose 1 TAB; Start 06/23/16 at 17:30 Docusate Sodium (Colace) 100 mg BID PO Last administered on 06/28/16 09:20; Admin Dose 100 MG; Start 06/24/16 at 21:00 Diagnostic Test (Pha) (Accu-Chek) 1 XX ; Start 06/28/16 at 02:00 NITIN ZEPEDA Jun 28, 2016 10:14
--- NOTE | 2016-06-28 12:07 | CONS ---
Date/Time of Note Date/Time of Note DATE: 06/28/16 TIME: 12:05 Assessment/Plan Assessment/Plan Chief Complaint/Hosp Course IMPRESSION: 1. Preoperative evaluation prior to treatment for likely ischemic bowel.- negative troponin x 3/NL EF by echo this admit. Lexiscan negative for ischemia with NL EF 06/21/16. Now s/p alternative approach attempt in OR unsuccessful due to subclavian stenosis 2. History of myocardial infarction. 3. Abnormal electrocardiogram, with biphasic inferior T-wave abnormalities. 4. Hypertension, borderline. 5. Dyslipidemia. 6. Ongoing tobacco usage. 7. Ischemic bowel. 8. Poor p.o. intake secondary to ischemic bowel, with subsequent weight loss. 9. Hyponatremia. Recc: -Continue zestril -Continue statin -Continue plavix -Vascular surgery discussing alternative approaches with family Problems: Consultation Date/Type/Reason Admit Date/Time Jun 20, 2016 at 15:01 Initial Consult Date 06/21/2016 Type of Consultation: Cardiology Reason for Consultation preop Referring Provider: NITIN ZEPEDA Exam/Review of Systems Vital Signs Vitals Vital Signs Date Time Temp Pulse Resp B/P Pulse Ox O2 Delivery O2 Flow Rate FiO2 06/28/16 08:51 98.1 73 16 149/73 96 06/26/16 16:47 Nasal Cannula 3.0 Intake and Output 06/27/16 06/27/16 06/28/16 14:59 22:59 06:59 Intake Total 1590 ml 1510 ml Output Total 450 ml 700 ml Balance 1140 ml 810 ml Exam Review of Systems: CONSTITUTIONAL: No fevers, chills. PULMONARY: No sob CARDIOVASCULAR: No chest pain/palpitations GASTROINTESTINAL: No nausea/vomiting. GENITOURINARY: No hematuria/dysuria. MUSCULOSKELETAL: No myagias/arthalgias. PSYCHIATRIC: The patient denies depression. NEUROLOGIC: No weakness Constitutional: alert Psych: no complaints Head: normocephalic ENMT: mucosa pink and moist Neck: jvd (8 cm water), supple Respiratory: diminished breath sounds (at bases/B) Cardiovascular: regular rate and rhythm Gastrointestinal: non-tender, soft Musculoskeletal: muscle tone Extremities: edema (none) Results Result Diagram: 06/28/16 0520 06/28/16 0520 Results 24 hrs Laboratory Tests Test 06/27/16 16:59 06/27/16 21:02 06/28/16 05:20 06/28/16 08:00 Bedside Glucose 139 175 135 White Blood Count 10.4 # Red Blood Count 3.30 L Hemoglobin 9.7 L Hematocrit 30.8 L Mean Corpuscular Volume 93.3 Mean Corpuscular Hemoglobin 29.4 Mean Corpuscular Hemoglobin Concent 31.5 L Red Cell Distribution Width 12.8 Platelet Count 320 Mean Platelet Volume 9.7 Neutrophils % 69.9 Lymphocytes % 15.0 Monocytes % 12.7 H Eosinophils % 1.2 Basophils % 0.5 Nucleated Red Blood Cells % 0.0 Neutrophils # 7.3 Lymphocytes # 1.6 Monocytes # 1.3 H Eosinophils # 0.1 Basophils # 0.1 Nucleated Red Blood Cells # 0.0 Sodium Level 135 Potassium Level 4.4 Chloride Level 101 Carbon Dioxide Level 27 Anion Gap 11 Blood Urea Nitrogen 9 Creatinine 0.51 Glucose Level 143 Calcium Level 8.9 Phosphorus Level 2.7 Magnesium Level 2.0 Test 06/28/16 11:20 Bedside Glucose 213 Medications Medications Current Medications Acetaminophen (Tylenol Tab) 650 mg Q4H PRN PO PAIN AND OR ELEVATED TEMP; Start 06/20/16 at 02:00 Morphine Sulfate (morphine) 4 mg Q4H PRN IV pain Last administered on 20:44; Admin Dose 4 MG; Start 06/20/16 at 02:00 Ondansetron HCl (Zofran Inj) 4 mg Q4H PRN IV NAUSEA AND/OR VOMITING Last administered on 06/26/16 14:14; Admin Dose 4 MG; Start 06/20/16 at 02:00 Hydralazine HCl (Apresoline) 25 mg Q6 PRN PO sbp>160; Start 06/20/16 at 02:00 Clopidogrel Bisulfate (plaVIX) 75 mg DAILY PO Last administered on 06/28/16 09 :20; Admin Dose 75 MG; Start 06/20/16 at 09:00 Gabapentin (Neurontin) 300 mg DAILY PO Last administered on 06/28/16 09:20; Admin Dose 300 MG; Start 06/20/16 at 09:00 Lisinopril (Zestril) 40 mg DAILY PRN PO ELEVATED BLOOD PRESSURE; Start at 02:00 Atorvastatin Calcium 10 mg 10 mg DAILY@21 PO Last administered on 06/27/16 21: 12; Admin Dose 10 MG; Start 06/20/16 at 21:00 Imipenem/ Cilastatin Sodium (Primaxin 250 Mg/ 100 ml (Pmx)) 100 ml @ 100 mls/ hr Q12 IVPB Last administered on 06/28/16 09:20; Admin Dose 100 MLS/HR; Start 06/20/16 at 14:30 Nicotine (Nicoderm 21 Mg/ 24hr) 1 patch DAILY TRANSDERM Last administered on 09:20; Admin Dose 1 PATCH; Start 06/20/16 at 13:30 Miscellaneous Information 1 ea NOTE XX ; Start 06/20/16 at 14:00 Glucose (Glutose) 15 gm Q15M PRN PO DECREASED GLUCOSE; Start 06/20/16 at 14:00 Glucose (Glutose) 22.5 gm Q15M PRN PO DECREASED GLUCOSE; Start 06/20/16 at 14: 00 Dextrose (D50w Syringe) 25 ml Q15M PRN IV DECREASED GLUCOSE Last administered on 06/20/16 19:19; Admin Dose 25 ML; Start 06/20/16 at 14:00 Dextrose (D50w Syringe) 50 ml Q15M PRN IV DECREASED GLUCOSE; Start 06/20/16 at 14:00 Glucagon (Glucagen) 1 mg Q15M PRN IM DECREASED GLUCOSE; Start 06/20/16 at 14:00 Glucose 15 gm 15 gm Q15M PRN BUCCAL DECREASED GLUCOSE; Start 06/20/16 at 14:00 Potassium Chloride/Sodium Chloride (KCl/NS) 1,020 ml @ 50 mls/hr [id number] IV Last administered on 06/28/16 03:20; Admin Dose 50 MLS/HR; Start 06/22/16 at 09 :00 Acetaminophen/ Hydrocodone Bitart ([place] (5/325)) 1 tab Q4H PRN PO pain Last administered on 06/28/16 01:09; Admin Dose 1 TAB; Start 06/23/16 at 17:30 Docusate Sodium (Colace) 100 mg BID PO Last administered on 06/28/16 09:20; Admin Dose 100 MG; Start 06/24/16 at 21:00 Diagnostic Test (Pha) (Accu-Chek) 1 ea 02 XX ; Start 06/28/16 at 02:00 BALDO VASQUES Jun 28, 2016 12:07
--- NOTE | 2016-06-28 19:08 | RADRPT ---
PROCEDURE: CHEST 1VW CLINICAL INDICATION: Hemoptysis TECHNIQUE: Single frontal view of the chest was obtained COMPARISON: 06/19/2016 FINDINGS: The cardiac size is normal. Aortic vascular calcifications are demonstrated. There is no pulmonary vascular congestion. The lungs are clear. No consolidation, effusion, or pneumothorax. Mild degenerative changes of the visualized osseous structures are visualized. IMPRESSION: 1. No acute cardiopulmonary process. 2. Atherosclerosis. RPTAT:PP .Leonides Cardoza MD, MD Date Time Electronically viewed and signed by .Leonides Cardoza MD, MD on 06/28/2016 19:07 .V/
[2016-06-28 20:00] VITALS: BP 132/88; RESP 17
--- NOTE | 2016-06-28 20:29 | PN ---
Date/Time of Note Date/Time of Note DATE: 06/28/16 TIME: 20:27 Assessment/Plan Lines/Catheters IV Catheter Type (from Nrsg): Peripheral IV Hansen in Place (from Nrsg): No Assessment/Plan Chief Complaint/Hosp Course RECOMMENDATIONS: The patient will need an angiogram, possible angioplasty. However, she is at high risk of dissection secondary to high calcification. RECOMMENDATIONS: SMA Stenosis Occlusion Left SCA and Carotid artery options are to cannulate the Right SCA arm which carries a risk of CVA Family ( daughter Tiffany ) contacted all questions answeared, pt to go to [facility] for stenting of SMA Plan for SMA Angioplasty and stent placement in the OR . Discussed with the patient. Problems: Subjective 24 Hr Interval Summary Constitutional: improved Pain Control: mild Exam/Review of Systems Vital Signs Vitals Vital Signs Date Time Temp Pulse Resp B/P Pulse Ox O2 Delivery O2 Flow Rate FiO2 06/28/16 08:51 98.1 73 16 149/73 96 06/26/16 16:47 Nasal Cannula 3.0 Intake and Output 06/27/16 06/27/16 06/28/16 15:00 23:00 07:00 Intake Total 1590 ml 1510 ml Output Total 450 ml 700 ml Balance 1140 ml 810 ml Exam Neck: non-tender, supple Respiratory: clear to auscultation, normal air movement Cardiovascular: nl pulses, regular rate and rhythm Gastrointestinal: nl liver, spleen, non-tender, soft Results Result Diagram: 06/28/16 0520 06/28/16 0520 MALIA COLLAZO MD Jun 28, 2016 20:29
[2016-06-28] MEDS: ATORVASTATIN 10 MG TAB PO SCH (20:54)
[2016-06-28] MEDS ORDERED: VITAMIN A & D 5 GM OINT PACKET TOP ONE (23:58)
[2016-06-29 01:12] VITALS: BP 132/88; RESP 17
[2016-06-29] MEDS: ACCU-CHEK XX SCH (02:00)
[2016-06-29] MEDS: POTASSIUM CHLORIDE 40 MEQ in SOD CHLORIDE 0.9% 1,000 ML IV SCH ×2 (03:18→15:00)
[2016-06-29 06:06] LABS: ADD SCAN DIFF NO
[2016-06-29 07:05] LABS: CALCIUM 8.9 mg/dl (8.4-10.2); CREATININE 0.51 mg/dl (0.44-1.00); POTASSIUM 4.5 mmol/L (3.5-5.1)
[2016-06-29 07:20] VITALS: BP 138/60; RESP 18
[2016-06-29] MEDS: INSULIN ASPART [NOVOLOG] 3 ML PEN SC SCH ×7 (08:11→22:00)
[2016-06-29] MEDS: IMIPENEM-CILAST 250MG IV (PMX) 100 ML IVPB SCH ×2 (08:27→21:41)
[2016-06-29] MEDS: DOCUSATE SODIUM 100 MG CAP PO SCH ×2 (08:30→21:41)
[2016-06-29] MEDS: CLOPIDOGREL 75 MG TAB PO SCH (08:30)
[2016-06-29] MEDS: NICOTINE (21 MG/24 HR) PATCH TRANSDERM SCH (08:30)
[2016-06-29] MEDS: GABAPENTIN 300 MG CAP PO SCH (08:30)
--- NOTE | 2016-06-29 11:07 | CONS ---
Date/Time of Note Date/Time of Note DATE: 06/29/16 TIME: 11:03 Assessment/Plan Assessment/Plan Chief Complaint/Hosp Course IMPRESSION: 1. Preoperative evaluation prior to treatment for likely ischemic bowel.- negative troponin x 3/NL EF by echo this admit. Lexiscan negative for ischemia with NL EF 06/21/16. Now s/p alternative approach attempt in OR unsuccessful due to subclavian stenosis 2. History of myocardial infarction. 3. Abnormal electrocardiogram, with biphasic inferior T-wave abnormalities. 4. Hypertension, borderline. 5. Dyslipidemia. 6. Ongoing tobacco usage. 7. Ischemic bowel. 8. Poor p.o. intake secondary to ischemic bowel, with subsequent weight loss. 9. Hyponatremia. Recc: -Continue zestril -Continue statin -Continue plavix -To be transferred to [facility] for higher level of care Problems: Consultation Date/Type/Reason Admit Date/Time Jun 20, 2016 at 15:01 Initial Consult Date 06/21/2016 Type of Consultation: Cardiology Reason for Consultation Pre-op Referring Provider: NITIN ZEPEDA Exam/Review of Systems Vital Signs Vitals Vital Signs Date Time Temp Pulse Resp B/P Pulse Ox O2 Delivery O2 Flow Rate FiO2 06/29/16 07:20 98.0 69 18 138/60 97 06/26/16 16:47 Nasal Cannula 3.0 Intake and Output 06/28/16 06/28/16 06/29/16 15:00 23:00 07:00 Intake Total 650 ml 1320 ml 520 ml Output Total 700 ml Balance 650 ml 620 ml 520 ml Exam Review of Systems: CONSTITUTIONAL: No fevers, chills. PULMONARY: No sob CARDIOVASCULAR: No chest pain/palpitations GASTROINTESTINAL: Mild abd pain GENITOURINARY: No hematuria/dysuria. MUSCULOSKELETAL: No myagias/arthalgias. PSYCHIATRIC: The patient denies depression. NEUROLOGIC: No weakness Constitutional: alert Psych: no complaints Head: normocephalic ENMT: mucosa pink and moist Neck: jvd (9 cm water), supple Respiratory: diminished breath sounds (at bases/B) Cardiovascular: regular rate and rhythm Gastrointestinal: soft, tender (mild TTP diffusely) Musculoskeletal: other (No focal deficits) Extremities: other (None) Results Result Diagram: 06/28/16 0520 06/29/16 0458 Results 24 hrs Laboratory Tests Test 06/28/16 11:20 06/28/16 17:16 06/28/16 20:53 06/29/16 04:55 Bedside Glucose 213 74 154 Sodium Level 135 Potassium Level 4.5 Chloride Level 105 Carbon Dioxide Level 28 Anion Gap 7 L Blood Urea Nitrogen 8 Creatinine 0.51 Glucose Level 130 Calcium Level 8.9 Test 06/29/16 08:08 Bedside Glucose 129 Medications Medications Current Medications Acetaminophen (Tylenol Tab) 650 mg Q4H PRN PO PAIN AND OR ELEVATED TEMP; Start 06/20/16 at 02:00 Morphine Sulfate (morphine) 4 mg Q4H PRN IV pain Last administered on 20:44; Admin Dose 4 MG; Start 06/20/16 at 02:00 Ondansetron HCl (Zofran Inj) 4 mg Q4H PRN IV NAUSEA AND/OR VOMITING Last administered on 06/26/16 14:14; Admin Dose 4 MG; Start 06/20/16 at 02:00 Hydralazine HCl (Apresoline) 25 mg Q6 PRN PO sbp>160; Start 06/20/16 at 02:00 Clopidogrel Bisulfate (plaVIX) 75 mg DAILY PO Last administered on 06/29/16 08 :30; Admin Dose 75 MG; Start 06/20/16 at 09:00 Gabapentin (Neurontin) 300 mg DAILY PO Last administered on 06/29/16 08:30; Admin Dose 300 MG; Start 06/20/16 at 09:00 Lisinopril (Zestril) 40 mg DAILY PRN PO ELEVATED BLOOD PRESSURE; Start at 02:00 Atorvastatin Calcium 10 mg 10 mg DAILY@21 PO Last administered on 06/28/16 20: 54; Admin Dose 10 MG; Start 06/20/16 at 21:00 Imipenem/ Cilastatin Sodium (Primaxin 250 Mg/ 100 ml (Pmx)) 100 ml @ 100 mls/ hr Q12 IVPB Last administered on 06/29/16 08:27; Admin Dose 100 MLS/HR; Start 06/20/16 at 14:30 Nicotine (Nicoderm 21 Mg/ 24hr) 1 patch DAILY TRANSDERM Last administered on 08:30; Admin Dose 1 PATCH; Start 06/20/16 at 13:30 Miscellaneous Information 1 ea NOTE XX ; Start 06/20/16 at 14:00 Glucose (Glutose) 15 gm Q15M PRN PO DECREASED GLUCOSE; Start 06/20/16 at 14:00 Glucose (Glutose) 22.5 gm Q15M PRN PO DECREASED GLUCOSE; Start 06/20/16 at 14: 00 Dextrose (D50w Syringe) 25 ml Q15M PRN IV DECREASED GLUCOSE Last administered on 06/20/16 19:19; Admin Dose 25 ML; Start 06/20/16 at 14:00 Dextrose (D50w Syringe) 50 ml Q15M PRN IV DECREASED GLUCOSE; Start 06/20/16 at 14:00 Glucagon (Glucagen) 1 mg Q15M PRN IM DECREASED GLUCOSE; Start 06/20/16 at 14:00 Glucose 15 gm 15 gm Q15M PRN BUCCAL DECREASED GLUCOSE; Start 06/20/16 at 14:00 Potassium Chloride/Sodium Chloride (KCl/NS) 1,020 ml @ 50 mls/hr [id number] IV Last administered on 06/29/16 03:18; Admin Dose 50 MLS/HR; Start 06/22/16 at 09 :00 Acetaminophen/ Hydrocodone Bitart ([place] (5/325)) 1 tab Q4H PRN PO pain Last administered on 06/28/16 23:46; Admin Dose 1 TAB; Start 06/23/16 at 17:30 Docusate Sodium (Colace) 100 mg BID PO Last administered on 06/29/16 08:30; Admin Dose 100 MG; Start 06/24/16 at 21:00 Diagnostic Test (Pha) (Accu-Chek) 1 ea 02 XX ; Start 06/28/16 at 02:00 BALDO VASQUES Jun 29, 2016 11:07
[2016-06-29 12:58] LABS: BASOPHILS % 0.4 % (0.0-2.0); EOSINOPHILS # 0.1 10^3/ul (0.0-0.5); EOSINOPHILS % 0.7 % (0.0-7.0); HEMATOCRIT 28.5 % (37.0-47.0); HEMOGLOBIN 8.9 g/dl (12.0-16.0); LYMPHOCYTES # 1.9 10^3/ul (0.8-2.9); LYMPHOCYTES % 18.7 % (15.0-51.0); MEAN CORPUSCULAR HEMOGLOBIN 29.5 pg (29.0-33.0); MEAN CORPUSCULAR HGB CONC 31.2 g/dl (32.0-37.0); MEAN CORPUSCULAR VOLUME 94.4 fl (82.0-101.0); MEAN PLATELET VOLUME 9.7 fl (7.4-10.4); MONOCYTE # 1.1 10^3/ul (0.3-0.9); MONOCYTES % 10.9 % (0.0-11.0); NEUTROPHILS % 68.8 % (39.0-77.0); PLATELET COUNT 311 10^3/UL (140-415); RED BLOOD COUNT 3.02 10^6/ul (4.20-5.40); RED CELL DISTRIBUTION WIDTH 13.1 % (11.5-14.5); WHITE BLOOD COUNT 10.2 10^3/ul (4.8-10.8)
--- NOTE | 2016-06-29 14:52 | PN ---
Date/Time of Note Date/Time of Note DATE: 06/29/16 TIME: 14:42 Assessment/Plan VTE Prophylaxis VTE Prophylaxis Intervention: SCD's Lines/Catheters IV Catheter Type (from [facility]): Peripheral IV Urinary Cath still in place: No Assessment/Plan Assessment/Plan 80 yo female with: 1. 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 Much better clinically but still awaiting SMA stenting CT abdo/pelvis here with high-grade stenosis of the SMA. 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 therefore the last minimally invasive option is to cannulate the Right SCA which carries a risk of CVA Dr Miller has discussed options with Family and patient multiple times now, after agreeing to the procedure first, now they want to go to a tertiary level facility for the procedure, I have conveyed this to [facility] and they are looking at transferring patient to [place] or [facility] which are contracted with [facility], they are not with [facility], I have notified [facility] case management and patient Patient says she would be Ok with either [place] or [facility] Continue Plavix for now 2. Leukocytosis, almost certainly related to gastrointestinal complaint and possible ischemic colitis/mesenteric ischemia. Resolved. On Imipenem 3. Severe peripheral vascular disease. Continue secondary prevention, Plavix 4. Chronic obstructive pulmonary disease, with known tobacco use. Respiratory status stable so far. Nebs prn. 5. Tobacco abuse, cessation is counseled. Nicotine patch Prophylaxis: SCDs and PPI with GI ppx. Disposition: Awaiting transfer to tertiary facility if accepted and bed available at [facility] or [place] for vascular Surgery to re evaluate patient and see if can proceed with access through right SCA. Subjective 24 Hr Interval Summary Free Text/Dictation Patient remains stable and now after 2 unsuccessful attempts at SMA stenting due to severe PAD, patient wants to be transferred to tertiary level facility for further attempts through different access Per [facility], they are only contracted with [facility] or [place], they will look for bed and accepting providers, vascular surgery and hospitalist. Exam/Review of Systems Vital Signs Vitals Vital Signs Date Time Temp Pulse Resp B/P Pulse Ox O2 Delivery O2 Flow Rate FiO2 06/29/16 07:20 98.0 69 18 138/60 97 06/26/16 16:47 Nasal Cannula 3.0 Intake and Output 06/28/16 06/28/16 06/29/16 14:59 22:59 06:59 Intake Total 650 ml 1320 ml 520 ml Output Total 700 ml Balance 650 ml 620 ml 520 ml Exam Constitutional: alert, oriented, other (thin, elderly ) Respiratory: clear to auscultation, normal air movement Cardiovascular: nl pulses, regular rate and rhythm Gastrointestinal: soft, tender (mild diffuse tenderness ) Extremities: other (patient with weak peripheral pulses since admission which has been her baseline ) 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, nl mental status, nl speech, other ( generalized weakness ) Results Result Diagram: 06/29/16 0455 06/29/16 0455 Results 24 hrs Laboratory Tests Test 06/28/16 17:16 06/28/16 20:53 06/29/16 04:55 06/29/16 08:08 Bedside Glucose 74 154 129 White Blood Count 10.2 Red Blood Count 3.02 L Hemoglobin 8.9 L Hematocrit 28.5 L Mean Corpuscular Volume 94.4 Mean Corpuscular Hemoglobin 29.5 Mean Corpuscular Hemoglobin Concent 31.2 L Red Cell Distribution Width 13.1 Platelet Count 311 Mean Platelet Volume 9.7 Neutrophils % 68.8 Lymphocytes % 18.7 Monocytes % 10.9 Eosinophils % 0.7 Basophils % 0.4 Nucleated Red Blood Cells % 0.0 Neutrophils # 7.0 Lymphocytes # 1.9 Monocytes # 1.1 H Eosinophils # 0.1 Basophils # 0.0 Nucleated Red Blood Cells # 0.0 Sodium Level 135 Potassium Level 4.5 Chloride Level 105 Carbon Dioxide Level 28 Anion Gap 7 L Blood Urea Nitrogen 8 Creatinine 0.51 Glucose Level 130 Calcium Level 8.9 Test 06/29/16 11:58 Bedside Glucose 160 Medications Medications Current Medications Acetaminophen (Tylenol Tab) 650 mg Q4H PRN PO PAIN AND OR ELEVATED TEMP; Start 06/20/16 at 02:00 Morphine Sulfate (morphine) 4 mg Q4H PRN IV pain Last administered on 20:44; Admin Dose 4 MG; Start 06/20/16 at 02:00 Ondansetron HCl (Zofran Inj) 4 mg Q4H PRN IV NAUSEA AND/OR VOMITING Last administered on 06/26/16 14:14; Admin Dose 4 MG; Start 06/20/16 at 02:00 Hydralazine HCl (Apresoline) 25 mg Q6 PRN PO sbp>160; Start 06/20/16 at 02:00 Clopidogrel Bisulfate (plaVIX) 75 mg DAILY PO Last administered on 06/29/16 08 :30; Admin Dose 75 MG; Start 06/20/16 at 09:00 Gabapentin (Neurontin) 300 mg DAILY PO Last administered on 06/29/16 08:30; Admin Dose 300 MG; Start 06/20/16 at 09:00 Atorvastatin Calcium 10 mg 10 mg DAILY@21 PO Last administered on 06/28/16 20: 54; Admin Dose 10 MG; Start 06/20/16 at 21:00 Imipenem/ Cilastatin Sodium (Primaxin 250 Mg/ 100 ml (Pmx)) 100 ml @ 100 mls/ hr Q12 IVPB Last administered on 06/29/16 08:27; Admin Dose 100 MLS/HR; Start 06/20/16 at 14:30 Nicotine (Nicoderm 21 Mg/ 24hr) 1 patch DAILY TRANSDERM Last administered on 08:30; Admin Dose 1 PATCH; Start 06/20/16 at 13:30 Miscellaneous Information 1 ea NOTE XX ; Start 06/20/16 at 14:00 Glucose (Glutose) 15 gm Q15M PRN PO DECREASED GLUCOSE; Start 06/20/16 at 14:00 Glucose (Glutose) 22.5 gm Q15M PRN PO DECREASED GLUCOSE; Start 06/20/16 at 14: 00 Dextrose (D50w Syringe) 25 ml Q15M PRN IV DECREASED GLUCOSE Last administered on 06/20/16 19:19; Admin Dose 25 ML; Start 06/20/16 at 14:00 Dextrose (D50w Syringe) 50 ml Q15M PRN IV DECREASED GLUCOSE; Start 06/20/16 at 14:00 Glucagon (Glucagen) 1 mg Q15M PRN IM DECREASED GLUCOSE; Start 06/20/16 at 14:00 Glucose 15 gm 15 gm Q15M PRN BUCCAL DECREASED GLUCOSE; Start 06/20/16 at 14:00 Potassium Chloride/Sodium Chloride (KCl/NS) 1,020 ml @ 50 mls/hr [id number] IV Last administered on 06/29/16 03:18; Admin Dose 50 MLS/HR; Start 06/22/16 at 09 :00 Acetaminophen/ Hydrocodone Bitart ([place] (5/325)) 1 tab Q4H PRN PO pain Last administered on 06/28/16 23:46; Admin Dose 1 TAB; Start 06/23/16 at 17:30 Docusate Sodium (Colace) 100 mg BID PO Last administered on 06/29/16 08:30; Admin Dose 100 MG; Start 06/24/16 at 21:00 Diagnostic Test (Pha) (Accu-Chek) 1 02 XX ; Start 06/28/16 at 02:00 Lisinopril (Zestril) 20 mg DAILY PO ; Start 06/30/16 at 09:00 NITIN ZEPEDA Jun 29, 2016 14:52
--- NOTE | 2016-06-29 14:54 | PDOCDIS ---
Discharge Instructions CONDITION Patient Condition: Stable HOME CARE INSTRUCTIONS: Special Diet: LOW FAT ACTIVITY: Activity Restrictions: Slowly Increase Activity FOLLOW UP/APPOINTMENTS Appointments Follow up with accepting providers at accepting facility NITIN ZEPEDA Jun 29, 2016 14:54
[2016-06-29 20:49] VITALS: BP 167/73
[2016-06-29] MEDS: ATORVASTATIN 10 MG TAB PO SCH (21:41)
[2016-06-29] MEDS: HYDROCODONE/APAP (5/325) TAB PO PRN (23:11)
[2016-06-30] MEDS: ACCU-CHEK XX SCH (02:00)
[2016-06-30] MEDS: POTASSIUM CHLORIDE 40 MEQ in SOD CHLORIDE 0.9% 1,000 ML IV SCH ×2 (03:10→11:24)
[2016-06-30 07:20] VITALS: BP 135/61; RESP 18
[2016-06-30] MEDS: INSULIN ASPART [NOVOLOG] 3 ML PEN SC SCH ×7 (08:12→21:00)
[2016-06-30] MEDS: GABAPENTIN 300 MG CAP PO SCH (08:24)
[2016-06-30] MEDS: IMIPENEM-CILAST 250MG IV (PMX) 100 ML IVPB SCH ×2 (08:24→20:57)
[2016-06-30] MEDS: CLOPIDOGREL 75 MG TAB PO SCH (08:25)
[2016-06-30] MEDS: DOCUSATE SODIUM 100 MG CAP PO SCH ×2 (08:25→20:57)
[2016-06-30] MEDS: LISINOPRIL 20 MG TAB PO SCH (08:25)
[2016-06-30] MEDS: NICOTINE (21 MG/24 HR) PATCH TRANSDERM SCH (08:25)
--- NOTE | 2016-06-30 12:12 | PN ---
Date/Time of Note Date/Time of Note DATE: 06/30/16 TIME: 12:09 Assessment/Plan VTE Prophylaxis VTE Prophylaxis Intervention: SCD's (TEDs ordered 06/20 ) Lines/Catheters IV Catheter Type (from Nrs): Peripheral IV Urinary Cath still in place: No Assessment/Plan Assessment/Plan 80 yo female with: 1. 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 Tolerating some po and awaiting SMA stenting CT abdo/pelvis here with high-grade stenosis of the SMA. 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 therefore the last minimally invasive option is to cannulate the Right SCA which carries a risk of CVA Dr Miller has discussed options with Family and patient multiple times now, after agreeing to the procedure first, now they want to go to a tertiary level facility for the procedure, I have conveyed this to [facility] and they are looking at transferring patient to [place] or [facility] which are contracted with [facility], they are not with [facility], I have notified [facility] case management again today. Continue Plavix for now 2. Leukocytosis, almost certainly related to gastrointestinal complaint and possible ischemic colitis/mesenteric ischemia. Resolved. On Imipenem 3. Severe peripheral vascular disease. Continue secondary prevention, Plavix, noted more prominent RLE edema which is procedural LE, improved when elevated, bilateral venous Doppler ordered, discussed with Dr Miller who will be by later. 4. Chronic obstructive pulmonary disease, with known tobacco use. Respiratory status stable so far. Nebs prn. 5. Tobacco abuse, cessation is counseled. Nicotine patch Prophylaxis: SCDs and PPI with GI ppx. Disposition: Awaiting transfer to tertiary facility if accepted and bed available at [facility] or [place] for vascular Surgery to re evaluate patient and see if can proceed with access through right SCA. B/l LLE Doppler pending. Subjective 24 Hr Interval Summary Free Text/Dictation Patient remains stable, discussed transfer to higher level of care with [facility] Saturday and today, working [place] [facility] With edema RLE noted again, venous doppler pending, discussed with Dr Miller Bedside Doppler being checked Exam/Review of Systems Vital Signs Vitals Vital Signs Date Time Temp Pulse Resp B/P Pulse Ox O2 Delivery O2 Flow Rate FiO2 06/30/16 07:20 98.0 72 18 135/61 96 06/26/16 16:47 Nasal Cannula 3.0 Intake and Output 06/29/16 06/29/16 06/30/16 15:00 23:00 07:00 Intake Total 100 ml 1500 ml 590 ml Output Total 1500 ml 400 ml Balance -1400 ml 1100 ml 590 ml Exam Constitutional: alert, frail, oriented Respiratory: clear to auscultation, normal air movement Cardiovascular: nl pulses, regular rate and rhythm Gastrointestinal: non-tender, soft Extremities: other (RLE edema more prominent while sitting up and difficulty finding dorsalis pedis pulse with bedside doppler ) 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, nl mental status, nl speech, nl strength (at baseline ) Results Result Diagram: 06/29/16 0455 06/29/16 0455 Results 24 hrs Laboratory Tests Test 06/29/16 17:15 06/29/16 21:49 06/30/16 02:05 06/30/16 08:08 Bedside Glucose 158 232 H 155 147 Test 06/30/16 11:54 Bedside Glucose 155 Medications Medications Current Medications Acetaminophen (Tylenol Tab) 650 mg Q4H PRN PO PAIN AND OR ELEVATED TEMP; Start 06/20/16 at 02:00 Morphine Sulfate (morphine) 4 mg Q4H PRN IV pain Last administered on 20:44; Admin Dose 4 MG; Start 06/20/16 at 02:00 Ondansetron HCl (Zofran Inj) 4 mg Q4H PRN IV NAUSEA AND/OR VOMITING Last administered on 06/26/16 14:14; Admin Dose 4 MG; Start 06/20/16 at 02:00 Hydralazine HCl (Apresoline) 25 mg Q6 PRN PO sbp>160; Start 06/20/16 at 02:00 Clopidogrel Bisulfate (plaVIX) 75 mg DAILY PO Last administered on 06/30/16 08 :25; Admin Dose 75 MG; Start 06/20/16 at 09:00 Gabapentin (Neurontin) 300 mg DAILY PO Last administered on 06/30/16 08:24; Admin Dose 300 MG; Start 06/20/16 at 09:00 Atorvastatin Calcium 10 mg 10 mg DAILY@21 PO Last administered on 06/29/16 21: 41; Admin Dose 10 MG; Start 06/20/16 at 21:00 Imipenem/ Cilastatin Sodium (Primaxin 250 Mg/ 100 ml (Pmx)) 100 ml @ 100 mls/ hr Q12 IVPB Last administered on 06/30/16 08:24; Admin Dose 100 MLS/HR; Start 06/20/16 at 14:30 Nicotine (Nicoderm 21 Mg/ 24hr) 1 patch DAILY TRANSDERM Last administered on 08:25; Admin Dose 1 PATCH; Start 06/20/16 at 13:30 Miscellaneous Information 1 ea NOTE XX ; Start 06/20/16 at 14:00 Glucose (Glutose) 15 gm Q15M PRN PO DECREASED GLUCOSE; Start 06/20/16 at 14:00 Glucose (Glutose) 22.5 gm Q15M PRN PO DECREASED GLUCOSE; Start 06/20/16 at 14: 00 Dextrose (D50w Syringe) 25 ml Q15M PRN IV DECREASED GLUCOSE Last administered on 06/20/16 19:19; Admin Dose 25 ML; Start 06/20/16 at 14:00 Dextrose (D50w Syringe) 50 ml Q15M PRN IV DECREASED GLUCOSE; Start 06/20/16 at 14:00 Glucagon (Glucagen) 1 mg Q15M PRN IM DECREASED GLUCOSE; Start 06/20/16 at 14:00 Glucose 15 gm 15 gm Q15M PRN BUCCAL DECREASED GLUCOSE; Start 06/20/16 at 14:00 Potassium Chloride/Sodium Chloride (KCl/NS) 1,020 ml @ 50 mls/hr [id number] IV Last administered on 06/30/16 03:10; Admin Dose 50 MLS/HR; Start 06/22/16 at 09 :00 Acetaminophen/ Hydrocodone Bitart ([place] (5/325)) 1 tab Q4H PRN PO pain Last administered on 06/29/16 23:11; Admin Dose 1 TAB; Start 06/23/16 at 17:30 Docusate Sodium (Colace) 100 mg BID PO Last administered on 06/30/16 08:25; Admin Dose 100 MG; Start 06/24/16 at 21:00 Diagnostic Test (Pha) (Accu-Chek) 1 ea 02 XX ; Start 06/28/16 at 02:00 Lisinopril (Zestril) 20 mg DAILY PO Last administered on 06/30/16t 08:25; Admin Dose 20 MG; Start 06/30/16 at 09:00 NITIN ZEPEDA Jun 30, 2016 12:12
--- NOTE | 2016-06-30 15:19 | CONS ---
Date/Time of Note Date/Time of Note DATE: 06/30/16 TIME: 15:17 Assessment/Plan Assessment/Plan Additional Assessment/Plan 1. Preoperative evaluation prior to treatment for likely ischemic bowel.- negative troponin x 3/NL EF by echo this admit. Lexiscan negative for ischemia with NL EF 06/21/16. Now s/p alternative approach attempt in OR unsuccessful due to subclavian stenosis - stable, surgical team follows. 2. History of myocardial infarction - no CP now - doubt ischemia. 3. Abnormal electrocardiogram, with biphasic inferior T-wave abnormalities. 4. Hypertension, borderline - BP in good range now. 5. Dyslipidemia. 6. Ongoing tobacco usage. 7. Ischemic bowel. 8. Poor p.o. intake secondary to ischemic bowel, with subsequent weight loss. 9. Hyponatremia. Consultation Date/Type/Reason Admit Date/Time Jun 20, 2016 at 15:01 Type of Consultation: Cardiology Referring Provider: NITIN ZEPEDA 24 HR Interval Summary Free Text/Dictation NO acute events - comfortable - will monitor clinically. Off tele now. ROS: No fever, no chills, no nausea, no vomiting, no diarrhea/constipation No recent weight changes No chest pain, no PND, no orthopnea No dizziness, blurred vision No thirst, no heat or cold intolerance (per nurse) Exam/Review of Systems Vital Signs Vitals Vital Signs Date Time Temp Pulse Resp B/P Pulse Ox O2 Delivery O2 Flow Rate FiO2 06/30/16 07:20 98.0 72 18 135/61 96 06/26/16 16:47 Nasal Cannula 3.0 Intake and Output 06/29/16 06/29/16 06/30/16 15:00 23:00 07:00 Intake Total 100 ml 1500 ml 590 ml Output Total 1500 ml 400 ml Balance -1400 ml 1100 ml 590 ml Exam General: WN/WD/NAD, AOx 0 sleeping HEENT: Unicetric/atraumatic/EOMI (does not follow commands) NECK: JVD elevated, no thyromegaly Lymph: no lymphadenopathy HEART: regular with no S3, II/ systolic murmur at apex LUNGS: Coarse sounds ABD: soft, NT, ND, +BS : Intact Neuro: non focal SKIN: chronic changes EXT: trace edema Results Result Diagram: 06/29/16 0455 06/29/16 045 Results 24 hrs Laboratory Tests Test 06/29/16 17:15 06/29/16 21:49 06/30/16 02:05 06/30/16 08:08 Bedside Glucose 158 232 H 155 147 Test 06/30/16 11:54 Bedside Glucose 155 Medications Medications Current Medications Acetaminophen (Tylenol Tab) 650 mg Q4H PRN PO PAIN AND OR ELEVATED TEMP; Start 06/20/16 at 02:00 Morphine Sulfate (morphine) 4 mg Q4H PRN IV pain Last administered on 20:44; Admin Dose 4 MG; Start 06/20/16 at 02:00 Ondansetron HCl (Zofran Inj) 4 mg Q4H PRN IV NAUSEA AND/OR VOMITING Last administered on 06/26/16 14:14; Admin Dose 4 MG; Start 06/20/16 at 02:00 Hydralazine HCl (Apresoline) 25 mg Q6 PRN PO sbp>160; Start 06/20/16 at 02:00 Clopidogrel Bisulfate (plaVIX) 75 mg DAILY PO Last administered on 06/30/16 08 :25; Admin Dose 75 MG; Start 06/20/16 at 09:00 Gabapentin (Neurontin) 300 mg DAILY PO Last administered on 06/30/16 08:24; Admin Dose 300 MG; Start 06/20/16 at 09:00 Atorvastatin Calcium 10 mg 10 mg DAILY@21 PO Last administered on 06/29/16 21: 41; Admin Dose 10 MG; Start 06/20/16 at 21:00 Imipenem/ Cilastatin Sodium (Primaxin 250 Mg/ 100 ml (Pmx)) 100 ml @ 100 mls/ hr Q12 IVPB Last administered on 06/30/16 08:24; Admin Dose 100 MLS/HR; Start 06/20/16 at 14:30 Nicotine (Nicoderm 21 Mg/ 24hr) 1 patch DAILY TRANSDERM Last administered on 08:25; Admin Dose 1 PATCH; Start 06/20/16 at 13:30 Miscellaneous Information 1 ea NOTE XX ; Start 06/20/16 at 14:00 Glucose (Glutose) 15 gm Q15M PRN PO DECREASED GLUCOSE; Start 06/20/16 at 14:00 Glucose (Glutose) 22.5 gm Q15M PRN PO DECREASED GLUCOSE; Start 06/20/16 at 14: 00 Dextrose (D50w Syringe) 25 ml Q15M PRN IV DECREASED GLUCOSE Last administered on 06/20/16 19:19; Admin Dose 25 ML; Start 06/20/16 at 14:00 Dextrose (D50w Syringe) 50 ml Q15M PRN IV DECREASED GLUCOSE; Start 06/20/16 at 14:00 Glucagon (Glucagen) 1 mg Q15M PRN IM DECREASED GLUCOSE; Start 06/20/16 at 14:00 Glucose 15 gm 15 gm Q15M PRN BUCCAL DECREASED GLUCOSE; Start 06/20/16 at 14:00 Potassium Chloride/Sodium Chloride (KCl/NS) 1,020 ml @ 50 mls/hr [id number] IV Last administered on 06/30/16 03:10; Admin Dose 50 MLS/HR; Start 06/22/16 at 09 :00 Acetaminophen/ Hydrocodone Bitart ([place] (5/325)) 1 tab Q4H PRN PO pain Last administered on 06/29/16 23:11; Admin Dose 1 TAB; Start 06/23/16 at 17:30 Docusate Sodium (Colace) 100 mg BID PO Last administered on 06/30/16 08:25; Admin Dose 100 MG; Start 06/24/16 at 21:00 Diagnostic Test (Pha) (Accu-Chek) 1 ea 02 XX ; Start 06/28/16 at 02:00 Lisinopril (Zestril) 20 mg DAILY PO Last administered on 06/30/16 08:25; Admin Dose 20 MG; Start 06/30/16 at 09:00 TANNA ACKERMAN MD Jun 30, 2016 15:19
[2016-06-30] MEDS: HYDROCODONE/APAP (5/325) TAB PO PRN ×2 (15:53→23:45)
--- NOTE | 2016-06-30 16:27 | RADRPT ---
PROCEDURE: US Lower extremity Venous. CLINICAL INDICATION: r/o dvt TECHNIQUE: Multiple sonographic images of the bilateral lower extremity deep venous system was obt ained utilizing grayscale, color-flow, compressive sonography and doppler imaging with augmentation. The images were reviewed on a PACS workstation. COMPARISON: None. FINDINGS: There is normal compressibility and flow within the bilateral common femoral, deep femoral, superfic ial femoral and popliteal veins. The deep veins the calf were incompletely visualized. IMPRESSION: No sonographic evidence for deep venous thrombosis in the bilateral lower extremities. Physician Jada Date Time Electronically viewed and signed by Physician Jada on 06/30/2016 16:27 ML/
--- NOTE | 2016-06-30 16:34 | PN ---
Date/Time of Note Date/Time of Note DATE: 06/30/16 TIME: 16:32 Assessment/Plan Lines/Catheters IV Catheter Type (from Nrsg): Peripheral IV Hansen in Place (from Nrsg): No Assessment/Plan Chief Complaint/Hosp Course RECOMMENDATIONS: The patient will need an angiogram, possible angioplasty. However, she is at high risk of dissection secondary to high calcification. RECOMMENDATIONS: SMA Stenosis Occlusion Left SCA and Carotid artery Right leg swelling, NO DVT options are to cannulate the Right SCA arm which carries a risk of CVA Family ( daughter Tiffany ) contacted all questions answeared, pt to go to [facility] for stenting of SMA Plan for SMA Angioplasty and stent placement in the OR . Discussed with the patient. Problems: Subjective 24 Hr Interval Summary Constitutional: improved Pain Control: mild Exam/Review of Systems Vital Signs Vitals Vital Signs Date Time Temp Pulse Resp B/P Pulse Ox O2 Delivery O2 Flow Rate FiO2 06/30/16 07:20 98.0 72 18 135/61 96 06/26/16 16:47 Nasal Cannula 3.0 Intake and Output 06/29/16 06/29/16 06/30/16 15:00 23:00 07:00 Intake Total 100 ml 1500 ml 590 ml Output Total 1500 ml 400 ml Balance -1400 ml 1100 ml 590 ml Exam Neck: non-tender, supple Respiratory: clear to auscultation, normal air movement Cardiovascular: nl pulses, regular rate and rhythm Gastrointestinal: nl liver, spleen, non-tender, soft Extremities: pitting pedal edema Results Result Diagram: 06/29/16 0455 06/29/16 0455 MALIA COLLAZO MD Jun 30, 2016 16:34
[2016-06-30 20:10] VITALS: BP 132/65; RESP 18
[2016-06-30] MEDS: ATORVASTATIN 10 MG TAB PO SCH (20:57)
[2016-07-01] MEDS: ACCU-CHEK XX SCH (02:00)
[2016-07-01] MEDS: POTASSIUM CHLORIDE 40 MEQ in SOD CHLORIDE 0.9% 1,000 ML IV SCH ×2 (02:54→22:45)
[2016-07-01 07:32] VITALS: BP 125/58; RESP 18
[2016-07-01] MEDS: GABAPENTIN 300 MG CAP PO SCH (08:44)
[2016-07-01] MEDS: LISINOPRIL 20 MG TAB PO SCH (08:44)
[2016-07-01] MEDS: DOCUSATE SODIUM 100 MG CAP PO SCH ×2 (08:44→21:34)
[2016-07-01] MEDS: CLOPIDOGREL 75 MG TAB PO SCH (08:44)
[2016-07-01] MEDS: NICOTINE (21 MG/24 HR) PATCH TRANSDERM SCH (08:45)
[2016-07-01] MEDS: INSULIN ASPART [NOVOLOG] 3 ML PEN SC SCH ×7 (08:56→21:00)
--- NOTE | 2016-07-01 09:39 | PN ---
Date/Time of Note Date/Time of Note DATE: 07/01/16 TIME: 09:23 Assessment/Plan VTE Prophylaxis VTE Prophylaxis Intervention: anti-embolic stocking Lines/Catheters IV Catheter Type (from Nrsg): Peripheral IV Urinary Cath still in place: No Assessment/Plan Assessment/Plan 80 yo female with: 1. 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 Tolerating some po and awaiting transfer to tertiary facility for SMA stenting CT abdo/pelvis here with high-grade stenosis of the SMA. 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 Continue Plavix for now 2. Leukocytosis, almost certainly related to gastrointestinal complaint and possible ischemic colitis/mesenteric ischemia. Resolved. s/p 10 days of Imipenem , will d/c today. 3. Severe peripheral vascular disease. Continue secondary prevention, Plavix, Doppler RLE negative, Teds in place, elevate while in bed. Dr Miller evaluated patient yesterday too. 4. Chronic obstructive pulmonary disease, with known tobacco use. Respiratory status stable so far. Nebs prn. 5. Tobacco abuse, cessation is counseled. Nicotine patch Prophylaxis: SCDs and PPI with GI ppx. Disposition: Awaiting transfer to tertiary facility if accepted and bed available at [facility] or [place] for vascular Surgery to re evaluate patient and see if can proceed with access through right SCA. Subjective 24 Hr Interval Summary Free Text/Dictation Patient doing Ok and remains stable Tolerating po a little better and pain better controlled Exam/Review of Systems Vital Signs Vitals Vital Signs Date Time Temp Pulse Resp B/P Pulse Ox O2 Delivery O2 Flow Rate FiO2 07/01/16 07:32 97.9 75 18 125/58 97 Intake and Output 06/30/16 06/30/16 07/01/16 15:00 23:00 07:00 Intake Total 340 ml 1940 ml 500 ml Output Total 2100 ml 400 ml Balance -1760 ml 1540 ml 500 ml Exam Constitutional: alert, frail, oriented Respiratory: clear to auscultation, normal air movement Cardiovascular: nl pulses, regular rate and rhythm Gastrointestinal: other (mild diffuse abdominal tenderness ), soft Extremities: other (weak pulses LE bilaterally ), pitting pedal edema (RLE better with TEDs stocking in place ) Neurological: POLISHER AND BUFFER II-XII intact, nl mental status, nl speech, other (strength at baseline ) Results Result Diagram: 06/29/16 0455 06/29/16 0455 Results 24 hrs Laboratory Tests Test 06/30/16 11:54 06/30/16 17:01 06/30/16 20:56 07/01/16 08:16 Bedside Glucose 155 218 146 142 Medications Medications Current Medications Acetaminophen (Tylenol Tab) 650 mg Q4H PRN PO PAIN AND OR ELEVATED TEMP; Start 06/20/16 at 02:00 Morphine Sulfate (morphine) 4 mg Q4H PRN IV pain Last administered on 20:44; Admin Dose 4 MG; Start 06/20/16 at 02:00 Ondansetron HCl (Zofran Inj) 4 mg Q4H PRN IV NAUSEA AND/OR VOMITING Last administered on 06/26/16 14:14; Admin Dose 4 MG; Start 06/20/16 at 02:00 Hydralazine HCl (Apresoline) 25 mg Q6 PRN PO sbp>160; Start 06/20/16 at 02:00 Clopidogrel Bisulfate (plaVIX) 75 mg DAILY PO Last administered on 07/01/16 08 :44; Admin Dose 75 MG; Start 06/20/16 at 09:00 Gabapentin (Neurontin) 300 mg DAILY PO Last administered on 07/01/16 08:44; Admin Dose 300 MG; Start 06/20/16 at 09:00 Atorvastatin Calcium (Lipitor) 10 mg DAILY@21 PO Last administered on 20:57; Admin Dose 10 MG; Start 06/20/16 at 21:00 Nicotine (Nicoderm 21 Mg/ 24hr) 1 patch DAILY TRANSDERM Last administered on 08:45; Admin Dose 1 PATCH; Start 06/20/16 at 13:30 Miscellaneous Information 1 ea NOTE XX ; Start 06/20/16 at 14:00 Glucose (Glutose) 15 gm Q15M PRN PO DECREASED GLUCOSE; Start 06/20/16 at 14:00 Glucose (Glutose) 22.5 gm Q15M PRN PO DECREASED GLUCOSE; Start 06/20/16 at 14: 00 Dextrose (D50w Syringe) 25 ml Q15M PRN IV DECREASED GLUCOSE Last administered on 06/20/16 19:19; Admin Dose 25 ML; Start 06/20/16 at 14:00 Dextrose (D50w Syringe) 50 ml Q15M PRN IV DECREASED GLUCOSE; Start 06/20/16 at 14:00 Glucagon (Glucagen) 1 mg Q15M PRN IM DECREASED GLUCOSE; Start 06/20/16 at 14:00 Glucose 15 gm 15 gm Q15M PRN BUCCAL DECREASED GLUCOSE; Start 06/20/16 at 14:00 Potassium Chloride/Sodium Chloride (KCl/NS) 1,020 ml @ 50 mls/hr [id number] IV Last administered on 07/01/16 02:54; Admin Dose 50 MLS/HR; Start 06/22/16 at 09 :00 Acetaminophen/ Hydrocodone Bitart ([place] (5/325)) 1 tab Q4H PRN PO pain Last administered on 06/30/16 23:45; Admin Dose 1 TAB; Start 06/23/16 at 17:30 Docusate Sodium (Colace) 100 mg BID PO Last administered on 07/01/16 08:44; Admin Dose 100 MG; Start 06/24/16 at 21:00 Diagnostic Test (Pha) (Accu-Chek) 1 ea 02 XX ; Start 06/28/16 at 02:00 Lisinopril (Zestril) 20 mg DAILY PO Last administered on 07/01/16 08:44; Admin Dose 20 MG; Start 06/30/16 at 09:00 Procedures Procedures PROCEDURE: US Lower extremity Venous. CLINICAL INDICATION: r/o dvt TECHNIQUE: Multiple sonographic images of the bilateral lower extremity deep venous system was obtained utilizing grayscale, color-flow, compressive sonography and doppler imaging with augmentation. The images were reviewed on a PACS workstation. COMPARISON: None. FINDINGS: There is normal compressibility and flow within the bilateral common femoral, deep femoral, superficial femoral and popliteal veins. The deep veins the calf were incompletely visualized. IMPRESSION: No sonographic evidence for deep venous thrombosis in the bilateral lower extremities. Facundo Lawrence Physician Date Time Electronically viewed and signed by Facundo Lawrence, Physician on 06/30/2016 16 :27 NITIN ZEPEDA F Jul 01, 2016 09:37
[2016-07-01] MEDS: HYDROCODONE/APAP (5/325) TAB PO PRN ×2 (14:02→22:45)
--- NOTE | 2016-07-01 15:15 | CONS ---
Date/Time of Note Date/Time of Note DATE: 07/01/16 TIME: 15:13 Assessment/Plan Assessment/Plan Additional Assessment/Plan 1. Preoperative evaluation prior to treatment for likely ischemic bowel.- negative troponin x 3/NL EF by echo this admit. Lexiscan negative for ischemia with NL EF 06/21/16. Now s/p alternative approach attempt in OR unsuccessful due to subclavian stenosis - stable, surgical team follows. BETTER NOW. 2. History of myocardial infarction - no CP now - doubt ischemia. NO EVIDENCE OF CARDIAC INSTABILITY. 3. Abnormal electrocardiogram, with biphasic inferior T-wave abnormalities. 4. Hypertension, borderline - BP in good range now. 5. Dyslipidemia. 6. Ongoing tobacco usage. 7. Ischemic bowel- s/p surgical care. 8. Poor p.o. intake secondary to ischemic bowel, with subsequent weight loss. 9. Hyponatremia. Consultation Date/Type/Reason Admit Date/Time Jun 20, 2016 at 15:01 Type of Consultation: Cardiology Referring Provider: NITIN ZEPEDA 24 HR Interval Summary Free Text/Dictation No acute events - off tele - stable overall. ROS: No fever, no chills, no nausea, no vomiting, no diarrhea/constipation No recent weight changes No chest pain, no PND, no orthopnea No dizziness, blurred vision No thirst, no heat or cold intolerance Exam/Review of Systems Vital Signs Vitals Vital Signs Date Time Temp Pulse Resp B/P Pulse Ox O2 Delivery O2 Flow Rate FiO2 07/01/16 07:32 97.9 75 18 125/58 97 Intake and Output 06/30/16 06/30/16 07/01/16 15:00 23:00 07:00 Intake Total 340 ml 1940 ml 500 ml Output Total 2100 ml 400 ml Balance -1760 ml 1540 ml 500 ml Exam General: WN/WD/NAD, AOx 2-3 HEENT: Unicetric/atraumatic/EOMI (follow commands) NECK: JVD elevated, no thyromegaly Lymph: no lymphadenopathy HEART: regular with no S3, II/ systolic murmur at apex LUNGS: Coarse sounds ABD: soft, NT, ND, +BS : Intact Neuro: non focal SKIN: chronic changes EXT: trace edema Results Result Diagram: 06/29/16 0455 06/29/16 0455 Results 24 hrs Laboratory Tests Test 06/30/16 17:01 06/30/16 20:56 07/01/16 08:16 07/01/16 11:56 Bedside Glucose 218 146 142 214 Medications Medications Current Medications Acetaminophen (Tylenol Tab) 650 mg Q4H PRN PO PAIN AND OR ELEVATED TEMP; Start 06/20/16 at 02:00 Morphine Sulfate (morphine) 4 mg Q4H PRN IV pain Last administered on 20:44; Admin Dose 4 MG; Start 06/20/16 at 02:00 Ondansetron HCl (Zofran Inj) 4 mg Q4H PRN IV NAUSEA AND/OR VOMITING Last administered on 06/26/16 14:14; Admin Dose 4 MG; Start 06/20/16 at 02:00 Hydralazine HCl (Apresoline) 25 mg Q6 PRN PO sbp>160; Start 06/20/16 at 02:00 Clopidogrel Bisulfate (plaVIX) 75 mg DAILY PO Last administered on 07/01/16 08 :44; Admin Dose 75 MG; Start 06/20/16 at 09:00 Gabapentin (Neurontin) 300 mg DAILY PO Last administered on 07/01/16 08:44; Admin Dose 300 MG; Start 06/20/16 at 09:00 Atorvastatin Calcium (Lipitor) 10 mg DAILY@21 PO Last administered on 20:57; Admin Dose 10 MG; Start 06/20/16 at 21:00 Nicotine (Nicoderm 21 Mg/ 24hr) 1 patch DAILY TRANSDERM Last administered on 08:45; Admin Dose 1 PATCH; Start 06/20/16 at 13:30 Miscellaneous Information 1 ea NOTE XX ; Start 06/20/16 at 14:00 Glucose (Glutose) 15 gm Q15M PRN PO DECREASED GLUCOSE; Start 06/20/16 at 14:00 Glucose (Glutose) 22.5 gm Q15M PRN PO DECREASED GLUCOSE; Start 06/20/16 at 14: 00 Dextrose (D50w Syringe) 25 ml Q15M PRN IV DECREASED GLUCOSE Last administered on 06/20/16 19:19; Admin Dose 25 ML; Start 06/20/16 at 14:00 Dextrose (D50w Syringe) 50 ml Q15M PRN IV DECREASED GLUCOSE; Start 06/20/16 at 14:00 Glucagon (Glucagen) 1 mg Q15M PRN IM DECREASED GLUCOSE; Start 06/20/16 at 14:00 Glucose 15 gm 15 gm Q15M PRN BUCCAL DECREASED GLUCOSE; Start 06/20/16 at 14:00 Potassium Chloride/Sodium Chloride (KCl/NS) 1,020 ml @ 50 mls/hr [id number] IV Last administered on 07/01/16 02:54; Admin Dose 50 MLS/HR; Start 06/22/16 at 09 :00 Acetaminophen/ Hydrocodone Bitart ([place] (5/325)) 1 tab Q4H PRN PO pain Last administered on 07/01/16 14:02; Admin Dose 1 TAB; Start 06/23/16 at 17:30 Docusate Sodium (Colace) 100 mg BID PO Last administered on 07/01/16 08:44; Admin Dose 100 MG; Start 06/24/16 at 21:00 Diagnostic Test (Pha) (Accu-Chek) 1 ea 02 XX ; Start 06/28/16 at 02:00 Lisinopril (Zestril) 20 mg DAILY PO Last administered on 07/01/16 08:44; Admin Dose 20 MG; Start 06/30/16 at 09:00 TANNA ACKERMAN MD Jul 01, 2016 15:15
[2016-07-01 20:12] VITALS: BP 137/64; RESP 18
[2016-07-01] MEDS: ATORVASTATIN 10 MG TAB PO SCH (21:34)
[2016-07-02] MEDS: ACCU-CHEK XX SCH (02:00)
[2016-07-02] MEDS: POTASSIUM CHLORIDE 40 MEQ in SOD CHLORIDE 0.9% 1,000 ML IV SCH (04:12)
[2016-07-02 07:57] VITALS: BP_SYST 122; BP_SYST 173; BP_DIAS 58; BP_DIAS 74; RESP 18
[2016-07-02] MEDS: INSULIN ASPART [NOVOLOG] 3 ML PEN SC SCH ×4 (08:08→12:04)
[2016-07-02] MEDS: GABAPENTIN 300 MG CAP PO SCH (08:14)
[2016-07-02] MEDS: CLOPIDOGREL 75 MG TAB PO SCH (08:14)
[2016-07-02] MEDS: LISINOPRIL 20 MG TAB PO SCH (08:15)
[2016-07-02] MEDS: NICOTINE (21 MG/24 HR) PATCH TRANSDERM SCH (08:15)
[2016-07-02] MEDS: DOCUSATE SODIUM 100 MG CAP PO SCH (08:15)
--- NOTE | 2016-07-02 11:09 | PN ---
Date/Time of Note Date/Time of Note DATE: 07/02/16 TIME: 11:08 Assessment/Plan VTE Prophylaxis VTE Prophylaxis Intervention: anti-embolic stocking, SCD's Lines/Catheters IV Catheter Type (from Nrsg): Peripheral IV Urinary Cath still in place: No Assessment/Plan Assessment/Plan 80 yo female with: 1. 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 Tolerating some po and awaiting transfer to tertiary facility for SMA stenting CT abdo/pelvis here with high-grade stenosis of the SMA. 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 therefore the last minimally invasive option is to cannulate the Right SCA which carries a risk of CVA Dr Miller has discussed options with Family and patient multiple times now, after agreeing to the procedure first, now they want to go to a tertiary level facility for the procedure, I have conveyed this to [facility] and they are looking at transferring patient to [place] or [facility] which are contracted with [facility], they are not with [facility] case management and patient. After trying all weekend, [place] declines inpatient transfer and the vascular surgeon there Dr Corina Lundberg is Ok with seeing the patient on Saturday AM at 9AM for 4 th opinion and further intervention if needed Continue Plavix. 2. Leukocytosis, almost certainly related to gastrointestinal complaint and possible ischemic colitis/mesenteric ischemia. Resolved. s/p 10 days of Imipenem, and no need for further abs per Dr Miller will d/c today. 3. Severe peripheral vascular disease. Continue secondary prevention, Plavix, Doppler RLE negative, Teds in place, elevate while in bed. Dr Miller evaluated patient too. F/u with Vascular Surgery at [place] in 48 hrs 4. Chronic obstructive pulmonary disease, with known tobacco use. Respiratory status stable so far. Nebs prn. 5. Tobacco abuse, cessation is counseled. Nicotine patch Prophylaxis: SCDs and PPI with GI ppx. Disposition: D/c home with outpatient follow up with Vascular Surgery on Tuesday 07/04 at 9 AM, Dr Corina Lundberg at [place] All family in agreement Subjective 24 Hr Interval Summary Free Text/Dictation Patient remains stable, still with abdo pain diffuse but tolerating po [place] declining inpatient transfer and offering outpatient apt with Dr Corina Lundberg, Vascular Surgery on Saturday at [place] at 9AM, after discussion with Family and patient she is agreeable with discharge and Dr Miller also is agreeable at this time since she is tolerated po and pain controlled No need for abx. Exam/Review of Systems Vital Signs Vitals Vital Signs Date Time Temp Pulse Resp B/P Pulse Ox O2 Delivery O2 Flow Rate FiO2 07/02/16 07:57 98.6 76 18 122/58 100 Intake and Output 07/01/16 07/01/16 07/02/16 14:59 22:59 06:59 Intake Total 2000 ml 350 ml Output Total 950 ml Balance 1050 ml 350 ml Exam Constitutional: alert, frail, oriented, other (thin) Respiratory: clear to auscultation, normal air movement Cardiovascular: nl pulses, regular rate and rhythm Gastrointestinal: soft, tender (diffuse mild ) Musculoskeletal: nl extremities to inspection Extremities: normal pulses, other (no edema, clubbing or cyanosis ) Neurological: MILK POWDER GRINDER II-XII intact, nl mental status, nl speech, other ( generalised weakness ) Results Result Diagram: 06/29/16 0455 06/29/16 0455 Results 24 hrs Laboratory Tests Test 07/01/16 11:56 07/01/16 17:37 07/01/16 21:32 07/02/16 07:46 Bedside Glucose 214 145 88 135 Medications Medications Current Medications Acetaminophen (Tylenol Tab) 650 mg Q4H PRN PO PAIN AND OR ELEVATED TEMP; Start 06/20/16 at 02:00 Morphine Sulfate (morphine) 4 mg Q4H PRN IV pain Last administered on 20:44; Admin Dose 4 MG; Start 06/20/16 at 02:00 Ondansetron HCl (Zofran Inj) 4 mg Q4H PRN IV NAUSEA AND/OR VOMITING Last administered on 06/26/16 14:14; Admin Dose 4 MG; Start 06/20/16 at 02:00 Hydralazine HCl (Apresoline) 25 mg Q6 PRN PO sbp>160; Start 06/20/16 at 02:00 Clopidogrel Bisulfate (plaVIX) 75 mg DAILY PO Last administered on 07/02/16 08 :14; Admin Dose 75 MG; Start 06/20/16 at 09:00 Gabapentin (Neurontin) 300 mg DAILY PO Last administered on 07/02/16 08:14; Admin Dose 300 MG; Start 06/20/16 at 09:00 Atorvastatin Calcium (Lipitor) 10 mg DAILY@21 PO Last administered on 21:34; Admin Dose 10 MG; Start 06/20/16 at 21:00 Nicotine (Nicoderm 21 Mg/ 24hr) 1 patch DAILY TRANSDERM Last administered on 08:15; Admin Dose 1 PATCH; Start 06/20/16 at 13:30 Miscellaneous Information 1 ea NOTE XX ; Start 06/20/16 at 14:00 Glucose (Glutose) 15 gm Q15M PRN PO DECREASED GLUCOSE; Start 06/20/16 at 14:00 Glucose (Glutose) 22.5 gm Q15M PRN PO DECREASED GLUCOSE; Start 06/20/16 at 14: 00 Dextrose (D50w Syringe) 25 ml Q15M PRN IV DECREASED GLUCOSE Last administered on 06/20/16 19:19; Admin Dose 25 ML; Start 06/20/16 at 14:00 Dextrose (D50w Syringe) 50 ml Q15M PRN IV DECREASED GLUCOSE; Start 06/20/16 at 14:00 Glucagon (Glucagen) 1 mg Q15M PRN IM DECREASED GLUCOSE; Start 06/20/16 at 14:00 Glucose 15 gm 15 gm Q15M PRN BUCCAL DECREASED GLUCOSE; Start 06/20/16 at 14:00 Potassium Chloride/Sodium Chloride (KCl/NS) 1,020 ml @ 50 mls/hr [id number] IV Last administered on 07/01/16 22:45; Admin Dose 50 MLS/HR; Start 06/22/16 at 09 :00 Acetaminophen/ Hydrocodone Bitart ([place] (5/325)) 1 tab Q4H PRN PO pain Last administered on 07/01/16 22:45; Admin Dose 1 TAB; Start 06/23/16 at 17:30 Docusate Sodium (Colace) 100 mg BID PO Last administered on 07/02/16 08:15; Admin Dose 100 MG; Start 06/24/16 at 21:00 Diagnostic Test (Pha) (Accu-Chek) 1 ea 02 XX ; Start 06/28/16 at 02:00 Lisinopril (Zestril) 20 mg DAILY PO Last administered on 07/02/16t 08:15; Admin Dose 20 MG; Start 06/30/16 at 09:00 NITIN ZEPEDA Jul 02, 2016 11:09
[2016-07-02] MEDS ORDERED: HYDR-3498 PO (12:47)
--- NOTE | 2016-07-02 12:55 | CONS ---
Date/Time of Note Date/Time of Note DATE: 07/02/16 TIME: 12:51 Assessment/Plan Assessment/Plan Chief Complaint/Hosp Course IMPRESSION: 1. Preoperative evaluation prior to treatment for likely ischemic bowel.- negative troponin x 3/NL EF by echo this admit. Lexiscan negative for ischemia with NL EF 06/21/16. Now s/p alternative approach attempt in OR unsuccessful due to subclavian stenosis 2. History of myocardial infarction. 3. Abnormal electrocardiogram, with biphasic inferior T-wave abnormalities. 4. Hypertension, borderline. 5. Dyslipidemia. 6. Ongoing tobacco usage. 7. Ischemic bowel. 8. Poor p.o. intake secondary to ischemic bowel, with subsequent weight loss. 9. Hyponatremia. Recc: -Continue zestril -Continue statin -Continue plavix -To be transferred to [facility] or [place] for higher level of care Problems: Consultation Date/Type/Reason Admit Date/Time Jun 20, 2016 at 15:01 Initial Consult Date 06/21/2016 Type of Consultation: Cardiology Reason for Consultation pre-op Referring Provider: NITIN ZEPEDA Exam/Review of Systems Vital Signs Vitals Vital Signs Date Time Temp Pulse Resp B/P Pulse Ox O2 Delivery O2 Flow Rate FiO2 07/02/16 07:57 98.6 76 18 122/58 100 Intake and Output 07/01/16 07/01/16 07/02/16 15:00 23:00 07:00 Intake Total 2000 ml 950 ml Output Total 950 ml 800 ml Balance 1050 ml 150 ml Exam Review of Systems: CONSTITUTIONAL: No fevers, chills. PULMONARY: No sob CARDIOVASCULAR: No chest pain/palpitations GASTROINTESTINAL:Mild abd pain GENITOURINARY: No hematuria/dysuria. MUSCULOSKELETAL: No myagias/arthalgias. PSYCHIATRIC: The patient denies depression. NEUROLOGIC: No weakness Constitutional: alert Psych: no complaints Head: normocephalic ENMT: mucosa pink and moist Neck: jvd (9 cm water), supple Respiratory: diminished breath sounds (at bases/B) Gastrointestinal: other (mild diiffuse TTP), soft Musculoskeletal: muscle tone (normal) Extremities: edema (none) Neurological: other (No focal deficits) Results Result Diagram: 06/29/16 0455 06/29/16 0455 Results 24 hrs Laboratory Tests Test 07/01/16 17:37 07/01/16 21:32 07/02/16 07:46 07/02/16 12:00 Bedside Glucose 145 88 135 264 H Medications Medications Current Medications Acetaminophen (Tylenol Tab) 650 mg Q4H PRN PO PAIN AND OR ELEVATED TEMP; Start 06/20/16 at 02:00 Morphine Sulfate (morphine) 4 mg Q4H PRN IV pain Last administered on 20:44; Admin Dose 4 MG; Start 06/20/16 at 02:00 Ondansetron HCl (Zofran Inj) 4 mg Q4H PRN IV NAUSEA AND/OR VOMITING Last administered on 06/26/16 14:14; Admin Dose 4 MG; Start 06/20/16 at 02:00 Hydralazine HCl (Apresoline) 25 mg Q6 PRN PO sbp>160; Start 06/20/16 at 02:00 Clopidogrel Bisulfate (plaVIX) 75 mg DAILY PO Last administered on 07/02/16 08 :14; Admin Dose 75 MG; Start 06/20/16 at 09:00 Gabapentin (Neurontin) 300 mg DAILY PO Last administered on 07/02/16 08:14; Admin Dose 300 MG; Start 06/20/16 at 09:00 Atorvastatin Calcium (Lipitor) 10 mg DAILY@21 PO Last administered on 21:34; Admin Dose 10 MG; Start 06/20/16 at 21:00 Nicotine (Nicoderm 21 Mg/ 24hr) 1 patch DAILY TRANSDERM Last administered on 08:15; Admin Dose 1 PATCH; Start 06/20/16 at 13:30 Miscellaneous Information 1 ea NOTE XX ; Start 06/20/16 at 14:00 Glucose (Glutose) 15 gm Q15M PRN PO DECREASED GLUCOSE; Start 06/20/16 at 14:00 Glucose (Glutose) 22.5 gm Q15M PRN PO DECREASED GLUCOSE; Start 06/20/16 at 14: 00 Dextrose (D50w Syringe) 25 ml Q15M PRN IV DECREASED GLUCOSE Last administered on 06/20/16 19:19; Admin Dose 25 ML; Start 06/20/16 at 14:00 Dextrose (D50w Syringe) 50 ml Q15M PRN IV DECREASED GLUCOSE; Start 06/20/16 at 14:00 Glucagon (Glucagen) 1 mg Q15M PRN IM DECREASED GLUCOSE; Start 06/20/16 at 14:00 Glucose 15 gm 15 gm Q15M PRN BUCCAL DECREASED GLUCOSE; Start 06/20/16 at 14:00 Potassium Chloride/Sodium Chloride (KCl/NS) 1,020 ml @ 50 mls/hr [id number] IV Last administered on 07/01/16 22:45; Admin Dose 50 MLS/HR; Start 06/22/16 at 09 :00 Acetaminophen/ Hydrocodone Bitart ([place] (5/325)) 1 tab Q4H PRN PO pain Last administered on 07/01/16 22:45; Admin Dose 1 TAB; Start 06/23/16 at 17:30 Docusate Sodium (Colace) 100 mg BID PO Last administered on 07/02/16 08:15; Admin Dose 100 MG; Start 06/24/16 at 21:00 Diagnostic Test (Pha) (Accu-Chek) 1 ea 02 XX ; Start 06/28/16 at 02:00 Lisinopril (Zestril) 20 mg DAILY PO Last administered on 07/02/16 08:15; Admin Dose 20 MG; Start 06/30/16 at 09:00 BALDO VASQUES Jul 02, 2016 12:55
[2016-07-02] MEDS ORDERED: NICO1PAT6 TRANSDERM (13:31)
[2016-07-02] MEDS: HYDROCODONE/APAP (5/325) TAB PO PRN (14:15)
== END 2016-07-02 14:25 | disposition home or self-care (01) | DRG 252 ==
LOC: E/R 20:59 → MS2 22:14 → OBSVTOIN 06-20 15:01 → MS2 06-23 12:49
PROVIDERS: ADMIT Legal Medicine; ATTEND Legal Medicine
PROC: B410YZZ Fluoroscopy of Abdominal Aorta using Other Contrast (ICD-10-PCS; 2016-06-22 16:00)
PROC: B310ZZZ Fluoroscopy of Thoracic Aorta (ICD-10-PCS; 2016-06-26)
PROC: B312ZZZ Fluoroscopy of Left Subclavian Artery (ICD-10-PCS; 2016-06-26)
PROC: 04CK0ZZ Extirpation of Matter from Right Femoral Artery, Open Approach (ICD-10-PCS; principal; 2016-06-26 09:00)
DX: I74.8 Embolism and thrombosis of other arteries (principal); K55.059 Acute (reversible) ischemia of intestine, part and extent unspecified; E11.22 Type 2 diabetes mellitus with diabetic chronic kidney disease; E87.1 Hypo-osmolality and hyponatremia; Z68.1 Body mass index [BMI] 19.9 or less, adult; K55.1 Chronic vascular disorders of intestine; E11.51 Type 2 diabetes mellitus with diabetic peripheral angiopathy without gangrene; I65.22 Occlusion and stenosis of left carotid artery; I72.4 Aneurysm of artery of lower extremity; J44.9 Chronic obstructive pulmonary disease, unspecified; F17.210 Nicotine dependence, cigarettes, uncomplicated; E78.5 Hyperlipidemia, unspecified; E87.6 Hypokalemia; D72.829 Elevated white blood cell count, unspecified; I12.9 Hypertensive chronic kidney disease with stage 1 through stage 4 chronic kidney disease, or unspecified chronic kidney disease; N18.9 Chronic kidney disease, unspecified; I25.10 Atherosclerotic heart disease of native coronary artery without angina pectoris; I25.2 Old myocardial infarction; R63.4 Abnormal weight loss; Z79.02 Long term (current) use of antithrombotics/antiplatelets; Z88.6 Allergy status to analgesic agent; Z79.84 Long term (current) use of oral hypoglycemic drugs
CPT/HCPCS: 36415; 71010; 74177; 75605; 75726; 78452; 80048; 80053; 80061; 81001; 81003; 82550; 82553; 82962; 83036; 83605; 83690; 83735; 84100; 84484; 85025; 85610; 85730; 86850; 86900; 86901; 86920; 93005; 93017; 93306; 93970; A9500; A9505; C1760; C1769; C1887; C1894; G0378; J0690; J0743; J1644; J1650; J1815; J2250; J2270; J2370; J2405; J2785; J3010; J3475; J3480; J7030; J7042; J7050; Q9967